=== PATIENT | female | born 1955 | race Caucasian/White ===

== ENCOUNTER 2016-10-12 07:46 | Observation (INO) ==
[2016-10-12] MEDS ORDERED: 0.9 % Sodium Chloride 1,000 ML IVC ONE (08:08)
--- NOTE | 2016-10-12 08:11 | Emergency Department Note ---
Disposition Clinical Impression: Chest pain Qualifiers: Chest pain type: unspecified Qualified Code(s): R07.9 - Chest pain, unspecified Decubitus skin ulcer Qualifiers: Pressure ulcer location: sacral region Pressure ulcer stage: stage 2 Qualified Code(s): L89.152 - Pressure ulcer of sacral region, stage 2 Gastritis Qualifiers: Gastritis type: unspecified gastritis Chronicity: acute Gastritis bleeding: without bleeding Qualified Code(s): K29.00 - Acute gastritis without bleeding UTI (urinary tract infection) Qualifiers: Urinary tract infection type: acute cystitis Hematuria presence: without hematuria Qualified Code(s): N30.00 - Acute cystitis without hematuria Disposition: Admitted As Inpatient Condition: Fair Referrals: NO,PCP [Non-Partnered Physician] - Forms: Work/School Release, ED Satisfaction Letter Time of Disposition: 11:59 General Adult HPI - General Chief complaint: ED General Medical Stated complaint: epigastric pain/ams Time Seen by Provider: 10/12/16 07:51 Source: EMS Limitations: altered mental status Nursing Notes Reviewed: Yes Vital Signs Reviewed: Yes - History of Present Illness HPI Narrative: This is a 60-year-old female with a past medical history of hypertension, asthma , hyperlipidemia, COPD. She presents to the emergency department via EMS from an extended care facility with a chief complaint of epigastric pain. Upon questioning, she admits to having this pain this morning and states that it lasted for 30 minutes. During her explanation, she began to mention episodes of being at a baby shower, which her immediately denied. He states that he has noticed over the last couple days that she has been confused. He states that she was recently prescribed Flexeril. He also states that she recently started prednisone for a COPD exacerbation. Upon further questioning of the patient, she admits that she is currently having pain in her sacrum, and her hips bilaterally. She denies any chest pain, pressure or tightness, cough, shortness of breath, fever, abdominal pain, increased urinary frequency or urgency, Pain Scale: 6 - Related Data Home Medications Medication Instructions Recorded Confirmed Albuterol Sulfate [Ventolin Hfa] 18 gm IH PRN PRN 07/03/16 08/30/16 Cholecalciferol (Vitamin D3) 2,000 unit PO DAILY 07/03/16 08/30/16 [Vitamin D3] Fluticasone/Salmeterol [Advair 1 each IH BID 07/03/16 08/30/16 500-50 Diskus] Gabapentin [Neurontin] 900 mg PO TID 07/03/16 08/30/16 HYDROcodone/Acet 10/325 mg [[place] 1 tab PO Q6HR PRN 07/03/16 08/30/16 10-325 mg] Ipratropium/Albuterol Neb [Duoneb] 3 ml IH BID PRN 07/03/16 08/30/16 Metoprolol [Lopressor] 12.5 mg PO DAILY 08/30/16 08/30/16 Previous Rx's Medication Instructions Recorded Allopurinol [Zyloprim 100 MG] 200 mg PO DAILY tablet 08/31/16 Allergies Allergy/AdvReac Type Severity Reaction Status Date / Time meloxicam [From Mobic] Allergy Hives Verified 07/03/16 06:16 Oxycodone [From Percocet] Allergy Hives Verified 07/03/16 06:16 Constitutional: Denies: fever, chills Eyes: Reports: as per HPI Cardiovascular: Denies: chest pain, palpitations, dyspnea on exertion, edema Gastrointestinal: Reports: abdominal pain (Epigastric, but not currently having it) Genitourinary: Denies: urgency, dysuria, frequency Musculoskeletal: Reports: back pain (Lumbar and sacral), other (Pain in both hips) Neurological: Reports: paresthesias (Not new), confusion. 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 However, some of the conversation she made did not make sense and she had some periods of rambling. ) - Head Head exam: normal inspection - Eye Eye exam: Present: normal appearance. Absent: scleral icterus, conjunctival injection - ENT ENT exam: normal oropharynx, mucous membranes moist - Neck Neck exam: Present: normal inspection, full ROM - Chest Chest inspection: Present: normal inspection, symmetric chest wall rise. Absent : tenderness - Respiratory Respiratory exam: Present: normal lung sounds bilaterally. Absent: respiratory distress, wheezes, accessory muscle use - Cardiovascular Cardiovascular exam: Present: tachycardia, normal heart sounds - Abdominal Exam Abdominal exam: Present: soft, Non-Tender - Extremities Exam Extremities exam: Present: other (Minor skin tearing on the left lower leg approximately 10 cm in length.) - Expanded Lower Extremity Exam Hip/Pelvis exam: Present: other (Sacral decubitus with some yellow purulent drainage. Surrounding erythema.) - Back Exam Back exam: Present: other (Sacral decubiti approximately 7 cm in diameter. There was some purulent yellow drainage. There are also a few satellite- appearing decubiti surrounding it. These were approximately 2 cm in diameter. There was one lumbar decubitus that was a 3 cm in diameter. There was erythema surrounding all areas.) - Neurological Exam Neurological exam: Present: alert, oriented X3, CN II-XII intact. Absent: motor sensory deficit Course - Reevaluation(s) Reevaluation #1: Reported epigastric abdominal pain that was tender to palpation with some nausea. We will order a GI cocktail to help with pain, and a repeat EKG. Time: 09:55 Vital Signs Temperature 98.6 F 10/12/16 07:47 Pulse Rate 121 10/12/16 07:47 Respiratory Rate 16 10/12/16 07:47 Blood Pressure 94/77 10/12/16 07:47 O2 Sat by Pulse Oximetry 92 10/12/16 07:47 Temperature 98.6 F 10/12/16 07:47 Pulse Rate 108 10/12/16 11:42 Respiratory Rate 14 10/12/16 11:42 Blood Pressure 112/77 10/12/16 11:42 O2 Sat by Pulse Oximetry 93 10/12/16 11:42 Oxygen Delivery Oxygen Delivery Nasal Cannula Medical Decision Making - [facility] Narrative Medical decision making narrative: This 60-year-old female presented to the emergency department via EMS from an extended care facility with a chief complaint of epigastric abdominal pain. It was noted that she appeared to be slightly confused. Upon questioning of the patient she had sacral pain as well as lumbar pain. Exam revealed sacral decubiti as well as lumbar decubiti. Due to her confusion, tachycardia, and hypotension, we obtained a CBC, lactate, BMP, urinalysis. We also obtained a CT scan of the lumbar and pelvis in order to see how far the wounds extend. The patient reported epigastric pain during her time in the emergency department and I repeated an EKG. This EKG showed new T-wave inversions in leads V1 and V2 and V3, as well as T-wave flattening in V4 V5 and V6. These changes are new from her EKG performed on 08/30/2016. The CT scans of her pelvis and sacrum came back negative for osteomyelitis and just revealed a draining infection. The urinalysis performed reveals a high level of leukocyte esterase and bacteria. She was given 1 g of Rocephin in the emergency department to help treat this. Due to this patient's chest pain, new T-wave inversions, sacral and lumbar decubiti, and urinary tract infection with some confusion, I feel that it is best to admit this patient for evaluation by the hospitalist. I examined this patient and my medical decision-making was reviewed with the THIRD GRADE TEACHER/PA/Advanced Practice Nurse/Resident Physician. I agree with the documented findings, disposition and treatment plan as described except to the extent set forth below. Patient was seen and evaluated on arrival with EMS and Dr. Harris, high-grade his evaluation and management plan, supervise care the patient's stay. Patient was nursing facility today they thought she was a little confused, she is alert person place and time but does not follow conversation well. Her thinks it is because they placed her on a muscle relaxant. She has also had some chest pain this morning which is now resolved. Was in the center of her chest versus epigastric. No shortness of breath. She is a little uncomfortable lying on her back shows a few decubitus ulcers on her buttocks one has a little bit of drainage. There is no signs of cellulitis. She also has a skin tear in her left lower extremity which is not new and shows no signs of infection. No focal deficits here. Her workup on her and check a troponin urinalysis and reassess. She is in agreement with this plan. Most likely she will need admission. Chest X-Ray 10/12/16 07:52 IMPRESSION: No acute process. D/ / Leighton Aranda MD / Leighton Aranda MD Interpreting Provider: Leighton Aranda MD 1010 hrs.: Waiting on CT. She does have a UTI which we will treat and then determine if she has an ear infection once we get the CT back. She may need admission. 1032 hrs.: Repeat an EKG on her and she does have some ST segment depression in V2 and V3 with no chest pain this was there on her first EKG also but is not so obvious on her old EKG from August. Regarding go ahead and bring her into the hospital she does have baby aspirin already is not having chest pain at this time. Chest X-Ray 10/12/16 07:52 IMPRESSION: No acute process. D/ / Leighton Aranda MD / Leighton Aranda MD Interpreting Provider: Leighton Aranda MD Lumbar Spine CT 10/12/16 08:36 IMPRESSION: Multilevel spinal decompression with expected postsurgical changes. Moderate lumbar scoliosis. Prominent right posterior epidural gas at L2-L3 suspected to be related to disc protrusion related to vacuum disc at this level. No nerve root compromise or significant compression of the thecal sac seen. This finding is favored to be insignificant. No finding worrisome for soft tissue infection or osteomyelitis. Moderate lumbar spondylosis. Cholelithiasis without finding of acute cholecystitis. D/ / Wilmer Valencia MD / Wilmer Valencia MD Interpreting Provider: Wilmer Valencia MD Pelvis CT 10/12/16 08:36 IMPRESSION: Interval left-sided laminectomy and laminotomy in the lower lumbar spine. No finding worrisome for soft tissue or bony infection. 3 cm chronic left ovarian cysts. D/ / Wilmer Valencia MD / Wilmer Valencia MD Interpreting Provider: Wilmer Valencia MD 1118 hrs.: CT shows no signs of osteomyelitis or abscess. Continue with antibiotics for urinalysis, bring her into the hospital to chest pain and the changes on EKG. Give her aspirin. She is pain-free at this time. Impression #1 is chest pain rule out ACS, #2 new ST segment depression rule out ACS, #3 is decubitus ulcer. #4 is dyspepsia. - Lab Data Result diagrams: 10/12/16 08:05 10/12/16 08:05 Lab Results 10/12/16 10/12/16 10/12/16 Range/Units 08:05 08:05 08:05 WBC 10.0 (4.3-11.1) K/mcL RBC 3.05 L (3.82-4.97) M/mcL Hgb 10.5 L (11.5-15.4) g/dL Hct 34.2 L (35.3-44.9) % MCV 112.1 H (83.0-100.0) fL MCH 34.4 H (28.0-33.3) pg MCHC 30.7 L (31.6-35.5) g/dL RDW 15.3 H (11.5-14.5) % Plt Count 238 (140-400) K/mcL MPV 9.4 (9.4-12.4) fL Immature Gran % 1.3 (0-4) % Seg Neutrophils % 64.1 % Lymphocytes % 22.9 % Monocytes % 11.4 % Eosinophils % 0.1 % Basophils % 0.2 % Neutrophils # 6.4 (1.6-8.9) K/mcL Lymphocytes # 2.3 (0.6-4.6) K/mcL Monocytes # 1.1 (0.0-1.3) K/mcL Eosinophils # 0.0 (0.0-0.6) K/mcL Basophils # 0.0 (0.0-0.2) K/mcL Platelet Estimate Normal (Normal) Macrocytosis Present A (Not Present) ESR 94 H (0-15) mm/hr Sodium 139 (136-145) mEq/L Potassium 3.9 (3.5-4.5) mEq/L Chloride 101 (98-109) mEq/L Carbon Dioxide 31 H (19-29) mEq/L BUN 12 (7-20) mg/dL Creatinine 0.62 (0.57-1.11) mg/dL Est GFR ( Amer) > 60 (> 60) Est GFR (Non-Af Amer) > 60 (> 60) BUN/Creatinine Ratio 19 (6-26) Glucose 85 (70-99) mg/dL Calculated Osmolality 287 (280-300) Lactic Acid (0.5-2.2) mmol/L Calcium 8.9 (8.6-10.8) mg/dL Troponin I (0-0.03) ng/mL Urine Color (Yellow) Urine Clarity (Clear) Urine pH (5.0-8.0) pH Units Ur Specific [place] (1.010-1.025) Urine Protein (Neg-Trace) mg/dL Urine Glucose (UA) (Normal) mg/dL Urine Ketones (Negative) mg/dL Urine Blood (Negative) Urine Nitrite (Negative) Urine Bilirubin (Negative) Urine Urobilinogen (Normal) mg/dL Ur Leukocyte Esterase (Negative) Urine Microscopic RBC (0-3) per hpf Urine Microscopic WBC (0-3) per hpf Ur Squamous Epith Cells (None-Few) per lpf Urine Bacteria (None-Few) per hpf Hyaline Casts (None-Few) per lpf Urine Yeast (None Seen) per hpf Ur Culture Indicated? (NO) 10/12/16 10/12/16 10/12/16 Range/Units 08:05 08:05 09:03 WBC (4.3-11.1) K/mcL RBC (3.82-4.97) M/mcL Hgb (11.5-15.4) g/dL Hct (35.3-44.9) % MCV (83.0-100.0) fL MCH (28.0-33.3) pg MCHC (31.6-35.5) g/dL RDW (11.5-14.5) % Plt Count (140-400) K/mcL MPV (9.4-12.4) fL Immature Gran % (0-4) % Seg Neutrophils % % Lymphocytes % % Monocytes % % Eosinophils % % Basophils % % Neutrophils # (1.6-8.9) K/mcL Lymphocytes # (0.6-4.6) K/mcL Monocytes # (0.0-1.3) K/mcL Eosinophils # (0.0-0.6) K/mcL Basophils # (0.0-0.2) K/mcL Platelet Estimate (Normal) Macrocytosis (Not Present) ESR (0-15) mm/hr Sodium (136-145) mEq/L Potassium (3.5-4.5) mEq/L Chloride (98-109) mEq/L Carbon Dioxide (19-29) mEq/L BUN (7-20) mg/dL Creatinine (0.57-1.11) mg/dL Est GFR ( Amer) (> 60) Est GFR (Non-Af Amer) (> 60) BUN/Creatinine Ratio (6-26) Glucose (70-99) mg/dL Calculated Osmolality (280-300) Lactic Acid 1.6 (0.5-2.2) mmol/L Calcium (8.6-10.8) mg/dL Troponin I 0.01 (0-0.03) ng/mL Urine Color Dark Yellow (Yellow) Urine Clarity Cloudy A (Clear) Urine pH 5.5 (5.0-8.0) pH Units Ur Specific [place] 1.025 (1.010-1.025) Urine Protein Negative (Neg-Trace) mg/dL Urine Glucose (UA) Normal (Normal) mg/dL Urine Ketones Negative (Negative) mg/dL Urine Blood Negative (Negative) Urine Nitrite Negative (Negative) Urine Bilirubin Small H (Negative) Urine Urobilinogen Normal (Normal) mg/dL Ur Leukocyte Esterase Large H (Negative) Urine Microscopic RBC 0-3 (0-3) per hpf Urine Microscopic WBC 30-50 H (0-3) per hpf Ur Squamous Epith Cells Few (None-Few) per lpf Urine Bacteria Moderate H (None-Few) per hpf Hyaline Casts Few (None-Few) per lpf Urine Yeast Many H (None Seen) per hpf Ur Culture Indicated? YES A (NO) - EKG Data EKG #1 EKG results narrative: Ventricular rate 121 bpm, CT interval 125 ms, QRS duration 85 ms QT, 304 ms, QTC 376 ms, normal axis EKG shows normal: sinus rhythm Rate: tachycardia [place]/QRS: normal Interpretation: unchanged when compared to prior tracing (date) EKG #2 EKG results narrative: 10/12/2016, 10:32 AM Ventricular rate 109 bpm, CT interval 134 ms, QRS duration 88 ms, QT 347 ms, QTC 411 ms, normal axis Sinus tachycardia with T waves inversions in V1, V2, V3 and some T-wave flattening in V4, V5, V6. This has increased from her EKG on 08/30/2016. These T-wave inversions are more evident than the one performed today at 7:50 AM on 10/12/2016.
[2016-10-12 08:26] LABS: Basophils % 0.2 %; Eosinophils % 0.1 %; Hematocrit 34.2 % (35.3-44.9); Hemoglobin 10.5 g/dL (11.5-15.4); Immature Granulocytes % 1.3 % (0-4); Lymphocytes # 2.3 K/mcL (0.6-4.6); Lymphocytes % 22.9 %; Mean Corpuscular HGB Conc 30.7 g/dL (31.6-35.5); Mean Corpuscular Hemoglobin 34.4 pg (28.0-33.3); Mean Corpuscular Volume 112.1 fL (83.0-100.0); Mean Platelet Volume 9.4 fL (9.4-12.4); Monocytes # 1.1 K/mcL (0.0-1.3); Monocytes % 11.4 %; Neutrophils # 6.4 K/mcL (1.6-8.9); Platelet Count 238 K/mcL (140-400); Red Blood Count 3.05 M/mcL (3.82-4.97); Red Cell Distribution Width 15.3 % (11.5-14.5); Segmented Neutrophils % 64.1 %
[2016-10-12 08:32] LABS: BUN/Creatinine Ratio 19 (6-26); Blood Urea Nitrogen 12 mg/dL (7-20); Calcium 8.9 mg/dL (8.6-10.8); Carbon Dioxide 31 mEq/L (19-29); Chloride 101 mEq/L (98-109); Glucose 85 mg/dL (70-99); Osmolality,Calculated 287 (280-300); Potassium 3.9 mEq/L (3.5-4.5); Sodium 139 mEq/L (136-145); eGFR For African Americans > 60 (> 60); eGFR For Non-African Americans > 60 (> 60)
[2016-10-12] MEDS ORDERED: *HR* FentaNYL (PF) 100 MCG/2 ML VIAL IVP ONE (08:50)
[2016-10-12 08:58] LABS: Macrocytosis Present (Not Present); Platelet Estimate Normal (Normal)
[2016-10-12 09:34] LABS: Bilirubin,Urine Small (Negative); Blood,Urine Negative (Negative); Clarity,Urine Cloudy (Clear); Color,Urine Dark Yellow (Yellow); Glucose,Urine (UA) Normal (Normal); Ketones,Urine Negative (Negative); Leukocyte Esterase,Urine Large (Negative); Nitrite,Urine Negative (Negative); PH,Urine 5.5 pH Units (5.0-8.0); Protein,Urine Negative (Neg-Trace); Specific Gravity,Urine 1.025 (1.010-1.025); Urobilinogen,Urine Normal (Normal)
[2016-10-12] MEDS ORDERED: Ondansetron 4 MG/2 ML VIAL IVP ONE (09:47)
[2016-10-12] MEDS ORDERED: GI Cocktail 40 ML EACH PO ONE (09:51)
[2016-10-12 09:55] LABS: RBC,Urine 0-3 per hpf (0-3); WBC,Urine 30-50 per hpf (0-3)
[2016-10-12 09:56] LABS: Bacteria,Urine Moderate per hpf (None-Few); Hyaline Casts,Urine Few per lpf (None-Few); Yeast,Urine Many per hpf (None Seen)
[2016-10-12 09:57] LABS: Squamous Epithelial Cell,Urine Few per lpf (None-Few)
[2016-10-12] MEDS ORDERED: Aspirin 325 MG TABLET PO ONE (11:16)
[2016-10-12] MEDS ORDERED: Acetaminophen 325 MG TABLET PO PRN (13:08)
[2016-10-12] MEDS ORDERED: Ondansetron 4 MG/2 ML VIAL IVP PRN (13:08)
[2016-10-12] MEDS ORDERED: Naloxone 0.4 MG/ML INJ IVP PRN (13:08)
--- NOTE | 2016-10-12 13:16 | Internal Med History&Physical ---
Date of Encounter: 10/12/16 Time of Encounter: 12:00 Assessment and Plan (1) Acute encephalopathy Current visit: Yes Status: Acute Likely drug-induced and related to underlying UTI. Hold muscle relaxants and narcotic pain medications, gabapentin at this time and resume gradually if the patient is in severe pain. (2) Chest pain Current visit: Yes Status: Acute Atypical chest pain, unclear history. EKG shows new changes of T-wave inversions in V2, V3 and flattened T waves in V4 through V6. Continue telemetry monitoring and trend troponins. Continue beta barby. Nuclear stress test in a.m. Qualifiers: Chest pain type: unspecified Qualified Code(s): R07.9 - Chest pain, unspecified (3) UTI (urinary tract infection) Current visit: Yes Status: Acute Patient symptoms of nausea and vomiting may be related to UTI. Urinalysis is suggestive of UTI. Continue IV Rocephin and follow up urine culture. Qualifiers: Urinary tract infection type: acute cystitis Hematuria presence: without hematuria Qualified Code(s): N30.00 - Acute cystitis without hematuria (4) Essential hypertension Current visit: Yes Status: Chronic (5) COPD (chronic obstructive pulmonary disease) Current visit: Yes Status: Chronic Not noted to be in acute exacerbation. Continue when necessary bronchodilators and supplemental oxygen as needed. Qualifiers: COPD type: emphysema Emphysema type: unspecified Qualified Code(s): J43.9 - Emphysema, unspecified (6) Tobacco abuse Current visit: Yes Status: Chronic Does not require nicotine transdermal patch at this time as she has not smoked for the last 4-5 weeks. (7) Weakness generalized Current visit: Yes Status: Chronic Secondary to recent back surgery and bedbound status. Physical and occupational therapy. (8) Tachycardia Current visit: Yes Status: Chronic Patient appears to have chronic sinus tachycardia, which could be related to underlying COPD and hypoxemia. Continue beta barby and titrate up as tolerated. (9) Decubitus skin ulcer Current visit: Yes Status: Chronic Present on admission. Noted to have a small opening of her midline back surgical incision likely due to sedentary status. Avoid friction, frequent repositioning. No signs of infection. Qualifiers: Pressure ulcer location: sacral region Pressure ulcer stage: stage 2 Qualified Code(s): L89.152 - Pressure ulcer of sacral region, stage 2 Internal Medicine - H&P: HPI Chief complaint: Chest pain Admitted From: Emergency Dept Plans for Post Hospital Care: Transfer Inp Rehab Fac History of present illness: Ms. Renee is a 60 year old female with history of COPD and recent back surgery , discharged to [facility] from [place] about 3 and half weeks ago, was sent in for evaluation of chest pain. Patient is slightly confused and unable to provide appropriate history likely due to pain medications and history is also obtained with the help of her at bedside. Patient reports that she began to have epigastric and lower chest pain last night, which has been intermittent and associated with 2 episodes of nausea and nonbloody vomiting this morning. She further reports some weird sensation in her upper abdomen but is unable to elaborate her symptoms further. Patient has been bedbound since her recent back surgery, working with physical therapy but unable to ambulate due to back pain and weakness. She also developed a small ulcer on her back and she reports significant pain from this. No reported fever, chills, cough, shortness of breath or diarrhea. Past Med Surg Social Fam HX - Past Medical History Medical history: asthma, COPD, hyperlipidemia, hypertension, other Psychiatric history: no psych history - Past Surgical History Surgical History: knee replacement (Left), orthopedic, other (Right shoulder rotator cuff surgery), other (Back surgery-laminectomy and possible spinal fusion) - Social History Smoking Status: Current every day smoker (Did not smoke since her recent hospitalization at [facility], about a month ago) Packs per day: 1-2 packs per day Smokeless Tobacco Status: No Alcohol use: heavy (Several drinks every day, last drink about a month ago) Drug use: none Occupational status: disabled Current living situation: [facility] Activity Level: Bed bound Recent Out of Country Travel Within the Last 8 Weeks: No - Family History Mother Living Status: Hx Family Cardiac Disorders: Yes ([place]) Hx Family Respiratory Disorders: Yes (COPD) Hx Family Cancer: No Hx Family GI Disorders: No Hx Family Endocrine Disorder: No Hx Family Neuromuscular Disorders: No Hx Family Neurologic Disorders: No Hx Family HEENT Disorders: No Hx Family Autoimmune Disorders: No Father Hx Family Cardiac Disorders: Yes (CAD) Internal Medicine - H&P: Meds Albuterol Sulfate [Ventolin Hfa] 18 gm IH PRN PRN 07/03/16 [History] Cholecalciferol (Vitamin D3) [Vitamin D3] 2,000 unit PO DAILY 07/03/16 [History] Fluticasone/Salmeterol [Advair 500-50 Diskus] 1 each IH BID 07/03/16 [History] Gabapentin [Neurontin] 900 mg PO TID 07/03/16 [History] HYDROcodone/Acet 10/325 mg [[place] 10-325 mg] 1 tab PO Q6HR PRN 07/03/16 [History ] Ipratropium/Albuterol Neb [Duoneb] 3 ml IH BID PRN 07/03/16 [History] Metoprolol [Lopressor] 12.5 mg PO DAILY 08/30/16 [History] Allopurinol [Zyloprim 100 MG] 200 mg PO DAILY tablet 08/31/16 [Rx] Allergies meloxicam [From Mobic] Allergy (Verified 07/03/16 06:16) Hives Oxycodone [From Percocet] Allergy (Verified 07/03/16 06:16) Hives All Systems PM: A 10-system review of systems was performed and is negative for pertinent findings except as documented above in the HPI. - Constitutional Constitutional: no chills, no fever(s), no night sweats - EENT Eyes: no change in vision, no discharge, no pain, no photophobia Ears: no ear discharge, no ear pain, no tinnitus Nose, mouth and throat: no dysphagia, no nasal discharge, no neck pain, no sore throat - Cardiovascular Cardiovascular ROS IM: chest pain - Respiratory Respiratory: no cough, no dyspnea, no wheezing, no excessive phlegm production - Gastrointestinal Gastrointestinal: abdominal pain, bloating, nausea, vomiting, no diarrhea, no hematemesis, no hematochezia, no melena - Genitourinary Genitourinary: no change in urinary stream, no dysuria, no flank pain, no hematuria - Musculoskeletal Musculoskeletal ROS IM: back pain, limited range of motion, muscle weakness - Integumentary Integumentary IM: no rash, no unusual bruising - Neurological Neurological ROS: confusion, no convulsions, no focal weakness, no numbness, no tingling, no tremor(s) - Hematologic/Lymphatic Hematologic/Lymphatic: no easy bruising - Constitutional Vitals: Temp Pulse Resp BP Pulse Ox 98.6 F 108 16 112/74 93 10/12/16 07:47 10/12/16 11:42 10/12/16 12:43 10/12/16 12:43 10/12/16 11:42 General appearance: Present: A&O X 2, answers questions appropriately (Problems with memory and intermittent confusion) - Respiratory Respiratory exam: Present: CTAB (Bilateral coarse breath sounds). Absent: accessory muscle use, rales, rhonchi, wheezes - Cardiovascular Cardiovascular exam: Present: RRR, +S1, +S2, tachycardia. Absent: diastolic murmur, gallop, rubs, systolic murmur - GI/Abdominal GI/Abdominal exam: Present: normal bowel sounds, soft, no peritoneal signs. Absent: distended, tenderness - Extremities Exam Extremities exam: Present: full ROM, warm, radial pulses palpable and symetrical. Absent: calf tenderness, cyanotic, pedal edema - Incison Incision: Present: open (Midline back incision noted to be open about 1 cm, no active discharge or signs of infection.) - Neurological Exam Neurological exam: Present: CN II-XII intact, oriented X3, no focal deficits, strengths equal and symetr throughout (4/5 motor power in left lower extremity) . Absent: pronater drift, facial droop, speech deficit - Skin Skin exam: Present: dry, intact, petechiae (Bilateral extremities) Internal Med - H&P Results - Labs CBC & Chem 7: 10/12/16 08:05 10/12/16 08:05 - EKG Data -: EKG Interpreted by Myself EKG shows normal: sinus rhythm, ST-T waves (Noted to have T-wave inversions in V2, V3 and flattening T waves in V4 through V6) Rate: tachycardia
[2016-10-12] MEDS ORDERED: Ipratropium/Albuterol Neb 3 ML IH PRN (13:36)
[2016-10-12] MEDS ORDERED: *HR* HYDROcodone/Acet 10/325 mg TABLET PO PRN (18:41)
[2016-10-12] MEDS ORDERED: Budesonide/Formoterol 160/4.5 MDI IH SCH (21:00)
[2016-10-13 01:11] LABS: Basophils % 0.2 %; Eosinophils % 0.5 %; Hematocrit 29.4 % (35.3-44.9); Hemoglobin 9.3 g/dL (11.5-15.4); Immature Granulocytes % 1.1 % (0-4); Lymphocytes # 2.2 K/mcL (0.6-4.6); Lymphocytes % 25.7 %; Mean Corpuscular HGB Conc 31.6 g/dL (31.6-35.5); Mean Corpuscular Hemoglobin 35.4 pg (28.0-33.3); Mean Corpuscular Volume 111.8 fL (83.0-100.0); Mean Platelet Volume 9.8 fL (9.4-12.4); Monocytes # 1.1 K/mcL (0.0-1.3); Monocytes % 12.9 %; Platelet Count 212 K/mcL (140-400); Red Blood Count 2.63 M/mcL (3.82-4.97); Red Cell Distribution Width 15.7 % (11.5-14.5); Segmented Neutrophils % 59.6 %
[2016-10-13 01:26] LABS: BUN/Creatinine Ratio 19 (6-26); Blood Urea Nitrogen 13 mg/dL (7-20); Calcium 8.6 mg/dL (8.6-10.8); Carbon Dioxide 28 mEq/L (19-29); Chloride 104 mEq/L (98-109); Chol/HDL Ratio 5.7 (0-4.9); Cholesterol 142 mg/dL (< 200); Glucose 100 mg/dL (70-99); HDL Cholesterol 25 mg/dL (40-59); LDL Cholesterol,Calculated 82 mg/dL (0-99); Magnesium 1.3 mg/dL (1.6-2.6); Osmolality,Calculated 290 (280-300); Potassium 3.7 mEq/L (3.5-4.5); Sodium 140 mEq/L (136-145); Triglycerides 174 mg/dL (< 150); eGFR For African Americans > 60 (> 60); eGFR For Non-African Americans > 60 (> 60)
[2016-10-13 01:48] LABS: Anisocytosis 1+ (Not Present)
[2016-10-13 01:52] LABS: Macrocytosis Present (Not Present)
[2016-10-13 01:53] LABS: Platelet Estimate Normal (Normal)
[2016-10-13] MEDS ORDERED: Regadenoson 0.4 MG/5 ML SYRINGE IVP ONE (06:00)
--- NOTE | 2016-10-13 08:21 | Electrocardiograph Report ---
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
--- NOTE | 2016-10-13 08:23 | Electrocardiograph Report ---
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
[2016-10-13] MEDS ORDERED: Metoprolol XL (24 HR) Succ 25 MG TAB.ER.24H PO SCH (09:00)
[2016-10-13] MEDS: *HR* HYDROcodone/Acet 10/325 mg TABLET PO PRN ×2 (09:24→16:58)
--- NOTE | 2016-10-13 09:28 | Internal Med Progress Note ---
Date of Encounter: 10/13/16 Time of Encounter: 09:28 - Assessment and plan (1) UTI (urinary tract infection) Current Visit: Yes Status: Acute Assessment and plan: Acute metabolic encephalopathy likely secondary to UTI Continue Rocephin day 2 Await final report of urine culture Fall precautions Qualifiers: Urinary tract infection type: acute cystitis Hematuria presence: without hematuria Qualified Code(s): N30.00 - Acute cystitis without hematuria (2) Abnormal EKG Current Visit: Yes Status: Acute Assessment and plan: EKG showed T-wave inversions in the anterior leads and flattening on the lateral leads, unchanged from prior EKG Troponins are negative. Stress test scheduled (3) Acute encephalopathy Current Visit: Yes Status: Acute (4) Volume overload Current Visit: Yes Status: Acute Assessment and plan: No history of CHF Start Lasix, avoid IV fluids Qualifiers: Hypervolemia type: unspecified Qualified Code(s): E87.70 - Fluid overload, unspecified (5) Weakness generalized Current Visit: Yes Status: Chronic Assessment and plan: Bilateral lower extremity weakness, upper extremities are less weak (6) Neuroforaminal stenosis of lumbar spine Current Visit: No Status: Chronic Assessment and plan: Recent laminectomy. The patient does not complain of any more weakness on her legs worse than when she left [place]. Consider MRI if worse No incontinence (7) COPD (chronic obstructive pulmonary disease) Current Visit: Yes Status: Chronic Assessment and plan: No exacerbation Qualifiers: COPD type: emphysema Emphysema type: unspecified Qualified Code(s): J43.9 - Emphysema, unspecified (8) Tobacco abuse Current Visit: Yes Status: Chronic Assessment and plan: Smoking cessation counseling, nicotine patch (9) Decubitus skin ulcer Current Visit: Yes Status: Chronic Qualifiers: Pressure ulcer location: sacral region Pressure ulcer stage: stage 2 Qualified Code(s): L89.152 - Pressure ulcer of sacral region, stage 2 - Subjective Interval history: The patient says that she has been having chest pain on and off for the past few days. Denies any dysuria at the moment. No dizziness. Her legs have been weak but not weaker than when she left [place] after that spine surgical procedure. Denies any shortness of breath or chest pain at the moment. No fevers overnight. Less confused - Constitutional Vitals: Temp Pulse Resp BP Pulse Ox 98.2 F 105 15 118/90 90 10/13/16 07:25 10/13/16 07:25 10/13/16 07:25 10/13/16 07:25 10/13/16 07:25 General appearance: Present: A&O X 3, answers questions appropriately (Problems with memory and intermittent confusion) - Head Head exam: Present: atraumatic, normocephalic - Eye Eye exam: Present: PERRL, conjuntiva pink, sclera anicteric Pupils: Present: PERRL - Neck Neck exam general surgery: Present: supple, trachea midline. Absent: lymphadenopathy - Respiratory Respiratory exam: Present: decreased breath sounds, CTAB, rales (Bibasilar fine crackles). Absent: accessory muscle use, rhonchi, wheezes - Cardiovascular Cardiovascular exam: Present: RRR, +S1, +S2, tachycardia. Absent: diastolic murmur, gallop, rubs, systolic murmur - GI/Abdominal GI/Abdominal exam: Present: normal bowel sounds, soft, no peritoneal signs. Absent: distended, tenderness - Extremities Exam Extremities exam: Present: warm, radial pulses palpable and symetrical. Absent : calf tenderness, cyanotic, pedal edema - Neurological Exam Neurological exam: Present: CN II-XII intact, oriented X3, no focal deficits. Absent: pronater drift, facial droop, speech deficit - Skin Skin exam: Present: dry. Absent: intact (Left husain laceration, Stage II sacral pressure ulcer) Internal Medicine: Result - Labs CBC & Chem 7: 10/13/16 00:42 10/13/16 00:42 Labs: Short CBC 10/13/16 Range/Units 00:42 WBC 8.4 (4.3-11.1) K/mcL Hgb 9.3 L (11.5-15.4) g/dL Hct 29.4 L (35.3-44.9) % Plt Count 212 (140-400) K/mcL Neutrophils # 5.0 (1.6-8.9) K/mcL BMP 10/13/16 00:42 Sodium 140 Potassium 3.7 Chloride 104 Carbon Dioxide 28 BUN 13 Creatinine 0.69 Glucose 100 H Calcium 8.6 Cardiac Enzymes 10/12/16 10/12/16 10/13/16 Range/Units 13:32 19:27 00:42 Troponin I 0.00 0.00 0.00 (0-0.03) ng/mL Consult Discharge Plan - Plan Referrals: Renard Spears DO [Primary Care Provider] - (Web request 10/12/2016)
[2016-10-13] MEDS: Nicotine 21 MG PATCH.TD24 TD SCH (10:23)
[2016-10-13] MEDS: Budesonide/Formoterol 160/4.5 MDI IH SCH ×2 (10:47→19:49)
[2016-10-13] MEDS: Furosemide 40 MG/4 ML VIAL IVP SCH (10:52)
[2016-10-13] MEDS ORDERED: Magnesium Sulfate 2 GM in D5% in Water 100 ML IVPB ONE (12:00)
[2016-10-13] MEDS: Magnesium Oxide 400 MG TABLET PO SCH ×2 (12:39→21:25)
[2016-10-13] MEDS: Fluconazole 100 MG TABLET PO SCH (12:40)
--- NOTE | 2016-10-13 13:00 | Cardiology Consult Note ---
Date of Encounter: 10/13/16 Time of Encounter: 12:40 Assessment and Plan (1) Tachycardia Current Visit: Yes Status: Chronic Upon review, HR typically 103-124 in the outpatient setting per PCP notes. Telemetry review: avg KR=945 ST. No arrhythmia noted. ECG upon presentation demonstrates non-specific ST-T wave changes HR 121 ST--no significant changes from prior ECG in June. HR elevated likely secondary to UTI. Of note, HgB 9.3, ESR 95, and has x3 decubitis ulcers on coccyx (stage 2) which could also contribute to tachycardia. Mag 1.3--will also replace with IVPB. Check TSH. Check echocardiogram. Recommend further evaluation of anemia, will defer to primary service. (2) Chest pain Current Visit: Yes Status: Acute Atypical chest pain in the setting of AMS d/t UTI. Suspect GI in etiology as occurs after meals. Troponin negative x4, no significant ECG changes compared to prior study. Echo ordered. No further testing recommended at this time, will cancel stress test. Qualifiers: Chest pain type: unspecified Qualified Code(s): R07.9 - Chest pain, unspecified Discussion w patient/family: The assessment and plan as outlined above was discussed with the patient and/or family members who expressed understanding and agreement. All questions were answered. Thank you for involving us in the care of your patient. Please call with any questions. The patient will be discussed and reviewed with Dr. Carlisle; changes to be made accordingly. History of Present Illness Consult date: 10/13/16 Requesting physician: Pablo Garcia Consult reason: ECG changes Chief complaint: AMS, left-sided chest/epigastric pain History of present illness: Ms. Renee is a 60 year old female with PMHx significant for COPD, HTN, HLD, and recent back surgery ([place]) who presented to the ED due to complaints of epigastric/left-sided chest discomfort and also worsening confusion at the [facility]. Patient has been at [facility] since d/c from [place] nearly 1 month ago; she states she is primarily bedbound. Reports left-sided chest/epigastric discomfort that typically occurs after taking morning pills and often occurs after eating. Upon arrival to ED she was found to have UTI. ECG demonstrates non -specific ST changes. Cardiology consulted today for abnormal ECG. She continues to be confused upon exam. Past Med Surg Social Fam HX - Past Medical History Attestation: Yes The following information was validated with the patient. Source: patient Medical history: asthma, COPD, hyperlipidemia, hypertension Psychiatric history: no psych history - Past Surgical History Surgical History: knee replacement, orthopedic, other, other (recent back surgery at [place]) - Social History Smoking Status: Current every day smoker Packs per day: 1-2 packs per day--quit 3 weeks ago Smokeless Tobacco Status: No Alcohol use: heavy (has quit since back surgery, now in ECF) Drug use: none Current living situation: [facility] - Family History Mother Living Status: Hx Family Cardiac Disorders: Yes ([place]) Hx Family Respiratory Disorders: Yes (COPD) Hx Family Cancer: No Hx Family GI Disorders: No Hx Family Endocrine Disorder: No Hx Family Neuromuscular Disorders: No Hx Family Neurologic Disorders: No Hx Family HEENT Disorders: No Hx Family Autoimmune Disorders: No Father Hx Family Cardiac Disorders: Yes (CAD) Medications and Allergies Albuterol Sulfate [Ventolin Hfa] 2 puff IH Q4H PRN 07/03/16 [History] Fluticasone/Salmeterol [Advair 500-50 Diskus] 1 each IH BID 07/03/16 [History] Gabapentin [Neurontin] 300 mg PO HS 07/03/16 [History] HYDROcodone/Acet 10/325 mg [[place] 10-325 mg] 2 tab PO Q4H 07/03/16 [History] Ipratropium/Albuterol Neb [Duoneb] 3 ml IH QID PRN 07/03/16 [History] Allopurinol [Zyloprim 100 MG] 200 mg PO DAILY tablet 08/31/16 [Rx] Cyclobenzaprine [Flexeril] 10 mg PO Q8H 10/12/16 [History] Docusate [Colace] 100 mg PO BID 10/12/16 [History] Furosemide [Lasix] 40 mg PO DAILY 10/12/16 [History] HYDROcodone/Acet 10/325 mg [[place] 10-325 mg] 2 tab PO Q4HR PRN 10/12/16 [History ] Metoprolol XL (24 HR) Succ [Toprol XL] 12.5 mg PO DAILY 10/12/16 [History] Nystatin POWDER [Nystop] 1 appl TP DAILY PRN 10/12/16 [History] Polyethylene Glycol 3350 [Gavilax] 17 gm PO DAILY 10/12/16 [History] Potassium Chloride [K-Tab ER] 20 meq PO DAILY 10/12/16 [History] Allergies meloxicam [From Mobic] Allergy (Verified 07/03/16 06:16) Hives Oxycodone [From Percocet] Allergy (Verified 07/03/16 06:16) Hives tramadol Adverse Reaction (Verified 10/12/16 16:44) See Comments per assisted list All Systems Review: A 10-system review of systems was performed and is negative for pertinent findings except as documented above in the HPI. - Cardiovascular Cardiovascular: as per HPI Physical Examination Vital Signs, Last 4 Hours Temp Pulse Resp BP Pulse Ox 10/13/16 11:25 98.4 F 111 13 120/80 95 10/13/16 10:56 90 General: Conversant, No Apparent Distress, Other (morbidly obese, confused at times. ) HEENT: Atraumatic, Normocephaly, Mucus Membranes Moist Cardiac: Reg Rate and Rhythm, Normal S1 and S2 Lungs: Other (Anterior wheezes) Neuro: Alert and responsive (alert to self and place, confused at times. ) Abdomen: Soft Skin: No rashes noted on visualized skin Musculoskeletal: No Chest Wall Tenderness Extremities: No Edema, Normal Pulses Other: Reported x3 stage 2 decubitis ulcers on coccyx per bedside RN Results 10/13/16 00:42 10/13/16 00:42 Lab Results 10/12/16 10/12/16 10/13/16 13:32 19:27 00:42 WBC Hgb Hct Plt Count Sodium Potassium Chloride Carbon Dioxide BUN Creatinine Glucose Calcium Magnesium Troponin I 0.00 0.00 0.00 10/13/16 10/13/16 00:42 00:42 WBC 8.4 Hgb 9.3 L Hct 29.4 L Plt Count 212 Sodium 140 Potassium 3.7 Chloride 104 Carbon Dioxide 28 BUN 13 Creatinine 0.69 Glucose 100 H Calcium 8.6 Magnesium 1.3 L Troponin I - Imaging and Cardiology Echo: pending Other Results: 12 hour tele: avg WO=[id number] ST. No significant event noted. - EKG Interpretation EKG results cardiology: personally reviewed Consult Discharge Plan - Plan Referrals: Renard Spears DO [Primary Care Provider] - (Web request 10/12/2016)
[2016-10-13 14:00] LABS: Thyroid Stimulating Hormone 1.381 mcIU/mL (0.350-4.840)
[2016-10-14] MEDS: *HR* Enoxaparin 40 MG/0.4 ML SYRINGE SQ SCH (05:39)
[2016-10-14 06:48] LABS: BUN/Creatinine Ratio 18 (6-26); Blood Urea Nitrogen 11 mg/dL (7-20); Calcium 8.2 mg/dL (8.6-10.8); Carbon Dioxide 28 mEq/L (19-29); Chloride 103 mEq/L (98-109); Glucose 75 mg/dL (70-99); Osmolality,Calculated 284 (280-300); Potassium 3.6 mEq/L (3.5-4.5); Sodium 138 mEq/L (136-145); eGFR For African Americans > 60 (> 60); eGFR For Non-African Americans > 60 (> 60)
[2016-10-14 06:53] LABS: Hematocrit 28.9 % (35.3-44.9); Hemoglobin 9.1 g/dL (11.5-15.4); Mean Corpuscular HGB Conc 31.5 g/dL (31.6-35.5); Mean Corpuscular Hemoglobin 35.3 pg (28.0-33.3); Mean Platelet Volume 9.8 fL (9.4-12.4); Platelet Count 185 K/mcL (140-400); Red Blood Count 2.58 M/mcL (3.82-4.97); Red Cell Distribution Width 15.9 % (11.5-14.5)
[2016-10-14] MEDS: Budesonide/Formoterol 160/4.5 MDI IH SCH ×2 (08:08→19:45)
[2016-10-14] MEDS: Magnesium Oxide 400 MG TABLET PO SCH ×2 (09:48→19:46)
[2016-10-14] MEDS: Fluconazole 100 MG TABLET PO SCH (09:49)
[2016-10-14] MEDS: Furosemide 40 MG/4 ML VIAL IVP SCH (09:49)
[2016-10-14] MEDS: Nicotine 21 MG PATCH.TD24 TD SCH (09:51)
--- NOTE | 2016-10-14 10:06 | Discharge Summary ---
<Luis Ziegler - Last Filed: 10/14/16 15:39> Date of Encounter: 10/14/16 Time of Encounter: 10:02 - Discharge Diagnosis (1) Weakness generalized Priority: Primary Status: Chronic Comments: Likely secondary to UTI, decubitus ulcers, increased cardiac demand 2/2 tachycardia (2) Chest pain Priority: Primary Status: Resolved Comments: Possibly due to GI causes vs cardiac Qualifiers: Chest pain type: other chest pain Qualified Code(s): R07.89 - Other chest pain; R07.8 - Other chest pain (3) Decubitus skin ulcer Priority: Primary Status: Chronic Qualifiers: Pressure ulcer location: sacral region Pressure ulcer stage: stage 2 Qualified Code(s): L89.152 - Pressure ulcer of sacral region, stage 2 (4) UTI (urinary tract infection) Priority: Primary Status: Acute Qualifiers: Urinary tract infection type: acute cystitis Hematuria presence: without hematuria Qualified Code(s): N30.00 - Acute cystitis without hematuria (5) COPD (chronic obstructive pulmonary disease) Priority: Secondary Status: Chronic Qualifiers: COPD type: emphysema Emphysema type: unspecified Qualified Code(s): J43.9 - Emphysema, unspecified (6) Acute encephalopathy Priority: Primary Status: Resolved Comments: Likely secondary to infection vs cardiac - Discharge Medications Prescriptions: Fluconazole [Diflucan] 100 mg PO DAILY #13 tab Home Medications: Albuterol Sulfate [Ventolin Hfa] 2 puff IH Q4H PRN 07/03/16 [History] Fluticasone/Salmeterol [Advair 500-50 Diskus] 1 each IH BID 07/03/16 [History] Gabapentin [Neurontin] 300 mg PO HS 07/03/16 [History] HYDROcodone/Acet 10/325 mg [[place] 10-325 mg] 2 tab PO Q4H 07/03/16 [History] Ipratropium/Albuterol Neb [Duoneb] 3 ml IH QID PRN 07/03/16 [History] Allopurinol [Zyloprim 100 MG] 200 mg PO DAILY tablet 08/31/16 [Rx] Cyclobenzaprine [Flexeril] 10 mg PO Q8H 10/12/16 [History] Docusate [Colace] 100 mg PO BID 10/12/16 [History] Furosemide [Lasix] 40 mg PO DAILY 10/12/16 [History] HYDROcodone/Acet 10/325 mg [[place] 10-325 mg] 2 tab PO Q4HR PRN 10/12/16 [History ] Metoprolol XL (24 HR) Succ [Toprol Xl] 12.5 mg PO DAILY 10/12/16 [History] Nystatin POWDER [Nystop] 1 appl TP DAILY PRN 10/12/16 [History] Polyethylene Glycol 3350 [Gavilax] 17 gm PO DAILY 10/12/16 [History] Potassium Chloride [K-Tab ER] 20 meq PO DAILY 10/12/16 [History] Fluconazole [Diflucan] 100 mg PO DAILY #13 tab 10/14/16 [Rx] Allergies/Adverse Reactions: Allergies meloxicam [From Mobic] Allergy (Verified 07/03/16 06:16) Hives Oxycodone [From Percocet] Allergy (Verified 07/03/16 06:16) Hives tramadol Adverse Reaction (Verified 10/12/16 16:44) See Comments per half-way list Procedures/tests Complete & Pending: Procedures Performed prior 72 hours Category Date Time Status EV echocardiogram Routine Y 10/13/16 09:31 Completed Date of admission: 10/12/16 12:30 Primary care physician: Renard Spears DO Consults: 10/12/16 13:10 Consult to Utility Manager [CONS] Routine Reason for SW Consult: Discharge back to half-way 10/13/16 12:14 Consult to Cardiology [CONS] Routine Comment: Consulting Provider: Cardiology Justin Reason for Consult: cp abnormal ekg Call Completed: Yes 10/14/16 09:51 Consult to Occupational Therapy [CONS] Routine Comment: Evaluate, develop and implement POC Reason for Consult: Evaluate and plan for ECF needs. Consult to Physical Therapy [CONS] Routine Comment: Evaluate, develop and implement POC Reason for Consult: Evaluate and plan for ECF needs Discharging clinician: Luis Ziegler Anticipated date of discharge: 10/14/16 - Patient Status Disposition: Transfer SNF Condition: Fair Overall status at discharge: patient is progressing back to baseline - Discharge Instructions Instructions: Fluconazole (By mouth), Urinary Tract Infection in Women (DC) Follow Up With: Renard Spears DO [Primary Care Provider] - (patient will follow up with pcp at ecf) Additional Instructions: Please follow up with your primary care physician upon discharge. Continue take your medication until prescription is complete. - Diet and Activity Activity: as per physical therapy Diet: advance to your usual diet Hospital course: Ms. Renee is a 60 year old female who is in her [facility] with a chief complaint of chest pain and lower epigastric pain 1 day. Past medical history of asthma, COPD, hyperlipidemia, hypertension. She also reports having recent back surgery approximately one month ago. She has recently been bedbound secondary to the surgery. He reports trying physical therapy what we will was unable to complete secondary to pain. She is also complaining of nausea and vomiting at this time, as well as dysuria. She denies fever, chills, cough, stress breath, diarrhea. Upon presentation to emergency department patient was noted to be tachycardic with her heart rate of 110, with a blood pressure 86/58. Labs are significant for macrocytic anemia with an H&H of 10.5/34.2. Elevated bicarbonate of 31. Actiq acid was 1.6. Prominent was 0.01. EKG did not range of motion sinus rhythm with T-wave inversions in V2, V3 and flattening of T waves in V4 and V6. CT pelvis scan came back negative osteomyelitis. Chest x-ray was negative for any acute process. Urinalysis was significant for urinary tract infection, patient was also noted to be confused on presentation demonstrates that her was present at bedside denies. Physical exam also revealed sacral and lumbar decubitus ulcers stage II. She was started on 1 g of Rocephin admitted to medicine service with diagnosis of acute encephalopathy, urinary tract infection , decubitus ulcers, chest pain. During course hospital stay, patient's urine culture came back positive for Ashli albicans. She was started on fluconazole 100 mg. Cardiology was consulted for the chest pain, troponins were negative 4, echocardiogram revealed an ejection fraction of 55% with indeterminate left ventricular diastolic dysfunction. The etiology of chest pain is GI in nature as it is associated with meals. Her tachycardia resolved and was likely secondary to infection. On day of discharge, patient reports that her confusion is gone when she was alert and oriented 3, she denies any symptoms of weakness, fevers , chills, shortness of breath, chest pain. She does admit to monitored amount of back pain. Patient will be discharged to extended care facility pending social work placement in stable medical condition after being evaluated by physical therapy and occupational therapy. - Time Spent with Patient Total time spent providing and/or coordinating discharge services:30 min Greater than 30 minutes - Constitutional Vitals: Temp Pulse Resp BP Pulse Ox 98.9 F 85 18 135/73 92 10/14/16 07:41 10/14/16 07:41 10/14/16 07:41 10/14/16 07:41 10/14/16 07:41 General appearance: Present: A&O X 3, answers questions appropriately (Problems with memory and intermittent confusion) Exam: Gen.: Vitals noted. No acute distress. AAOx3 HEENT: PERRL/EOMI, oropharynx clear, Normocephalic, atraumatic Neck: Supple. No adenopathy. Cardiac: RRR, no murmur, +S1/S2 Pulmonary: Mild wheezing diffusely. no rales or rhonchi, equal chest expansion Abdomen: soft, nontender, BS noted, no guarding Back: Nontender throughout. Stage II sacral ulcer MSK: unable to assess ROM, strength 2/2 effort, back pain. no joint swelling noted Extremities: no BLE edema, nontender calf, no cyanosis or clubbing Neuro: A&Ox3, moves all extremities, no focal deficits Psych: Appropriate mood and behavior <Pablo Garcia - Last Filed: 10/14/16 15:41> Date of Encounter: 10/14/16 - Discharge Diagnosis (1) UTI (urinary tract infection) Status: Acute Qualifiers: Urinary tract infection type: acute cystitis Hematuria presence: without hematuria Qualified Code(s): N30.00 - Acute cystitis without hematuria (2) Abnormal EKG Status: Acute (3) Acute encephalopathy Status: Resolved (4) Volume overload Status: Acute Qualifiers: Hypervolemia type: unspecified Qualified Code(s): E87.70 - Fluid overload, unspecified (5) Weakness generalized Status: Chronic (6) Neuroforaminal stenosis of lumbar spine Status: Chronic (7) COPD (chronic obstructive pulmonary disease) Status: Chronic Qualifiers: COPD type: emphysema Emphysema type: unspecified Qualified Code(s): J43.9 - Emphysema, unspecified (8) Tobacco abuse Status: Chronic (9) Decubitus skin ulcer Status: Chronic Qualifiers: Pressure ulcer location: sacral region Pressure ulcer stage: stage 2 Qualified Code(s): L89.152 - Pressure ulcer of sacral region, stage 2 Procedures/tests Complete & Pending: Procedures Performed prior 72 hours Category Date Time Status EV echocardiogram Routine Y 10/13/16 09:31 Completed Date of admission: 10/12/16 12:30 Primary care physician: Renard Spears DO Consults: 10/12/16 13:10 Consult to Utility Manager [CONS] Routine Reason for SW Consult: Discharge back to half-way 10/13/16 12:14 Consult to Cardiology [CONS] Routine Comment: Consulting Provider: Cardiology Alysa Reason for Consult: cp abnormal ekg Call Completed: Yes 10/14/16 09:51 Consult to Occupational Therapy [CONS] Routine Comment: Evaluate, develop and implement POC Reason for Consult: Evaluate and plan for ECF needs. Consult to Physical Therapy [CONS] Routine Comment: Evaluate, develop and implement POC Reason for Consult: Evaluate and plan for ECF needs Hospital course: Ms. Renee is a 60 year old female - Time Spent with Patient Total time spent providing and/or coordinating discharge services: - Constitutional Vitals: Temp Pulse Resp BP Pulse Ox 98.4 F 89 18 96/67 92 10/14/16 13:00 10/14/16 13:00 10/14/16 13:00 10/14/16 13:00 10/14/16 13:00 - Attending Attestation Ashli UTI complete 2 weeks total of fluconazole time pent on this discharge 40 min I examined this patient and my medical decision-making was reviewed with the Resident Physician. I agree with the documented findings, disposition and treatment plan as described except to the extent set forth below.
--- NOTE | 2016-10-14 10:30 | Physician Discharge Referral ---
<Luis Ziegler - Last Filed: 10/14/16 10:28> ExtendedCare Referral Info Transfer To: [place] Provider in Charge after Transfer: PCP Institutional Level of Care: Skilled - Diagnosis (1) Weakness generalized Priority: Primary Status: Chronic (2) Chest pain Priority: Primary Status: Resolved (3) Decubitus skin ulcer Priority: Primary Status: Chronic (4) UTI (urinary tract infection) Priority: Primary Status: Acute (5) COPD (chronic obstructive pulmonary disease) Priority: Secondary Status: Chronic (6) Acute encephalopathy Priority: Primary Status: Resolved Prognosis: Fair Aware of Diagnosis: Patient, Family Aware of Prognosis: Patient, Family - Transfer Medications Prescriptions: Fluconazole [Diflucan] 100 mg PO DAILY #13 tab Home Medications: Albuterol Sulfate [Ventolin Hfa] 2 puff IH Q4H PRN 07/03/16 [History] Fluticasone/Salmeterol [Advair 500-50 Diskus] 1 each IH BID 07/03/16 [History] Gabapentin [Neurontin] 300 mg PO HS 07/03/16 [History] HYDROcodone/Acet 10/325 mg [[place] 10-325 mg] 2 tab PO Q4H 07/03/16 [History] Ipratropium/Albuterol Neb [Duoneb] 3 ml IH QID PRN 07/03/16 [History] Allopurinol [Zyloprim 100 MG] 200 mg PO DAILY tablet 08/31/16 [Rx] Cyclobenzaprine [Flexeril] 10 mg PO Q8H 10/12/16 [History] Docusate [Colace] 100 mg PO BID 10/12/16 [History] Furosemide [Lasix] 40 mg PO DAILY 10/12/16 [History] HYDROcodone/Acet 10/325 mg [[place] 10-325 mg] 2 tab PO Q4HR PRN 10/12/16 [History ] Metoprolol XL (24 HR) Succ [Toprol Xl] 12.5 mg PO DAILY 10/12/16 [History] Nystatin POWDER [Nystop] 1 appl TP DAILY PRN 10/12/16 [History] Polyethylene Glycol 3350 [Gavilax] 17 gm PO DAILY 10/12/16 [History] Potassium Chloride [K-Tab ER] 20 meq PO DAILY 10/12/16 [History] Fluconazole [Diflucan] 100 mg PO DAILY #13 tab 10/14/16 [Rx] Allergies/Adverse Reactions: Allergies meloxicam [From Mobic] Allergy (Verified 07/03/16 06:16) Hives Oxycodone [From Percocet] Allergy (Verified 07/03/16 06:16) Hives tramadol Adverse Reaction (Verified 10/12/16 16:44) See Comments per detention list - Respiratory Orders Smoking Cessation: Smoking cessation has been advised. For more information, call the [employer] Tobacco Quit Line at 7-033-PYNXNOW. - Advance Directives Code Status: Full Code - Mobility Orders Other (Per physical therapy) - Rehabiliation Orders Rehab Potential: Fair Rehab Orders: Evaluation for Physical Therapy, Evaluation for Occupational Therapy - Treatments List/Other: Decubitus ulcer, beds turns. Monitoring. - Diet Orders Regular CERTIFICATION: I certify that the transfer of the above named patient to an Extended Care Facility is necessary for the continuing treatment of the diagnosis listed. The above information is true and accurate reflection of patient's current condition. Confidential - Redisclosure prohibited without a patient's written consent. <Pablo Garcia Gene - Last Filed: 10/14/16 15:41> - Diagnosis (1) UTI (urinary tract infection) Status: Acute (2) Abnormal EKG Status: Acute (3) Acute encephalopathy Status: Resolved (4) Volume overload Status: Acute (5) Weakness generalized Status: Chronic (6) Neuroforaminal stenosis of lumbar spine Status: Chronic (7) COPD (chronic obstructive pulmonary disease) Status: Chronic (8) Tobacco abuse Status: Chronic (9) Decubitus skin ulcer Status: Chronic - Respiratory Orders Smoking Cessation: Smoking cessation has been advised. For more information, call the [employer] Tobacco Quit Line at 9-215-NRSMNOW. CERTIFICATION: I certify that the transfer of the above named patient to an Extended Care Facility is necessary for the continuing treatment of the diagnosis listed. The above information is true and accurate reflection of patient's current condition. Confidential - Redisclosure prohibited without a patient's written consent. I examined this patient and my medical decision-making was reviewed with the Resident Physician. I agree with the documented findings, disposition and treatment plan as described except to the extent set forth below.
--- NOTE | 2016-10-14 10:40 | Event Note ---
Date of Encounter: 10/14/16 Time of Encounter: 10:30 - Cardiology Event Note Echocardiogram shows preserved LVEF with normal wall motion. TSH normal. HR stable upon exam. Of note, HgB continues to downtrend; H/H has been normal in the past. Atypical chest pain, equovical ECG changes, troponin negative. Recommend supportive care/treatment of UTI and decub. ulcers. No further testing recommended. Discussed and reviewed with Dr. Carlisle who agrees with plan.
[2016-10-14] MEDS: *HR* HYDROcodone/Acet 10/325 mg TABLET PO PRN ×2 (10:57→19:46)
--- NOTE | 2016-10-14 13:51 | Internal Med Progress Note ---
<Luis Ziegler - Last Filed: 10/14/16 13:47> Date of Encounter: 10/14/16 Time of Encounter: 09:00 - Assessment and plan (1) UTI (urinary tract infection) Current Visit: Yes Status: Acute Assessment and plan: Acute metabolic encephalopathy likely secondary to UTI [place] culture showed Ashli. No evidence of bacteria Discontinued Rocephin, day 2 of fluconazole. Fall precautions Qualifiers: Urinary tract infection type: acute cystitis Hematuria presence: without hematuria Qualified Code(s): N30.00 - Acute cystitis without hematuria (2) Weakness generalized Current Visit: Yes Status: Chronic Assessment and plan: Generalized weakness secondary to urinary tract infection versus decubitus ulcer versus chronic back pain status post surgery - PT/OT evaluation ordered for this afternoon - Day 2 of fluconazole 100 mg, discontinue Rocephin. Culture positive for yeast only. (3) Chest pain Current Visit: Yes Status: Resolved Assessment and plan: - Possibly GI in nature association with oral intake - Troponins were negative 4, echocardiogram showed an EF of 55% with indeterminate left ventricular diastolic dysfunction - Resolved Qualifiers: Chest pain type: other chest pain Qualified Code(s): R07.89 - Other chest pain; R07.8 - Other chest pain (4) Decubitus skin ulcer Current Visit: Yes Status: Chronic Assessment and plan: - Stage II sacral decubitus ulcer secondary to bedridden status secondary to recent back surgery - Nursing orders for frequent turns his tolerated Qualifiers: Pressure ulcer location: sacral region Pressure ulcer stage: stage 2 Qualified Code(s): L89.152 - Pressure ulcer of sacral region, stage 2 (5) COPD (chronic obstructive pulmonary disease) Current Visit: Yes Status: Chronic Assessment and plan: Running, no questions shortness of breath. Stable Qualifiers: COPD type: emphysema Emphysema type: unspecified Qualified Code(s): J43.9 - Emphysema, unspecified (6) Acute encephalopathy Current Visit: Yes Status: Resolved Assessment and plan: - Likely secondary to urinary tract infection - Continue fluconazole as above for urinary tract infection - Back at baseline per her . Resolved - Time Spent With Patient 25 - 35 minutes - Subjective Interval history: Ms. Renee was seen and examined at bedside this morning. States she is experiencing no symptoms of chest pain, shortness breath, fevers, chills. Her only complaint this morning this pain in her lower back. She states her breathing is much improved and her dysuria is improved as well. - Constitutional Vitals: Temp Pulse Resp BP Pulse Ox 98.4 F 89 18 96/67 92 10/14/16 11:19 10/14/16 11:19 10/14/16 11:19 10/14/16 11:19 10/14/16 11:19 General appearance: Present: A&O X 3, answers questions appropriately (Problems with memory and intermittent confusion) Exam: Gen.: Vitals noted. No acute distress. AAOx3. Morbidly obese HEENT: PERRL/EOMI, oropharynx clear, Normocephalic, atraumatic Neck: Supple. No adenopathy. Cardiac: RRR, no murmur, +S1/S2 Pulmonary: Mild wheezing diffusely. no rales or rhonchi, equal chest expansion Abdomen: soft, nontender, BS noted, no guarding Back: Nontender throughout. Stage II sacral ulcer MSK: Unable to assess ROM, no joint swelling noted Extremities: no BLE edema, nontender calf, no cyanosis or clubbing Neuro: A&Ox3, moves all extremities, no focal deficits Psych: Appropriate mood and behavior Internal Medicine: Result - Labs CBC & Chem 7: 10/14/16 06:06 10/14/16 06:06 Labs: Short CBC 10/14/16 Range/Units 06:06 WBC 6.1 (4.3-11.1) K/mcL Hgb 9.1 L (11.5-15.4) g/dL Hct 28.9 L (35.3-44.9) % Plt Count 185 (140-400) K/mcL [facility] [place]/14[place]16 06:06 Sodium 138 Potassium 3.6 Chloride 103 Carbon Dioxide 28 BUN 11 Creatinine 0.62 Glucose 75 Calcium 8.2 L Consult Discharge Plan - Plan Instructions: Fluconazole (By mouth), Urinary Tract Infection in Women (DC) Additional Instructions: Please follow up with your primary care physician upon discharge. Continue take your medication until prescription is complete. Referrals: Renard Spears DO [Primary Care Provider] - (patient will follow up with pcp at [facility]) Prescriptions: Fluconazole [Diflucan] 100 mg PO DAILY #13 tab <Pablo Garcia H - Last Filed: 10/14/16 13:59> Date of Encounter: 10/14/16 - Assessment and plan (1) UTI (urinary tract infection) Current Visit: Yes Status: Acute Qualifiers: Urinary tract infection type: acute cystitis Hematuria presence: without hematuria Qualified Code(s): N30.00 - Acute cystitis without hematuria (2) Abnormal EKG Current Visit: Yes Status: Acute (3) Acute encephalopathy Current Visit: Yes Status: Resolved (4) Volume overload Current Visit: Yes Status: Acute Qualifiers: Hypervolemia type: unspecified Qualified Code(s): E87.70 - Fluid overload, unspecified (5) Weakness generalized Current Visit: Yes Status: Chronic (6) Neuroforaminal stenosis of lumbar spine Current Visit: No Status: Chronic (7) COPD (chronic obstructive pulmonary disease) Current Visit: Yes Status: Chronic Qualifiers: COPD type: emphysema Emphysema type: unspecified Qualified Code(s): J43.9 - Emphysema, unspecified (8) Tobacco abuse Current Visit: Yes Status: Chronic (9) Decubitus skin ulcer Current Visit: Yes Status: Chronic Qualifiers: Pressure ulcer location: sacral region Pressure ulcer stage: stage 2 Qualified Code(s): L89.152 - Pressure ulcer of sacral region, stage 2 - Constitutional Vitals: Temp Pulse Resp BP Pulse Ox 98.4 F 89 18 96/67 92 10/14/16 13:00 10/14/16 13:00 10/14/16 13:00 10/14/16 13:00 10/14/16 13:00 Internal Medicine: Result - Labs CBC & Chem 7: 10/14/16 06:06 10/14/16 06:06 Labs: Short CBC 10/14/16 Range/Units 06:06 WBC 6.1 (4.3-11.1) K/mcL Hgb 9.1 L (11.5-15.4) g/dL Hct 28.9 L (35.3-44.9) % Plt Count 185 (140-400) K/mcL [facility] 10/14/16 06:06 Sodium 138 Potassium 3.6 Chloride 103 Carbon Dioxide 28 BUN 11 Creatinine 0.62 Glucose 75 Calcium 8.2 L - Attending Attestation continue fluconazole. Discharge in the morning if stable. I examined this patient and my medical decision-making was reviewed with the Resident Physician. I agree with the documented findings, disposition and treatment plan as described except to the extent set forth below.
[2016-10-15] MEDS: *HR* Enoxaparin 40 MG/0.4 ML SYRINGE SQ SCH (06:00)
[2016-10-15] MEDS: *HR* HYDROcodone/Acet 10/325 mg TABLET PO PRN ×3 (06:01→18:30)
[2016-10-15] MEDS: Magnesium Oxide 400 MG TABLET PO SCH ×2 (09:51→22:31)
[2016-10-15] MEDS: Fluconazole 100 MG TABLET PO SCH (09:52)
[2016-10-15] MEDS: Nicotine 21 MG PATCH.TD24 TD SCH (09:56)
[2016-10-15] MEDS: Budesonide/Formoterol 160/4.5 MDI IH SCH ×2 (11:23→22:16)
[2016-10-15] MEDS: Furosemide 40 MG/4 ML VIAL IVP SCH (11:33)
--- NOTE | 2016-10-15 15:28 | Event Note ---
Date of Encounter: 10/15/16 Time of Encounter: 15:28 Patient Name: Mary Renee Date of : 1955 Patient Status: Observation Attending Provider: Pablo Garcia Date: 10/14/16 10:02 Initialization Date: 10/14/16 10:02 Addendum entered and electronically signed by Pablo Garcia MD 15:27: This note will be used as a discharge summary for 10/15/2016. No change in the plan. The patient is awaiting placement, was not discharged yesterday for that reason. Original Note: <Luis Ziegler - Last Filed: 10/14/16 15:39> Date of Encounter: 10/14/16 Time of Encounter: 10:02 - Discharge Diagnosis (1) Weakness generalized Priority: Primary Status: Chronic Comments: Likely secondary to UTI, decubitus ulcers, increased cardiac demand 2/2 tachycardia (2) Chest pain Priority: Primary Status: Resolved Comments: Possibly due to GI causes vs cardiac Qualifiers: Chest pain type: other chest pain Qualified Code(s): R07.89 - Other chest pain; R07.8 - Other chest pain (3) Decubitus skin ulcer Priority: Primary Status: Chronic Qualifiers: Pressure ulcer location: sacral region Pressure ulcer stage: stage 2 Qualified Code(s): L89.152 - Pressure ulcer of sacral region, stage 2 (4) UTI (urinary tract infection) Priority: Primary Status: Acute Qualifiers: Urinary tract infection type: acute cystitis Hematuria presence: without hematuria Qualified Code(s): N30.00 - Acute cystitis without hematuria (5) COPD (chronic obstructive pulmonary disease) Priority: Secondary Status: Chronic Qualifiers: COPD type: emphysema Emphysema type: unspecified Qualified Code(s): J43.9 - Emphysema, unspecified (6) Acute encephalopathy Priority: Primary Status: Resolved Comments: Likely secondary to infection vs cardiac - Discharge Medications Prescriptions: Fluconazole [Diflucan] 100 mg PO DAILY #13 tab Home Medications: Albuterol Sulfate [Ventolin Hfa] 2 puff IH Q4H PRN 07/03/16 [History] Fluticasone/Salmeterol [Advair 500-50 Diskus] 1 each IH BID 07/03/16 [History] Gabapentin [Neurontin] 300 mg PO HS 07/03/16 [History] HYDROcodone/Acet 10/325 mg [[place] 10-325 mg] 2 tab PO Q4H 07/03/16 [History] Ipratropium/Albuterol Neb [Duoneb] 3 ml IH QID PRN 07/03/16 [History] Allopurinol [Zyloprim 100 MG] 200 mg PO DAILY tablet 08/31/16 [Rx] Cyclobenzaprine [Flexeril] 10 mg PO Q8H 10/12/16 [History] Docusate [Colace] 100 mg PO BID 10/12/16 [History] Furosemide [Lasix] 40 mg PO DAILY 10/12/16 [History] HYDROcodone/Acet 10/325 mg [[place] 10-325 mg] 2 tab PO Q4HR PRN 10/12/16 [History ] Metoprolol XL (24 HR) Succ [Toprol Xl] 12.5 mg PO DAILY 10/12/16 [History] Nystatin POWDER [Nystop] 1 appl TP DAILY PRN 10/12/16 [History] Polyethylene Glycol 3350 [Gavilax] 17 gm PO DAILY 10/12/16 [History] Potassium Chloride [K-Tab ER] 20 meq PO DAILY 10/12/16 [History] Fluconazole [Diflucan] 100 mg PO DAILY #13 tab 10/14/16 [Rx] Allergies/Adverse Reactions: Allergies meloxicam [From Mobic] Allergy (Verified 07/03/16 06:16) Hives Oxycodone [From Percocet] Allergy (Verified 07/03/16 06:16) Hives tramadol Adverse Reaction (Verified 10/12/16 16:44) See Comments per intermediate list Procedures/tests Complete & Pending: Procedures Performed prior 72 hours Category Date Time Status EV echocardiogram Routine Y 10/13/16 09:31 Completed Date of admission: 10/12/16 12:30 Primary care physician: Renard Spears DO Consults: 10/12/16 13:10 Consult to Business Technology Teacher [CONS] Routine Reason for SW Consult: Discharge back to intermediate 10/13/16 12:14 Consult to Cardiology [CONS] Routine Comment: Consulting Provider: Cardiology [place] Reason for Consult: cp abnormal ekg Call Completed: Yes 10/14/16 09:51 Consult to Occupational Therapy [CONS] Routine Comment: Evaluate, develop and implement POC Reason for Consult: Evaluate and plan for ECF needs. Consult to Physical Therapy [CONS] Routine Comment: Evaluate, develop and implement POC Reason for Consult: Evaluate and plan for ECF needs Discharging clinician: Luis Ziegler Anticipated date of discharge: 10/14/16 - Patient Status Disposition: Transfer SNF Condition: Fair Overall status at discharge: patient is progressing back to baseline - Discharge Instructions Instructions: Fluconazole (By mouth), Urinary Tract Infection in Women (DC) Follow Up With: Renard Spears DO [Primary Care Provider] - (patient will follow up with pcp at [facility]) Additional Instructions: Please follow up with your primary care physician upon discharge. Continue take your medication until prescription is complete. - Diet and Activity Activity: as per physical therapy Diet: advance to your usual diet Hospital course: Ms. Renee is a 60 year old female who is in [facility] with a chief complaint of chest pain and lower epigastric pain 1 day. Past medical history of asthma, COPD, hyperlipidemia, hypertension. She also reports having recent back surgery approximately one month ago. She has recently been bedbound secondary to the surgery. He reports trying physical therapy what we will was unable to complete secondary to pain. She is also complaining of nausea and vomiting at this time, as well as dysuria. She denies fever, chills, cough, stress breath, diarrhea. Upon presentation to emergency department patient was noted to be tachycardic with her heart rate of 110, with a blood pressure 86/58. Labs are significant for macrocytic anemia with an H&H of 10.5/34.2. Elevated bicarbonate of 31. Actiq acid was 1.6. Prominent was 0.01. EKG did not range of motion sinus rhythm with T-wave inversions in V2, V3 and flattening of T waves in V4 and V6. CT pelvis scan came back negative osteomyelitis. Chest x-ray was negative for any acute process. Urinalysis was significant for urinary tract infection, patient was also noted to be confused on presentation demonstrates that her was present at bedside denies. Physical exam also revealed sacral and lumbar decubitus ulcers stage II. She was started on 1 g of Rocephin admitted to medicine service with diagnosis of acute encephalopathy, urinary tract infection , decubitus ulcers, chest pain. During course hospital stay, patient's urine culture came back positive for Ashli albicans. She was started on fluconazole 100 mg. Cardiology was consulted for the chest pain, troponins were negative 4, echocardiogram revealed an ejection fraction of 55% with indeterminate left ventricular diastolic dysfunction. The etiology of chest pain is GI in nature as it is associated with meals. Her tachycardia resolved and was likely secondary to infection. On day of discharge, patient reports that her confusion is gone when she was alert and oriented 3, she denies any symptoms of weakness, fevers , chills, shortness of breath, chest pain. She does admit to monitored amount of back pain. Patient will be discharged to extended care facility pending social work placement in stable medical condition after being evaluated by physical therapy and occupational therapy. - Time Spent with Patient Total time spent providing and/or coordinating discharge services:30 min Greater than 30 minutes - Constitutional Vitals: Temp Pulse Resp BP Pulse Ox 98.9 F 85 18 135/73 92 10/14/16 07:41 10/14/16 07:41 10/14/16 07:41 10/14/16 07:41 10/14/16 07:41 General appearance: Present: A&O X 3, answers questions appropriately (Problems with memory and intermittent confusion) Exam: Gen.: Vitals noted. No acute distress. AAOx3 HEENT: PERRL/EOMI, oropharynx clear, Normocephalic, atraumatic Neck: Supple. No adenopathy. Cardiac: RRR, no murmur, +S1/S2 Pulmonary: Mild wheezing diffusely. no rales or rhonchi, equal chest expansion Abdomen: soft, nontender, BS noted, no guarding Back: Nontender throughout. Stage II sacral ulcer MSK: unable to assess ROM, strength 2/2 effort, back pain. no joint swelling noted Extremities: no BLE edema, nontender calf, no cyanosis or clubbing Neuro: A&Ox3, moves all extremities, no focal deficits Psych: Appropriate mood and behavior <Pablo Garcia - Last Filed: 10/14/16 15:41> Date of Encounter: 10/14/16 - Discharge Diagnosis (1) UTI (urinary tract infection) Status: Acute Qualifiers: Urinary tract infection type: acute cystitis Hematuria presence: without hematuria Qualified Code(s): N30.00 - Acute cystitis without hematuria (2) Abnormal EKG Status: Acute (3) Acute encephalopathy Status: Resolved (4) Volume overload Status: Acute Qualifiers: Hypervolemia type: unspecified Qualified Code(s): E87.70 - Fluid overload, unspecified (5) Weakness generalized Status: Chronic (6) Neuroforaminal stenosis of lumbar spine Status: Chronic (7) COPD (chronic obstructive pulmonary disease) Status: Chronic Qualifiers: COPD type: emphysema Emphysema type: unspecified Qualified Code(s): J43.9 - Emphysema, unspecified (8) Tobacco abuse Status: Chronic (9) Decubitus skin ulcer Status: Chronic Qualifiers: Pressure ulcer location: sacral region Pressure ulcer stage: stage 2 Qualified Code(s): L89.152 - Pressure ulcer of sacral region, stage 2 Procedures/tests Complete & Pending: Procedures Performed prior 72 hours Category Date Time Status EV echocardiogram Routine Y 10/13/16 09:31 Completed Date of admission: 10/12/16 12:30 Primary care physician: Renard Spears DO Consults: 10/12/16 13:10 Consult to Business Technology Teacher [CONS] Routine Reason for SW Consult: Discharge back to intermediate 10/13/16 12:14 Consult to Cardiology [CONS] Routine Comment: Consulting Provider: Cardiology [place] Reason for Consult: cp abnormal ekg Call Completed: Yes 10/14/16 09:51 Consult to Occupational Therapy [CONS] Routine Comment: Evaluate, develop and implement POC Reason for Consult: Evaluate and plan for ECF needs. Consult to Physical Therapy [CONS] Routine Comment: Evaluate, develop and implement POC Reason for Consult: Evaluate and plan for ECF needs Hospital course: Ms. Renee is a 60 year old female - Time Spent with Patient Total time spent providing and/or coordinating discharge services: - Constitutional Vitals: Temp Pulse Resp BP Pulse Ox 98.4 F 89 18 96/67 92 10/14/16 13:00 10/14/16 13:00 10/14/16 13:00 10/14/16 13:00 10/14/16 13:00 - Attending Attestation Ashli UTI complete 2 weeks total of fluconazole time pent on this discharge 40 min I examined this patient and my medical decision-making was reviewed with the Resident Physician. I agree with the documented findings, disposition and treatment plan as described except to the extent set forth below.
[2016-10-16] MEDS: *HR* Enoxaparin 40 MG/0.4 ML SYRINGE SQ SCH (06:32)
[2016-10-16] MEDS: *HR* HYDROcodone/Acet 10/325 mg TABLET PO PRN (06:37)
[2016-10-16] MEDS: Budesonide/Formoterol 160/4.5 MDI IH SCH (08:01)
[2016-10-16 09:39] LABS: Hematocrit 32.3 % (35.3-44.9); Hemoglobin 10.2 g/dL (11.5-15.4); Mean Corpuscular HGB Conc 31.6 g/dL (31.6-35.5); Mean Corpuscular Hemoglobin 35.1 pg (28.0-33.3); Mean Platelet Volume 9.7 fL (9.4-12.4); Platelet Count 231 K/mcL (140-400); Red Blood Count 2.91 M/mcL (3.82-4.97); Red Cell Distribution Width 15.9 % (11.5-14.5)
[2016-10-16] MEDS: Furosemide 40 MG/4 ML VIAL IVP SCH (09:42)
[2016-10-16 09:55] LABS: BUN/Creatinine Ratio 17 (6-26); Blood Urea Nitrogen 11 mg/dL (7-20); Calcium 8.4 mg/dL (8.6-10.8); Carbon Dioxide 32 mEq/L (19-29); Chloride 100 mEq/L (98-109); Glucose 92 mg/dL (70-99); Magnesium 1.9 mg/dL (1.6-2.6); Osmolality,Calculated 287 (280-300); Potassium 3.6 mEq/L (3.5-4.5); Sodium 139 mEq/L (136-145); eGFR For African Americans > 60 (> 60); eGFR For Non-African Americans > 60 (> 60)
[2016-10-16 10:58] VITALS: BP 104/72
--- NOTE | 2016-10-16 14:41 | Internal Med Progress Note ---
<Luis Ziegler - Last Filed: 10/16/16 14:39> Date of Encounter: 10/16/16 Time of Encounter: 14:39 - Assessment and plan (1) Weakness generalized Status: Chronic Assessment and plan: Generalized weakness secondary to urinary tract infection versus decubitus ulcer versus chronic back pain status post surgery - PT/OT evaluated and recommended senior living facility upon discharge. - Day 4 of fluconazole 100 mg. Culture positive for yeast only. - Will be discharged to SNF today (2) Chest pain Status: Resolved Assessment and plan: - Resolved - Possibly GI in nature association with oral intake. - Troponins were negative 4, echocardiogram showed an EF of 55% with indeterminate left ventricular diastolic dysfunction Qualifiers: Chest pain type: other chest pain Qualified Code(s): R07.89 - Other chest pain; R07.8 - Other chest pain (3) Decubitus skin ulcer Status: Chronic Assessment and plan: - Stage II sacral decubitus ulcer secondary to bedridden status secondary to recent back surgery - Nursing orders for frequent turns as tolerated Qualifiers: Pressure ulcer location: sacral region Pressure ulcer stage: stage 2 Qualified Code(s): L89.152 - Pressure ulcer of sacral region, stage 2 (4) UTI (urinary tract infection) Status: Acute Assessment and plan: Acute metabolic encephalopathy likely secondary to UTI Urine culture showed Ashli. No evidence of bacteria day 4 of fluconazole.Will be sent to SNF with prescription Fall precautions Qualifiers: Urinary tract infection type: acute cystitis Hematuria presence: without hematuria Qualified Code(s): N30.00 - Acute cystitis without hematuria (5) COPD (chronic obstructive pulmonary disease) Status: Chronic Assessment and plan: Complaining of no shortness of breath. Stable Qualifiers: COPD type: emphysema Emphysema type: unspecified Qualified Code(s): J43.9 - Emphysema, unspecified (6) Acute encephalopathy Status: Resolved Assessment and plan: - Resolved - Likely secondary to urinary tract infection - Continue fluconazole as above for urinary tract infection - Back at baseline per her . - Subjective Interval history: Ms. Renee was seen and examined at bedside this morning. States she is experiencing no symptoms of chest pain, shortness breath, fevers, chills. Her only complaint this morning this pain in her lower back. She states her breathing is much improved and her dysuria is improved as well. - Constitutional Vitals: Temp Pulse Resp BP Pulse Ox 98.5 F 90 18 104/72 87 10/16/16 10:56 10/16/16 10:56 10/16/16 10:56 10/16/16 10:56 10/16/16 10:56 General appearance: Present: A&O X 3, answers questions appropriately (Problems with memory and intermittent confusion) Exam: Gen.: Vitals noted. No acute distress. AAOx3. Morbidly obese HEENT: PERRL/EOMI, oropharynx clear, Normocephalic, atraumatic Neck: Supple. No adenopathy. Cardiac: RRR, no murmur, +S1/S2 Pulmonary: CTA bilaterally, no wheezes, rales or rhonchi, equal chest expansion Abdomen: soft, nontender, BS noted, no guarding Back: Nontender throughout. stage II sacral ulcer present MSK: ROM intact, no joint swelling noted. Grossly 4/5 strength Extremities: no BLE edema, nontender calf, no cyanosis or clubbing Neuro: A&Ox3, moves all extremities, no focal deficits Psych: Appropriate mood and behavior Internal Medicine: Result - Labs CBC & Chem 7: 10/16/16 09:19 10/16/16 09:19 Labs: Short CBC 10/16/16 Range/Units 09:19 WBC 7.0 (4.3-11.1) K/mcL Hgb 10.2 L (11.5-15.4) g/dL Hct 32.3 L (35.3-44.9) % Plt Count 231 (140-400) K/mcL BMP 10/16/16 09:19 Sodium 139 Potassium 3.6 Chloride 100 Carbon Dioxide 32 H BUN 11 Creatinine 0.65 Glucose 92 Calcium 8.4 L Consult Discharge Plan - Plan Instructions: Fluconazole (By mouth), Urinary Tract Infection in Women (DC) Additional Instructions: Please follow up with your primary care physician upon discharge. Continue take your medication until prescription is complete. Referrals: Renard Spears DO [Primary Care Provider] - (patient will follow up with pcp at [facility]) Prescriptions: HYDROcodone/Acet 10/325 mg [[place] 10-325 mg] 1 tab PO Q4HR PRN #20 tab PRN Reason: Pain Fluconazole [Diflucan] 100 mg PO DAILY #13 tab <Pablo Garcia H - Last Filed: 10/16/16 14:45> Date of Encounter: 10/16/16 - Assessment and plan (1) UTI (urinary tract infection) Status: Acute Qualifiers: Urinary tract infection type: acute cystitis Hematuria presence: without hematuria Qualified Code(s): N30.00 - Acute cystitis without hematuria (2) Abnormal EKG Status: Acute (3) Acute encephalopathy Status: Resolved (4) Volume overload Status: Acute Qualifiers: Hypervolemia type: unspecified Qualified Code(s): E87.70 - Fluid overload, unspecified (5) Weakness generalized Status: Chronic (6) Neuroforaminal stenosis of lumbar spine Status: Chronic (7) COPD (chronic obstructive pulmonary disease) Status: Chronic Qualifiers: COPD type: emphysema Emphysema type: unspecified Qualified Code(s): J43.9 - Emphysema, unspecified (8) Tobacco abuse Status: Chronic (9) Decubitus skin ulcer Status: Chronic Qualifiers: Pressure ulcer location: sacral region Pressure ulcer stage: stage 2 Qualified Code(s): L89.152 - Pressure ulcer of sacral region, stage 2 - Constitutional Vitals: Temp Pulse Resp BP Pulse Ox 98.5 F 90 18 104/72 87 10/16/16 10:56 10/16/16 10:56 10/16/16 10:56 10/16/16 10:56 10/16/16 10:56 Internal Medicine: Result - Labs CBC & Chem 7: 10/16/16 09:19 10/16/16 09:19 Labs: Short CBC 10/16/16 Range/Units 09:19 WBC 7.0 (4.3-11.1) K/mcL Hgb 10.2 L (11.5-15.4) g/dL Hct 32.3 L (35.3-44.9) % Plt Count 231 (140-400) K/mcL BMP 10/16/16 09:19 Sodium 139 Potassium 3.6 Chloride 100 Carbon Dioxide 32 H BUN 11 Creatinine 0.65 Glucose 92 Calcium 8.4 L - Attending Attestation discharge today I examined this patient and my medical decision-making was reviewed with the Resident Physician. I agree with the documented findings, disposition and treatment plan as described except to the extent set forth below.
== END 2016-10-16 14:10 ==
LOC: EMEROO 07:46 → 2ANU 07:46 → SUATTDRO 12:30 → 2ANU 12:53
PROVIDERS: ADMIT Internal Medicine; ATTEND Internal Medicine

== ENCOUNTER 2016-12-16 13:42 | Inpatient (IN) ==
[2016-12-16] MEDS ORDERED: Acetaminophen 325 MG TABLET PO PRN (16:14)
[2016-12-16] MEDS ORDERED: *HR* Morphine 2 MG/ML SYRINGE IVP PRN (16:14)
[2016-12-16] MEDS ORDERED: Naloxone 0.4 MG/ML INJ IVP PRN (16:14)
[2016-12-16] MEDS ORDERED: Ondansetron 4 MG/2 ML VIAL IVP PRN (16:14)
[2016-12-16] MEDS ORDERED: 0.9 % Sodium Chloride 500 ML IVC ONE (16:42)
[2016-12-16] MEDS ORDERED: Ipratropium/Albuterol Neb 3 ML IH PRN (16:43)
[2016-12-16] MEDS ORDERED: Pantoprazole 40 MG VIAL IVP ONE (16:43)
[2016-12-16] MEDS ORDERED: *HR* FentaNYL PATCH 12 MCG PATCH TD SCH (16:45)
--- NOTE | 2016-12-16 17:09 | Internal Med History&Physical ---
Date of Encounter: 12/16/16 Time of Encounter: 17:04 Assessment and Plan (1) Hematemesis Current visit: Yes Status: Acute Will admit the pt into Tele Reviewed her labs from [facility] ER Hb at 11.8 No need of blood transfusions Already had NG tube placed in the ER. cont low intermittent suction Started on Protonix gtt.. also gave Protonix 80mg bolus NS bolus 500cc x 2 and Cont maintainence IVF Consulted GI.. will repeat stat Hb now.. If Hb drops down..may go for EGD today, otherwise EGD In AM NPO for now Qualifiers: Qualified Code(s): K92.0 - Hematemesis; R11.0 - Nausea (2) Tachycardia Current visit: No Status: Acute due to dehydration and pain cont aggressive IV hydration cont close monitoring (3) Dehydration Current visit: No Status: Acute on IVF (4) PUD (peptic ulcer disease) Current visit: Yes Status: Acute Depending on her presentation suspecting PUD on PPI (5) Decubitus skin ulcer Current visit: No Status: Chronic Does not look infected will obtain cx from wound also will obtain complete records from SNF .. about this abx will talk to pharmacy also At this point she does not look infected / toxic..will hold of on abx will get blood cx too Qualifiers: Pressure ulcer location: sacral region Pressure ulcer stage: stage 2 Qualified Code(s): L89.152 - Pressure ulcer of sacral region, stage 2 (6) Essential hypertension Current visit: No Status: Chronic holding BP meds due to GI bleed (7) COPD (chronic obstructive pulmonary disease) Current visit: No Status: Chronic stable.. on INH Qualifiers: COPD type: emphysema Emphysema type: unspecified Qualified Code(s): J43.9 - Emphysema, unspecified (8) Obesities, morbid Current visit: Yes Status: Chronic counseled to loose weight (9) UTI (urinary tract infection) Current visit: No Status: Chronic Will get UA now.. If it looks abnormal, will start her on Rocephin Qualifiers: Urinary tract infection type: acute cystitis Hematuria presence: without hematuria Qualified Code(s): N30.00 - Acute cystitis without hematuria Internal Medicine - H&P: HPI Chief complaint: Hematemesis Admitted From: Emergency Dept Plans for Post Hospital Care: Transfer Custodial Facility History of present illness: Ms. Renee is a 61 year old female with known PMH of COPD, Morbid obesity, HTN , HLD, HCornic low back for which she recently had lumbar spine surgery and currently residing at [facility] for short term PT / OT was sent to [facility] ER this morning after pt had multiple episodes of coffee ground colored vomitings. Pt did mention she had this epigastric pain for couple of days, which seems to be progressively worsening. Since last night she started throwing up coffee colored emesis. Denied any CP. Denied SOB. her Abd pain is still 6/10 in severity asking for stronger pain medication She was also started on IV Abx Vancomycin recently for her sacral ulcer as per pt. Past Med Surg Social Fam HX - Past Medical History Medical history: asthma, COPD, hyperlipidemia, hypertension, other Psychiatric history: no psych history - Past Surgical History Surgical History: knee replacement, orthopedic, other, other - Social History Smoking Status: Former smoker Smokeless Tobacco Status: No Alcohol use: none Drug use: none - Family History Mother Living Status: Hx Family Cardiac Disorders: Yes ([place]) Hx Family Respiratory Disorders: Yes (COPD) Hx Family Cancer: No Hx Family GI Disorders: No Hx Family Endocrine Disorder: No Hx Family Neuromuscular Disorders: No Hx Family Neurologic Disorders: No Hx Family HEENT Disorders: No Hx Family Autoimmune Disorders: No Father Hx Family Cardiac Disorders: Yes (CAD) Internal Medicine - H&P: Meds Albuterol Sulfate [Ventolin Hfa] 2 puff IH Q4H PRN 07/03/16 [History] Gabapentin [Neurontin] 300 mg PO HS 07/03/16 [History] Ipratropium/Albuterol Neb [Duoneb] 3 ml IH Q4H PRN 07/03/16 [History] Docusate [Colace] 100 mg PO BID 10/12/16 [History] Nystatin POWDER [Nystop] 1 appl TP DAILY PRN 10/12/16 [History] Polyethylene Glycol 3350 [Gavilax] 17 gm PO DAILY 10/12/16 [History] HYDROcodone/Acet 10/325 mg [[place] 10-325 mg] 1 tab PO Q4HR PRN #20 tab 10/16/16 [Rx] Fluticasone/Salmeterol [Advair 500-50 Diskus] 2 puff IH BID 11/20/16 [History] Folic Acid 1 mg PO DAILY 11/20/16 [History] Multivitamin with Minerals [Myvitalife] 1 each PO DAILY 11/20/16 [History] FentaNYL PATCH [Duragesic] 12 mcg TD Q72H #10 patch.td72 11/22/16 [Rx] Magnesium Oxide [Mag-Ox] 400 mg PO BID tab 11/22/16 [Rx] Amino Acids/Protein Hydrolys [Pro-Stat Awc Liquid Packet] 30 ml PO BID 12/16/16 [History] Guaifenesin [Mucinex] 600 mg PO BID 12/16/16 [History] Lactobacillus [Culturelle] 1 each PO BID 12/16/16 [History] Mag Hydrox/Al Hydrox/Simeth [Antacid Suspension] 15 ml PO Q4H PRN 12/16/16 [ History] Metoprolol [Lopressor] 25 mg PO BID 12/16/16 [History] Mirtazapine 7.5 mg PO DAILY 12/16/16 [History] Ondansetron HCl [Zofran] 4 mg PO Q4H PRN 12/16/16 [History] Ondansetron [Zofran] 4 mg IV Q4H PRN 12/16/16 [History] Sulfamethoxazole/Trimeth DS [Bactrim DS] 1 each PO BID 12/16/16 [History] Vancomycin HCl in Dextrose 5 % [Vancomycin 750 mg/250 ml-D5w] 750 mg IV Q12H [History] 3 Allergy/AdvReac Type Severity Reaction Status Date / Time meloxicam [From Mobic] Allergy Hives Verified 11/20/16 16:10 Oxycodone [From Percocet] Allergy Hives Verified 11/20/16 16:10 tramadol AdvReac See Verified 11/20/16 16:10 Comments All Systems PM: A 10-system review of systems was performed and is negative for pertinent findings except as documented above in the HPI. Review of systems: All the systems are reviewed everything is benign except the systems and symptoms I mentioned in the history of present illness - Constitutional Vitals: Temp Pulse Resp BP Pulse Ox 99.6 F 146 18 107/86 100 12/16/16 15:43 12/16/16 15:11 12/16/16 15:11 12/16/16 15:11 12/16/16 15:11 General appearance: Present: mild distress (with pain), A&O X 3, morbidly obese , answers questions appropriately - Head Head exam: Present: atraumatic, normal inspection - Respiratory Respiratory exam: Present: decreased breath sounds, wheezes (mild). Absent: rales, respiratory distress, rhonchi - Cardiovascular Cardiovascular exam: Present: RRR, +S1, +S2. Absent: diastolic murmur, gallop, rubs, systolic murmur - GI/Abdominal GI/Abdominal exam: Present: distended, normal bowel sounds, soft, tenderness ( moderate tenderness / discomfort in Epigastric region). Absent: guarding, rebound, rigid - Extremities Exam Extremities exam: Absent: calf tenderness, pedal edema, tenderness - Back Exam Additional comments: stage 2 pressure ulcer over sacral region - Neurological Exam Neurological exam: Present: alert, oriented X3 - Psychiatric Psychiatric exam: Present: depressed
[2016-12-16 17:14] LABS: Basophils % 0.1 %; Hematocrit 33.3 % (35.3-44.9); Hemoglobin 11.1 g/dL (11.5-15.4); Immature Granulocytes % 0.7 % (0-4); Lymphocytes # 3.1 K/mcL (0.6-4.6); Lymphocytes % 22.8 %; Mean Corpuscular HGB Conc 33.3 g/dL (31.6-35.5); Mean Corpuscular Hemoglobin 32.4 pg (28.0-33.3); Mean Corpuscular Volume 97.1 fL (83.0-100.0); Mean Platelet Volume 9.1 fL (9.4-12.4); Monocytes % 7.3 %; Neutrophils # 9.5 K/mcL (1.6-8.9); Nucleated Red Blood Cells 0.2 /100 WBC (0); Platelet Count 288 K/mcL (140-400); Red Blood Count 3.43 M/mcL (3.82-4.97); Red Cell Distribution Width 14.4 % (11.5-14.5); Segmented Neutrophils % 69.1 %
[2016-12-16 17:30] LABS: BUN/Creatinine Ratio 24 (6-26); Blood Urea Nitrogen 13 mg/dL (7-20); Calcium 7.3 mg/dL (8.6-10.8); Carbon Dioxide 23 mEq/L (19-29); Chloride 110 mEq/L (98-109); Glucose 88 mg/dL (70-99); Magnesium 1.5 mg/dL (1.6-2.6); Osmolality,Calculated 288 (280-300); Sodium 139 mEq/L (136-145); eGFR For African Americans > 60 (> 60); eGFR For Non-African Americans > 60 (> 60)
[2016-12-16] MEDS: *HR* Promethazine 25 MG/ML VIAL IVP PRN (17:39)
[2016-12-16] MEDS: 0.9 % Sodium Chloride 1,000 ML IVC SCH (17:48)
[2016-12-16] MEDS: *HR* Morphine 2 MG/ML SYRINGE IVP PRN (18:58)
[2016-12-16] MEDS: Pantoprazole 40 MG in 0.9 % Sodium Chloride Mini Bag 100 ML IVC SCH (19:01)
[2016-12-16] MEDS ORDERED: Magnesium Sulfate 2 GM in D5% in Water 100 ML IVPB ONE (19:56)
[2016-12-16] MEDS: *HR* Metoprolol 5 MG/5 ML VIAL IVP SCH (22:20)
[2016-12-16] MEDS: Budesonide/Formoterol 160/4.5 MDI IH SCH (22:34)
[2016-12-17] MEDS: Pantoprazole 40 MG in 0.9 % Sodium Chloride Mini Bag 100 ML IVC SCH ×5 (00:39→22:15)
[2016-12-17] MEDS: *HR* Morphine 2 MG/ML SYRINGE IVP PRN (00:48)
[2016-12-17] MEDS: 0.9 % Sodium Chloride 1,000 ML IVC SCH ×3 (03:57→18:19)
[2016-12-17 04:09] LABS: Basophils % 0.2 %; Eosinophils % 0.1 %; Hematocrit 31.8 % (35.3-44.9); Hemoglobin 10.4 g/dL (11.5-15.4); Immature Granulocytes % 0.6 % (0-4); Lymphocytes # 2.9 K/mcL (0.6-4.6); Mean Corpuscular HGB Conc 32.7 g/dL (31.6-35.5); Mean Corpuscular Hemoglobin 32.4 pg (28.0-33.3); Mean Corpuscular Volume 99.1 fL (83.0-100.0); Mean Platelet Volume 9.1 fL (9.4-12.4); Monocytes % 7.2 %; Neutrophils # 10.2 K/mcL (1.6-8.9); Nucleated Red Blood Cells 0.2 /100 WBC (0); Platelet Count 265 K/mcL (140-400); Red Blood Count 3.21 M/mcL (3.82-4.97); Red Cell Distribution Width 14.6 % (11.5-14.5); Segmented Neutrophils % 71.9 %
[2016-12-17 04:10] LABS: Bilirubin,Urine Small (Negative); Blood,Urine Large (Negative); Clarity,Urine Turbid (Clear); Color,Urine Orange (Yellow); Glucose,Urine (UA) Normal (Normal); Ketones,Urine Trace mg/dL (Negative); Leukocyte Esterase,Urine Small (Negative); Nitrite,Urine Negative (Negative); PH,Urine 5.5 pH Units (5.0-8.0); Protein,Urine 30 mg/dL (Neg-Trace); Specific Gravity,Urine > 1.030 (1.010-1.025); Urobilinogen,Urine Normal (Normal)
[2016-12-17 04:11] LABS: RBC,Urine 15-30 per hpf (0-3); Squamous Epithelial Cell,Urine Few per lpf (None-Few)
[2016-12-17 04:23] LABS: Alanine Aminotransferase 21 Units/L (0-55); Albumin/Globulin Ratio 0.4 (1.1-2.2); Alkaline Phosphatase 118 Units/L (38-126); Aspartate Amino Transferase 26 Units/L (5-34); BUN/Creatinine Ratio 23 (6-26); Bilirubin,Total 0.4 mg/dL (0.2-1.2); Blood Urea Nitrogen 13 mg/dL (7-20); Calcium 7.2 mg/dL (8.6-10.8); Carbon Dioxide 20 mEq/L (19-29); Chloride 112 mEq/L (98-109); Globulin 3.1 g/dL (2.4-3.5); Glucose 94 mg/dL (70-99); Magnesium 1.9 mg/dL (1.6-2.6); Osmolality,Calculated 288 (280-300); Potassium 3.9 mEq/L (3.5-4.5); Sodium 139 mEq/L (136-145); Total Protein 4.4 g/dL (6.0-8.3); eGFR For African Americans > 60 (> 60); eGFR For Non-African Americans > 60 (> 60)
[2016-12-17 04:24] LABS: Albumin 1.3 g/dL (3.5-5.0)
[2016-12-17] MEDS: *HR* Metoprolol 5 MG/5 ML VIAL IVP SCH ×2 (05:30→11:53)
[2016-12-17] MEDS: Budesonide/Formoterol 160/4.5 MDI IH SCH ×2 (08:19→22:42)
--- NOTE | 2016-12-17 08:58 | Internal Med Progress Note ---
<Louis Renee - Last Filed: 12/17/16 16:35> Date of Encounter: 12/17/16 Time of Encounter: 08:25 - Assessment and plan (1) Sepsis Current Visit: Yes Status: Acute Assessment and plan: Patient admitted with hematemesis found to have tachycardia, hypotension, known osteomyelitis of the coccyx with MRSA, pseudomonas, Enterobacter and Klebsiella in the wound cultures. Plan: - Vancomycin, meropenem after reviewing sensitivities - Sepsis protocol including lactic acid, blood cultures, urine cultures, IV fluid rehydration and broad-spectrum antibiotics - We will continue with ICU step down and close monitoring of vitals and blood pressure. Qualifiers: Qualified Code(s): A41.9 - Sepsis, unspecified organism (2) Esophagitis, erosive Current Visit: Yes Status: Acute Assessment and plan: 61-year-old female [facility] admitted with epigastric burning , nausea vomiting and hematemesis. Underwent EGD that identified severe ischemic ulcerative esophagitis. Plan: - Continue PPI drip for 24 hours - Twice a day Carafate - Full liquid diet advance as tolerated - Avoid NSAIDs - Gastroenterology involved appreciate the recommendations. (3) Hematemesis Current Visit: Yes Status: Acute Assessment and plan: 61-year-old female admitted with hematemesis presented with a hemoglobin 11.1 and hematocrit 33.3 with an MCV of 97. She has not had knee hematemesis since admission laboratory results demonstrated hemoglobin of 10.4 hematocrit 31.8 and an MCV of 99.1 this morning after 1 L IV fluids. - Review patient's hemoglobin demonstrates she is about average for her baseline - No hematemesis since admission - Likely secondary to ischemic erosive esophagitis Plan: - Avoid antiplatelet and blood thinners - Treat underlying erosive esophagitis - Monitor H&H with a.m. labs -Keep patient hydrated Qualifiers: Nausea presence: with nausea Qualified Code(s): K92.0 - Hematemesis; R11.0 - Nausea (4) Anemia Current Visit: No Status: Acute Assessment and plan: Chronic normocytic anemia. Admitted for hematemesis without significant change in hemoglobin and hematocrit are MCV. - We will continue to monitor inpatient stay Qualifiers: Anemia type: unspecified type Qualified Code(s): D64.9 - Anemia, unspecified (5) Obesities, morbid Current Visit: Yes Status: Chronic Assessment and plan: Patient has a BMI of 35.0, morbid obesity likely contributing to her multiple comorbid factors. Patient would benefit from weight loss, diet restrictions and lifestyle modifications. (6) Osteomyelitis of coccyx Current Visit: Yes Status: Acute Assessment and plan: Patient has known osteomyelitis of the coccyx/sacrum with MRSA, pseudomonas, Enterobacter, Klebsiella grown and wound cultures from November 25. Patient's home medications included Bactrim DS and vancomycin. - Patient presented with sepsis - Kayla biotics include vancomycin and meropenem (7) DVT prophylaxis Current Visit: Yes Status: Acute Assessment and plan: SCD - Subjective Interval history: Ms. Soler 61-year-old female seen in a patient bedside. She is alert awake oriented interactive. She states that she does have some pain in her lower back and burning in her lower chest below her xiphoid process. She states that the burning has been there since yesterday and she was having some nausea and vomiting and noticed some bleeding or blood in her vomit towards the end of vomiting. She denies any fevers, chills, sweating. She does say that she has a wound on her but that she is taking antibiotics for and is currently in the process of healing. She does have chronic pain from it and continues to have some discomfort. She says that she does feel nauseous but denies any current episodes of vomiting or diarrhea. - Constitutional Vitals: Temp Pulse Resp BP Pulse Ox 98.0 F 127 16 105/84 95 12/17/16 03:37 12/17/16 08:21 12/17/16 08:21 12/17/16 08:21 12/17/16 08:21 General appearance: Present: mild distress (with pain), A&O X 3, morbidly obese , answers questions appropriately Exam: General: Patient alert, awake, oriented 3, interactive, in no acute distress HEENT: Normocephalic, atraumatic, pupils equal reactive to light, nasal cavity patent and open septum median position, oral mucosa moist, uvula midline, neck supple trachea midline no palpable lymphadenopathy, no thyromegaly. Chest: Symmetric bilateral correlating with respiratory effort, effort nonlabored. Cardiac: Regular rate and rhythm, positive S1 and S2. no bruits appreciated bilateral carotids, Radial pulses 2+ bilateral, posterior tibial and dorsal pedal pulses 2+ bilateral. Respiratory: Clear to auscultation all lung love Abdomen: Soft, mild tenderness to the epigastric region, positive bowel sounds, no palpable masses appreciated on examination Extremities: Symmetric bilateral, bilateral lower extremities without erythema or edema patient moving all 4 extremities spontaneously. Skin: Ulcer over the coccyx that has surrounding erythema but diameter of the opening is roughly 1 cm that tunnels towards the coccyx. There is granulated tissue appreciated and no purulent discharge. Neurologic: No focal deficits appreciated on examination. Face symmetric, muscle strength symmetric bilateral upper and lower extremities. Internal Medicine: Result - Labs CBC & Chem 7: 12/17/16 04:00 12/17/16 04:00 Labs: Short CBC 12/16/16 12/17/16 Range/Units 17:02 04:00 WBC 13.7 H 14.2 H (4.3-11.1) K/mcL Hgb 11.1 L 10.4 L (11.5-15.4) g/dL Hct 33.3 L 31.8 L (35.3-44.9) % Plt Count 288 265 (140-400) K/mcL Neutrophils # 9.5 H 10.2 H (1.6-8.9) K/mcL BMP 12/16/16 12/17/16 17:02 04:00 Sodium 139 139 Potassium 4.0 3.9 Chloride 110 H 112 H Carbon Dioxide 23 20 BUN 13 13 Creatinine 0.54 L 0.57 Glucose 88 94 Calcium 7.3 L 7.2 L Cardiac Enzymes 12/16/16 12/16/16 Range/Units 17:02 22:34 Troponin I 0.00 0.00 (0-0.03) ng/mL Liver Function 12/17/16 Range/Units 04:00 Total Bilirubin 0.4 (0.2-1.2) mg/dL AST 26 (5-34) Units/L ALT 21 (0-55) Units/L Alkaline Phosphatase 118 (38-126) Units/L Albumin 1.3 L (3.5-5.0) g/dL Urine 12/16/16 Range/Units 17:02 Urine Color [place] A (Yellow) Urine Clarity Turbid A (Clear) Urine pH 5.5 (5.0-8.0) pH Units Ur Specific [place] > 1.030 H (1.010-1.025) Urine Protein 30 H (Neg-Trace) mg/dL Urine Glucose (UA) Normal (Normal) mg/dL Consult Discharge Plan - Plan Referrals: Renard Spaers DO [Primary Care Provider] - ([facility]CP APPOINTMENT NEEDED) <Robert Cristobal - Last Filed: 12/17/16 17:42> Date of Encounter: 12/17/16 - Constitutional Vitals: Temp Pulse Resp BP Pulse Ox 97.3 F L 129 16 92/68 94 12/17/16 14:31 12/17/16 14:31 12/17/16 14:31 12/17/16 14:31 12/17/16 14:31 Internal Medicine: Result - Labs CBC & Chem 7: 12/17/16 04:00 12/17/16 04:00 Labs: Short CBC 12/17/16 Range/Units 04:00 WBC 14.2 H (4.3-11.1) K/mcL Hgb 10.4 L (11.5-15.4) g/dL Hct 31.8 L (35.3-44.9) % Plt Count 265 (140-400) K/mcL Neutrophils # 10.2 H (1.6-8.9) K/mcL BMP 12/17/16 04:00 Sodium 139 Potassium 3.9 Chloride 112 H Carbon Dioxide 20 BUN 13 Creatinine 0.57 Glucose 94 Calcium 7.2 L Cardiac Enzymes 12/16/16 12/16/16 Range/Units 17:02 22:34 Troponin I 0.00 0.00 (0-0.03) ng/mL Liver Function 12/17/16 12/17/16 Range/Units 04:00 12:39 Total Bilirubin 0.4 0.4 (0.2-1.2) mg/dL Direct Bilirubin 0.3 (0.0-0.5) mg/dL AST 26 19 (5-34) Units/L ALT 21 17 (0-55) Units/L Alkaline Phosphatase 118 99 (38-126) Units/L Albumin 1.3 L 1.1 L (3.5-5.0) g/dL Urine 12/16/16 Range/Units 17:02 Urine Color [place] A (Yellow) Urine Clarity Turbid A (Clear) Urine pH 5.5 (5.0-8.0) pH Units Ur Specific [place] > 1.030 H (1.010-1.025) Urine Protein 30 H (Neg-Trace) mg/dL Urine Glucose (UA) Normal (Normal) mg/dL - ABG Interpretation ABG results: PT/INR, D-dimer PT 17.3 Seconds (9.4-12.1) H 12/17/16 12:39 - Attending Attestation I examined this patient and my medical decision-making was reviewed with the Resident Physician. I agree with the documented findings, disposition and treatment plan as described except to the extent set forth below. The patient's abdomen is mildly distended, soft, nontender with hypoactive bowel sounds. Plan: Continue PPI drip. IV fluids. Follow-up with GI. Continue with IV antibiotics for osteomyelitis. Check ESR and CRP.
[2016-12-17] MEDS ORDERED: *HR* FentaNYL PATCH 12 MCG PATCH TD SCH (09:00)
[2016-12-17] MEDS ORDERED: NON-FORMULARY MEDICATION 1 EACH EACH (Ondansetron Hcl [Zofran] 4 MG) PO PRN (10:00)
[2016-12-17] MEDS ORDERED: 0.9 % Sodium Chloride 500 ML IVC ONE ×2 (10:56→22:37)
[2016-12-17] MEDS ORDERED: Vancomycin 1,250 MG in D5% in Water 250 ML IVPB SCH (11:00)
[2016-12-17] MEDS ORDERED: Piperacillin/Tazobactam 3.375 GM in D5% in Water (Mini-Bag+) 100 ML IVPB SCH ×2 (11:00→12:00)
--- NOTE | 2016-12-17 11:01 | Gastroenterology Consult Note ---
<LarsLeandro gardner - Last Filed: 12/17/16 11:19> Date of Encounter: 12/17/16 Time of Encounter: 10:56 - Assessment and plan (1) Hematemesis Current Visit: Yes Status: Acute Assessment and plan: multiple episodes of coffee ground emesis at assisted. H/H stable at this time. Plan: IV PPI NPO diet now EGD today or tomorrow. will update. Qualifiers: Nausea presence: with nausea Qualified Code(s): K92.0 - Hematemesis; R11.0 - Nausea - Time Spent With Patient Total time spent is greater than 50% in coordination of care (as documented) at patient's floor/unit and/or counseling patient: GI History of Present Illness - Data of Consult Consult date: 12/17/16 Requesting Physician: Robert Cristobal MD - Consult Narrative Reason for consult: hematemesis History of present illness: Ms. Renee is a 61 year old female with PMHx of COPD, morbid obesity, HTN, HLD , low back pain. patient is currently in a assisted for rehab after back surgery. patient was sent from assisted to ER for multiple episodes of coffee ground emesis. she had about four episodes of coffee ground emesis. she admits to chills. she denies fever, chest pain, shortness of breath, hematochezia, melena. patient denies NSAID use, and denies a history of gastric or duodenal ulcers. Past Med Surg Social Fam HX - Past Medical History Medical history: asthma, COPD, hyperlipidemia, hypertension, other Psychiatric history: no psych history - Past Surgical History Surgical History: knee replacement, orthopedic, other, other - Social History Smoking Status: Former smoker Smokeless Tobacco Status: No Alcohol use: none Drug use: none - Family History Mother Living Status: Hx Family Cardiac Disorders: Yes ([place]) Hx Family Respiratory Disorders: Yes (COPD) Hx Family Cancer: No Hx Family GI Disorders: No Hx Family Endocrine Disorder: No Hx Family Neuromuscular Disorders: No Hx Family Neurologic Disorders: No Hx Family HEENT Disorders: No Hx Family Autoimmune Disorders: No Father Hx Family Cardiac Disorders: Yes (CAD) All systems PM: reviewed and no additional remarkable complaints except as stated - Constitutional Vitals: Temp Pulse Resp BP Pulse Ox 98.0 F 127 16 105/84 95 12/17/16 03:37 12/17/16 08:21 12/17/16 08:21 12/17/16 08:21 12/17/16 08:21 - Head Head exam: Present: atraumatic, normocephalic Additional comments: NG tube in place - Neck Neck exam general surgery: Present: supple, trachea midline - Respiratory Respiratory exam: Present: decreased breath sounds, wheezes - Cardiovascular Cardiovascular exam: Present: RRR, +S1, +S2 - GI/Abdominal GI/Abdominal exam: Present: distended, normal bowel sounds, soft, tenderness ( mild epigastric tenderness present. ) - Neurological Exam Neurological exam: Present: alert, oriented X3, no focal deficits - Skin Additional comments: bruising present in bilateral upper extremities. Results - Labs CBC & Chem 7: 12/17/16 04:00 12/17/16 04:00 Labs: Last Result Calcium 7.2 mg/dL (8.6-10.8) L 12/17/16 04:00 Troponin I 0.00 ng/mL (0-0.03) 12/16/16 22:34 Entire Visit Hgb 10.4 g/dL (11.5-15.4) L 12/17/16 04:00 Hct 31.8 % (35.3-44.9) L 12/17/16 04:00 Total Bilirubin 0.4 mg/dL (0.2-1.2) 12/17/16 04:00 AST 26 Units/L (5-34) 12/17/16 04:00 ALT 21 Units/L (0-55) 12/17/16 04:00 Consult Discharge Plan - Plan Referrals: Renard Spears DO [Primary Care Provider] - (PATIENT IS FROM [facility] NO PCP APPOINTMENT NEEDED) <Faisal Lopez - Last Filed: 12/17/16 18:46> Date of Encounter: 12/17/16 Time of Encounter: 14:30 - Time Spent With Patient Total time spent is greater than 50% in coordination of care (as documented) at patient's floor/unit and/or counseling patient: GI History of Present Illness - Data of Consult Requesting Physician: Robert Cristobal MD - Consult Narrative History of present illness: Ms. Renee is a 61 year old female - Constitutional Vitals: Temp Pulse Resp BP Pulse Ox 97.3 F L 129 16 92/68 94 12/17/16 14:31 12/17/16 14:31 12/17/16 14:31 12/17/16 14:31 12/17/16 14:31 Results - Labs CBC & Chem 7: 12/17/16 04:00 12/17/16 04:00 Labs: Last Result Calcium 7.2 mg/dL (8.6-10.8) L 12/17/16 04:00 Troponin I 0.00 ng/mL (0-0.03) 12/16/16 22:34 Entire Visit Hgb 10.4 g/dL (11.5-15.4) L 12/17/16 04:00 Hct 31.8 % (35.3-44.9) L 12/17/16 04:00 PT 17.3 Seconds (9.4-12.1) H 12/17/16 12:39 Total Bilirubin 0.4 mg/dL (0.2-1.2) 12/17/16 12:39 AST 19 Units/L (5-34) 12/17/16 12:39 ALT 17 Units/L (0-55) 12/17/16 12:39 - ABG ABG results: PT/INR, D-dimer PT 17.3 Seconds (9.4-12.1) H 12/17/16 12:39 - Attending Attestation I examined this patient and my medical decision-making was reviewed with the Resident Physician. I agree with the documented findings, disposition and treatment plan as described except to the extent set forth below. Pt with coffee-ground emesis, currently hemoglobin stable. Recommendation EGD to rule out esophagitis/gastric causes
[2016-12-17] MEDS ORDERED: Ketorolac 15 MG/ML VIAL IM ONE (11:52)
[2016-12-17] MEDS ORDERED: 0.9 % Sodium Chloride 1,000 ML IVC ONE ×2 (11:53→23:31)
[2016-12-17] MEDS: Sulfamethoxazole/Trimeth DS 1 EACH TABLET PO SCH ×2 (11:53→20:59)
[2016-12-17] MEDS ORDERED: Acetaminophen IV 1,000 MG/100 ML INFUS..BTL IVPB ONE (12:17)
[2016-12-17 12:53] LABS: INR 1.6; Prothrombin Time 17.3 Seconds (9.4-12.1)
[2016-12-17 12:55] LABS: Activated Partial Thrombo Time 34.7 Seconds (26.0-36.0)
[2016-12-17 13:05] LABS: Albumin/Globulin Ratio 0.4 (1.1-2.2); Bilirubin,Direct 0.3 mg/dL (0.0-0.5); Bilirubin,Indirect 0.1 mg/dL (0.0-1.2); Bilirubin,Total 0.4 mg/dL (0.2-1.2); Globulin 2.7 g/dL (2.4-3.5); Total Protein 3.8 g/dL (6.0-8.3)
[2016-12-17 13:07] LABS: Albumin 1.1 g/dL (3.5-5.0)
[2016-12-17] MEDS: Vancomycin 1,000 MG in D5% in Water 250 ML IVPB SCH ×2 (13:41→23:10)
[2016-12-17] MEDS ORDERED: *HR* Metoprolol 5 MG/5 ML VIAL IVP ONE (14:24)
[2016-12-17] MEDS ORDERED: *HR* Propofol 200 MG/20 ML VIAL IVP ONE (14:24)
--- NOTE | 2016-12-17 14:34 | Anesthesia Evaluation PreOp ---
Date of Encounter: 12/17/16 Time of Encounter: 14:32 - Past History Planned Operation: EGD Cardiac History: HTN, Arrhythmia (tachycardia) Pulmonary History: Former smoker (quit 4 months ago, smoked for 40 years), COPD RESEARCH LAB ASSISTANT History: Denies Any Significant HX Other Medical History: GERD, Other (decubitus ulcers) Anesthesia History: No Prior Anesthetic Complications, Past Anesthesia Alcohol Use: none Drug use: none Medications and Allergies Albuterol Sulfate [Ventolin Hfa] 2 puff IH Q4H PRN 07/03/16 [History] Gabapentin [Neurontin] 300 mg PO HS 07/03/16 [History] Ipratropium/Albuterol Neb [Duoneb] 3 ml IH Q4H PRN 07/03/16 [History] Docusate [Colace] 100 mg PO BID 10/12/16 [History] Nystatin POWDER [Nystop] 1 appl TP DAILY PRN 10/12/16 [History] Polyethylene Glycol 3350 [Gavilax] 17 gm PO DAILY 10/12/16 [History] HYDROcodone/Acet 10/325 mg [[place] 10-325 mg] 1 tab PO Q4HR PRN #20 tab 10/16/16 [Rx] Fluticasone/Salmeterol [Advair 500-50 Diskus] 2 puff IH BID 11/20/16 [History] Folic Acid 1 mg PO DAILY 11/20/16 [History] Multivitamin with Minerals [Myvitalife] 1 each PO DAILY 11/20/16 [History] FentaNYL PATCH [Duragesic] 12 mcg TD Q72H #10 patch.td72 11/22/16 [Rx] Magnesium Oxide [Mag-Ox] 400 mg PO BID tab 11/22/16 [Rx] Amino Acids/Protein Hydrolys [Pro-Stat Awc Liquid Packet] 30 ml PO BID 12/16/16 [History] Guaifenesin [Mucinex] 600 mg PO BID 12/16/16 [History] Lactobacillus [Culturelle] 1 each PO BID 12/16/16 [History] Mag Hydrox/Al Hydrox/Simeth [Antacid Suspension] 15 ml PO Q4H PRN 12/16/16 [ History] Metoprolol [Lopressor] 25 mg PO BID 12/16/16 [History] Mirtazapine 7.5 mg PO DAILY 12/16/16 [History] Ondansetron HCl [Zofran] 4 mg PO Q4H PRN 12/16/16 [History] Ondansetron [Zofran] 4 mg IV Q4H PRN 12/16/16 [History] Sulfamethoxazole/Trimeth DS [Bactrim DS] 1 each PO BID 12/16/16 [History] Vancomycin HCl in Dextrose 5 % [Vancomycin 750 mg/250 ml-D5w] 750 mg IV Q12H [History] 3 Allergy/AdvReac Type Severity Reaction Status Date / Time meloxicam [From Mobic] Allergy Hives Verified 11/20/16 16:10 Oxycodone [From Percocet] Allergy Hives Verified 11/20/16 16:10 tramadol AdvReac See Verified 11/20/16 16:10 Comments - Meds/Allergy Pre-op Review Medications Reviewed: Yes Allergies Reviewed: Yes Beta Blockers on Current Med List: Yes If Beta Blockers taken, Date/Time (Last Dose taken): 12/17/2016 at 2220 Anesthesia Results - Labs 12/17/16 04:00 12/17/16 04:00 - Imaging EKG: report reviewed (12/16/2016 SINUS TACHYCARDIA, POSSIBLE ATRIAL FLUTTER LOW QRS VOLTAGE IN EXTREMITY LEADS) Additional studies: 10/13/2016 Echo Impressions: LVEF 55%. Normal left ventricular size and systolic function. Indeterminate left ventricular diastolic function. Normal right ventricular size and function. No significant valvular dysfunction. No pulmonary hypertension. Anesthesia Exam Vital Signs/O2 Sat/Glucose, Most Recent Temp Pulse Resp BP Pulse Ox 97.3 F L 131 16 119/64 94 12/17/16 11:12/17/16 11:09 12/17/16 11:12/17/16 11:12/17/16 11:09 Blood Glucose* 85 Height: 5'3''/1.6 m Weight: 197 lbs/89.5 kg NPO (# of Hours): 8 Pain Scale: 0 Pain Scale Used: Numeric (1 - 10) - HEENT Pupil (Motor): EOMI Mallampati: II Teeth: Normal Oral Opening: Greater than 3 - RESEARCH LAB ASSISTANT LOC: Oriented RESEARCH LAB ASSISTANT Motor: Normal RUE, Deficit LUE, Deficit RLE, Deficit LLE, Deficit Face RESEARCH LAB ASSISTANT Sensory: Normal: Face, Deficit: RUE, LUE, RLE, LLE - Cardiac Rhythm: Regular Murmur: None - Pulmonary Breath Sounds: bilateral Clear (wheezes) Respiratory Effort: Symmetrical Anesthesia Assess/Plan ASA Score: 3 Modified Endeavor Scale for Level of Consciousness: Cooperative, oriented, and tranquil Anesthetic Plan: MAC Monitoring Plan: Standard Monitors
[2016-12-17] MEDS ORDERED: *HR* FentaNYL (PF) 100 MCG/2 ML VIAL IVP ONE (16:19)
[2016-12-17] MEDS ORDERED: 0.9 % Sodium Chloride 1,000 ML IVC SCH (17:42)
[2016-12-17] MEDS ORDERED: *HR* Dextrose 50 % in Water (Syg) 50 ML SYRINGE ONE (17:54)
[2016-12-17] MEDS ORDERED: *HR* Dextrose 50 % in Water (Syg) 50 ML SYRINGE IVP ONE (17:56)
[2016-12-17] MEDS ORDERED: D5% in Water 1,000 ML IVC PRN (17:56)
[2016-12-17] MEDS ORDERED: *HR* Dextrose 50 % in Water (Syg) 50 ML SYRINGE IVP PRN (17:56)
[2016-12-17] MEDS ORDERED: Dextrose Gel 15 GM PO PRN ×2 (17:56)
--- NOTE | 2016-12-17 18:15 | Event Note ---
Date of Encounter: 12/17/16 Time of Encounter: 18:13 I was paged by the nurse due to concerns for persistent hypotension. I evaluated the patient and review of her vital signs showed persistent hypotension over the last half hour despite receiving a total of 2.5 L boluses, which is approximately 30 mL/kg, and a maintenance fluid of 125 mL per hour. At this point of concern for septic shock given the patient's coccygeal wound that is polymicrobial in nature. Blood cultures were drawn earlier in the day are pending. Lactate at approximately 11 AM was normal, will repeat at this time. If the patient is unable to maintain a mean arterial pressure is than 65 we will institute vasopressor agents. Patient is on appropriate antibiotic therapy. Patient will be transferred to the ICU for intensive monitoring. This was discussed with the attending physician, Dr. Cristobal.
[2016-12-17 18:55] LABS: Basophils % 0.2 %; Eosinophils % 0.1 %; Hemoglobin 10.1 g/dL (11.5-15.4); Immature Granulocytes % 0.9 % (0-4); Lymphocytes # 1.4 K/mcL (0.6-4.6); Lymphocytes % 8.5 %; Mean Corpuscular HGB Conc 32.6 g/dL (31.6-35.5); Mean Corpuscular Volume 101.3 fL (83.0-100.0); Mean Platelet Volume 9.3 fL (9.4-12.4); Monocytes # 0.3 K/mcL (0.0-1.3); Monocytes % 2.1 %; Neutrophils # 14.1 K/mcL (1.6-8.9); Platelet Count 128 K/mcL (140-400); Red Blood Count 3.06 M/mcL (3.82-4.97); Red Cell Distribution Width 14.8 % (11.5-14.5); Segmented Neutrophils % 88.2 %
[2016-12-17 19:05] LABS: BUN/Creatinine Ratio 24 (6-26); Blood Urea Nitrogen 13 mg/dL (7-20); Calcium 6.3 mg/dL (8.6-10.8); Carbon Dioxide 21 mEq/L (19-29); Chloride 116 mEq/L (98-109); Glucose 92 mg/dL (70-99); Magnesium 1.4 mg/dL (1.6-2.6); Osmolality,Calculated 286 (280-300); Potassium 3.5 mEq/L (3.5-4.5); Sodium 138 mEq/L (136-145); eGFR For African Americans > 60 (> 60); eGFR For Non-African Americans > 60 (> 60)
[2016-12-17] MEDS: Norepinephrine 4 MG in D5% in Water 250 ML IVC SCH (19:15)
[2016-12-17] MEDS: Gabapentin 300 MG CAPSULE PO SCH (20:58)
[2016-12-17] MEDS: Magnesium Oxide 400 MG TABLET PO SCH (20:59)
[2016-12-17] MEDS: *HR* HYDROcodone/Acet 5/325 mg TABLET PO PRN (21:24)
[2016-12-17] MEDS: Meropenem 1,000 MG in 0.9 % Sodium Chloride Mini Bag 100 ML IVPB SCH (23:10)
[2016-12-18] MEDS: Pantoprazole 40 MG in 0.9 % Sodium Chloride Mini Bag 100 ML IVC SCH ×5 (02:40→23:45)
[2016-12-18] MEDS: 0.9 % Sodium Chloride 1,000 ML IVC SCH (02:41)
[2016-12-18] MEDS: *HR* HYDROcodone/Acet 5/325 mg TABLET PO PRN ×4 (02:56→19:50)
[2016-12-18 03:42] LABS: Basophils % 0.1 %; Eosinophils % 0.1 %; Hematocrit 35.5 % (35.3-44.9); Hemoglobin 11.1 g/dL (11.5-15.4); Immature Granulocytes % 0.9 % (0-4); Lymphocytes # 2.4 K/mcL (0.6-4.6); Lymphocytes % 14.4 %; Mean Corpuscular HGB Conc 31.3 g/dL (31.6-35.5); Mean Corpuscular Volume 102.3 fL (83.0-100.0); Mean Platelet Volume 9.6 fL (9.4-12.4); Monocytes # 0.6 K/mcL (0.0-1.3); Monocytes % 3.5 %; Neutrophils # 13.2 K/mcL (1.6-8.9); Nucleated Red Blood Cells 0.1 /100 WBC (0); Platelet Count 145 K/mcL (140-400); Red Blood Count 3.47 M/mcL (3.82-4.97); Red Cell Distribution Width 14.8 % (11.5-14.5)
[2016-12-18 06:01] LABS: Alanine Aminotransferase 21 Units/L (0-55); Albumin/Globulin Ratio 0.4 (1.1-2.2); Alkaline Phosphatase 106 Units/L (38-126); Aspartate Amino Transferase 22 Units/L (5-34); BUN/Creatinine Ratio 24 (6-26); Bilirubin,Total 0.4 mg/dL (0.2-1.2); Blood Urea Nitrogen 13 mg/dL (7-20); Calcium 6.4 mg/dL (8.6-10.8); Carbon Dioxide 14 mEq/L (19-29); Chloride 116 mEq/L (98-109); Globulin 2.8 g/dL (2.4-3.5); Glucose 125 mg/dL (70-99); Osmolality,Calculated 286 (280-300); Sodium 137 mEq/L (136-145); Total Protein 3.8 g/dL (6.0-8.3); eGFR For African Americans > 60 (> 60); eGFR For Non-African Americans > 60 (> 60)
[2016-12-18 06:02] LABS: Potassium 3.6 mEq/L (3.5-4.5)
--- NOTE | 2016-12-18 07:22 | Pulmonology Consult Note ---
<Juana Rosas - Last Filed: 12/18/16 13:11> Date of Encounter: 12/18/16 Time of Encounter: 09:00 Assessment and Plan (1) Sepsis Current Visit: Yes Status: Acute Concern for sepsis due to the rapid onset of hypotension on the floor. No overt sign of infection at this time. Decreased urinary output that most likely due to third spacing from fluid boluses overnight. Chest x-ray was clear. Awaiting blood and new urine culture. Although there is a multi- bacterial open wound, coccyx the patient has been receiving appropriate antibiotics and the wound itself does not look to be draining at this time or other overt signs of infection. Continue to trend lab work. Blood pressure now stable with systolic above 100 and map above 65 Qualifiers: Sepsis type: sepsis due to unspecified organism Qualified Code(s): A41.9 - Sepsis, unspecified organism (2) Esophagitis, erosive Current Visit: Yes Status: Acute Found on EGD completed by GI. Patient currently receiving Protonix and Carafate. GI consulted (3) Hematemesis Current Visit: Yes Status: Acute Patient admitted with hematemesis. Hemoglobin stable at 11.1. EGD was completed which showed erosive esophagitis. Patient receiving Protonix drip and Carafate at this time per GI. GI has been consulted Qualifiers: Nausea presence: with nausea Qualified Code(s): K92.0 - Hematemesis; R11.0 - Nausea (4) Osteomyelitis of coccyx Current Visit: Yes Status: Acute Patient being treated at outside facility by infectious disease physician. PICC line placed 11/29 for IV antibiotic usage. Culture of the wound showed multiple pathogens which collectively showed sensitivity to meropenem and vanc. We will continue these antibiotics (5) Anemia Current Visit: Yes Status: Acute Chronic normocytic anemia. Admitted for hematemesis without significant change in hemoglobin and hematocrit or MCV. Hemoglobin 11.1 today. Qualifiers: Anemia type: unspecified type Qualified Code(s): D64.9 - Anemia, unspecified (6) DVT prophylaxis Current Visit: Yes Status: Acute Patient had 4 episodes of hematoemesis therefore heparin is contraindicated at this time. Place the patient on SCDs History of Present Illness Consult date: 12/18/16 Reason for consult: other (Hypotension possible Sepsis) Chief complaint: Hypotension History of present illness: 61-year-old female originally transferred from [place] emergency department for 4 episodes of hematoemesis. On the floor she received an EGD which showed erosive esophagitis. GI has placed her on a continuous IV Protonix drip and Carafate. While on the floor after the EGD was completed the patient had labile blood pressures and hypotension. Patient was transferred to the ICU for continuing care of the hypotension with pressors. While in the ICU her blood pressure has been labile and there were concerns about accurate readings. At this time patient's blood pressure is stable with systolic above 100 and map above 65. Concern for sepsis originally due to the new onset hypotension. Patient has a coccygeal ulcer to the bone with osteomyelitis. This is being treated as an outpatient through a PICC line. The PICC line was placed on November 29. She had an appointment with infectious disease a day before she admitted. They stopped her Bactrim, continued the vancomycin, and added multiple other antibiotics both IV and oral to treat he osteomyelitis. Patient has not followed up with orthopedics at this time. Patient complains of diffuse upper extremity weakness and left lower extremity swelling. According to the shelter, this is her baseline mental status and physical exam. Patient has been dealing with upper extremity weakness for greater than 3 months at the shelter. Past Med Surg Social Fam HX - Past Medical History Medical history: asthma, COPD, hyperlipidemia, hypertension, other Psychiatric history: no psych history - Past Surgical History Surgical History: knee replacement, orthopedic, other, other - Social History Smoking Status: Former smoker Smokeless Tobacco Status: No Alcohol use: none Drug use: none - Family History Mother Living Status: Hx Family Cardiac Disorders: Yes ([place]) Hx Family Respiratory Disorders: Yes (COPD) Hx Family Cancer: No Hx Family GI Disorders: No Hx Family Endocrine Disorder: No Hx Family Neuromuscular Disorders: No Hx Family Neurologic Disorders: No Hx Family HEENT Disorders: No Hx Family Autoimmune Disorders: No Father Hx Family Cardiac Disorders: Yes (CAD) Medications and Allergies Albuterol Sulfate [Ventolin Hfa] 2 puff IH Q4H PRN 07/03/16 [History] Gabapentin [Neurontin] 300 mg PO HS 07/03/16 [History] Ipratropium/Albuterol Neb [Duoneb] 3 ml IH Q4H PRN 07/03/16 [History] Docusate [Colace] 100 mg PO BID 10/12/16 [History] Nystatin POWDER [Nystop] 1 appl TP DAILY PRN 10/12/16 [History] Polyethylene Glycol 3350 [Gavilax] 17 gm PO DAILY 10/12/16 [History] HYDROcodone/Acet 10/325 mg [Artemas 10-325 mg] 1 tab PO Q4HR PRN #20 tab 10/16/16 [Rx] Fluticasone/Salmeterol [Advair 500-50 Diskus] 2 puff IH BID 11/20/16 [History] Folic Acid 1 mg PO DAILY 11/20/16 [History] Multivitamin with Minerals [Myvitalife] 1 each PO DAILY 11/20/16 [History] FentaNYL PATCH [Duragesic] 12 mcg TD Q72H #10 patch.td72 11/22/16 [Rx] Magnesium Oxide [Mag-Ox] 400 mg PO BID tab 11/22/16 [Rx] Amino Acids/Protein Hydrolys [Pro-Stat Awc Liquid Packet] 30 ml PO BID 12/16/16 [History] Guaifenesin [Mucinex] 600 mg PO BID 12/16/16 [History] Lactobacillus [Culturelle] 1 each PO BID 12/16/16 [History] Mag Hydrox/Al Hydrox/Simeth [Antacid Suspension] 15 ml PO Q4H PRN 12/16/16 [ History] Metoprolol [Lopressor] 25 mg PO BID 12/16/16 [History] Mirtazapine 7.5 mg PO DAILY 12/16/16 [History] Ondansetron HCl [Zofran] 4 mg PO Q4H PRN 12/16/16 [History] Ondansetron [Zofran] 4 mg IV Q4H PRN 12/16/16 [History] Sulfamethoxazole/Trimeth DS [Bactrim DS] 1 each PO BID 12/16/16 [History] Vancomycin HCl in Dextrose 5 % [Vancomycin 750 mg/250 ml-D5w] 750 mg IV Q12H [History] 3 Allergy/AdvReac Type Severity Reaction Status Date / Time meloxicam [From Mobic] Allergy Hives Verified 11/20/16 16:10 Oxycodone [From Percocet] Allergy Hives Verified 11/20/16 16:10 tramadol AdvReac See Verified 11/20/16 16:10 Comments All Systems: A 10-system review of systems was performed and is negative for pertinent findings except as documented above in the HPI. - Constitutional Constitutional: weakness, no chills, no fever(s) - EENT Eyes: as per HPI Ears: as per HPI Nose, mouth and throat: dry mouth, no dysphagia, no hoarseness - Cardiovascular Cardiovascular: no chest pain, no dyspnea, no syncope - Respiratory Respiratory: no cough, no dyspnea, no wheezing - Gastrointestinal Gastrointestinal: hematemesis, no abdominal pain, no diarrhea, no hematochezia - Genitourinary Genitourinary: as per HPI - Musculoskeletal Musculoskeletal: muscle weakness, no numbness, no tingling - Integumentary Integumentary: no rash, no jaundice - Neurological Neurological: weakness, no headache(s), no loss of vision - Psychiatric Psychiatric: as per HPI - Endocrine Endocrine: as per HPI - Hematologic/Lymphatic Hematologic/Lymphatic: as per HPI - Allergic/Immunologic Allergic/Immunologic: as per HPI Physical Examination Vital Signs: Vital Signs, Last 4 Hours Temp Pulse Resp BP Pulse Ox 12/18/16 05:59 130 20 96/46 100 12/18/16 05:00 126 20 101/69 100 12/18/16 04:00 97.5 F L 128 20 100/43 94 General appearance: no acute distress, alert Eyes: nonicteric ENT: oropharynx moist Neck: supple, no JVD Effort: normal Inspection: normal Auscultation: bilateral: clear Cardiovascular: other (Tachycardia which is patient's baseline) Gastrointestinal: normoactive bowel sounds, soft, non-distended Integumentary: decubitus ulcer (Noted, coccyx which goes all the way to the bone ) Extremities: no cyanosis, edema Musculoskeletal: no deformities normal mental status, non-focal exam mood appropriate, affect normal Results - Laboratory Findings CBC and BMP: 12/18/16 03:32 12/18/16 04:00 PT/INR, D-dimer PT 17.3 Seconds (9.4-12.1) H 12/17/16 12:39 Abnormal lab findings: Abnormal lab results WBC 16.3 K/mcL (4.3-11.1) H 12/18/16 03:32 RBC 3.47 M/mcL (3.82-4.97) L 12/18/16 03:32 Hgb 11.1 g/dL (11.5-15.4) L 12/18/16 03:32 MCV 102.3 fL (83.0-100.0) H 12/18/16 03:32 MCHC 31.3 g/dL (31.6-35.5) L 12/18/16 03:32 RDW 14.8 % (11.5-14.5) H 12/18/16 03:32 Neutrophils # 13.2 K/mcL (1.6-8.9) H 12/18/16 03:32 Nucleated RBCs/100 WBC 0.1 /100 WBC (0) H 12/18/16 03:32 PT 17.3 Seconds (9.4-12.1) H 12/17/16 12:39 Chloride 116 mEq/L (98-109) H 12/18/16 04:00 Carbon Dioxide 14 mEq/L (19-29) L 12/18/16 04:00 Creatinine 0.55 mg/dL (0.57-1.11) L 12/18/16 04:00 Glucose 125 mg/dL (70-99) H 12/18/16 04:00 POC Glucose 95 (58-89) H 12/18/16 00:02 Calcium 6.4 mg/dL (8.6-10.8) L 12/18/16 04:00 Magnesium 1.4 mg/dL (1.6-2.6) L 12/17/16 18:40 C-Reactive Protein 50 mg/L (Less than 5) H 12/18/16 03:32 Serum Total Protein 3.8 g/dL (6.0-8.3) L 12/18/16 04:00 Albumin 1.0 g/dL (3.5-5.0) L 12/18/16 04:00 Albumin/Globulin Ratio 0.4 (1.1-2.2) L 12/18/16 04:00 Urine Color [place] (Yellow) A 12/16/16 17:02 Urine Clarity Turbid (Clear) A 12/16/16 17:02 Ur Specific [place] > 1.030 (1.010-1.025) H 12/16/16 17:02 Urine Protein 30 mg/dL (Neg-Trace) H 12/16/16 17:02 Urine Ketones Trace mg/dL (Negative) H 12/16/16 17:02 Urine Blood Large (Negative) H 12/16/16 17:02 Urine Bilirubin Small (Negative) H 12/16/16 17:02 Ur Leukocyte Esterase Small (Negative) H 12/16/16 17:02 Urine Microscopic RBC 15-30 per hpf (0-3) H 12/16/16 17:02 Urine Microscopic WBC 3-5 per hpf (0-3) H 12/16/16 17:02 Ur Culture Indicated? YES (NO) A 12/16/16 17:02 - Microbiology Findings Microbiology Findings: Microbiology, Last 48 Hours 12/16/16 17:02 Urine Culture - Final Urine,Clean Catch No growth. - Diagnostic Findings Chest x-ray: report reviewed, image reviewed - Clinical Findings Intake & Output: Intake & Output 12/17/16 12/17/16 12/18/16 15:59 23:59 07:59 Intake Total 1350 / 1350 1800 / 1800 2350 / 2350 Output Total 150 / 150 75 / 75 Balance 1350 / 1350 1650 / 1650 2275 / 2275 Weight 91.4 kg Consult Discharge Plan - Plan Referrals: Renard Spears DO [Primary Care Provider] - (PATIENT IS FROM [facility] NO PCP APPOINTMENT NEEDED) <Maurisio Casas - Last Filed: 12/18/16 14:37> Date of Encounter: 12/18/16 All Systems: A 10-system review of systems was performed and is negative for pertinent findings except as documented above in the HPI. Physical Examination Vital Signs: Vital Signs, Last 4 Hours Temp Pulse Resp BP Pulse Ox 12/18/16 08:00 97.5 F L 118 16 115/34 100 12/18/16 07:00 138 20 103/50 100 12/18/16 05:59 130 20 96/46 100 12/18/16 05:00 126 20 101/69 100 Results - Laboratory Findings CBC and BMP: 12/18/16 03:32 12/18/16 04:00 PT/INR, D-dimer PT 17.3 Seconds (9.4-12.1) H 12/17/16 12:39 Abnormal lab findings: Abnormal lab results WBC 16.3 K/mcL (4.3-11.1) H 12/18/16 03:32 RBC 3.47 M/mcL (3.82-4.97) L 12/18/16 03:32 Hgb 11.1 g/dL (11.5-15.4) L 12/18/16 03:32 MCV 102.3 fL (83.0-100.0) H 12/18/16 03:32 MCHC 31.3 g/dL (31.6-35.5) L 12/18/16 03:32 RDW 14.8 % (11.5-14.5) H 12/18/16 03:32 Neutrophils # 13.2 K/mcL (1.6-8.9) H 12/18/16 03:32 Nucleated RBCs/100 WBC 0.1 /100 WBC (0) H 12/18/16 03:32 PT 17.3 Seconds (9.4-12.1) H 12/17/16 12:39 Chloride 116 mEq/L (98-109) H 12/18/16 04:00 Carbon Dioxide 14 mEq/L (19-29) L 12/18/16 04:00 Creatinine 0.55 mg/dL (0.57-1.11) L 12/18/16 04:00 Glucose 125 mg/dL (70-99) H 12/18/16 04:00 POC Glucose 95 (58-89) H 12/18/16 00:02 Calcium 6.4 mg/dL (8.6-10.8) L 12/18/16 04:00 Magnesium 1.4 mg/dL (1.6-2.6) L 12/17/16 18:40 C-Reactive Protein 50 mg/L (Less than 5) H 12/18/16 03:32 Serum Total Protein 3.8 g/dL (6.0-8.3) L 12/18/16 04:00 Albumin 1.0 g/dL (3.5-5.0) L 12/18/16 04:00 Albumin/Globulin Ratio 0.4 (1.1-2.2) L 12/18/16 04:00 Urine Color [place] (Yellow) A 12/16/16 17:02 Urine Clarity Turbid (Clear) A 12/16/16 17:02 Ur Specific [place] > 1.030 (1.010-1.025) H 12/16/16 17:02 Urine Protein 30 mg/dL (Neg-Trace) H 12/16/16 17:02 Urine Ketones Trace mg/dL (Negative) H 12/16/16 17:02 Urine Blood Large (Negative) H 12/16/16 17:02 Urine Bilirubin Small (Negative) H 12/16/16 17:02 Ur Leukocyte Esterase Small (Negative) H 12/16/16 17:02 Urine Microscopic RBC 15-30 per hpf (0-3) H 12/16/16 17:02 Urine Microscopic WBC 3-5 per hpf (0-3) H 12/16/16 17:02 Ur Culture Indicated? YES (NO) A 12/16/16 17:02 - Microbiology Findings Microbiology Findings: Microbiology, Last 48 Hours 12/16/16 19:04 Blood Culture - Preliminary Peripheral Venipuncture No growth. 12/16/16 17:26 Blood Culture - Preliminary Peripheral Venipuncture No growth. 12/16/16 17:02 Urine Culture - Final Urine,Clean Catch No growth. - Clinical Findings Intake & Output: Intake & Output 12/17/16 12/18/16 12/18/16 23:59 07:59 15:59 Intake Total 1800 / 1800 2450 / 2450 Output Total 150 / 150 75 / 75 Balance 1650 / 1650 2375 / 2375 Weight 91.4 kg - Attending Attestation I examined this patient and my medical decision-making was reviewed with the Resident Physician. I agree with the documented findings, disposition and treatment plan as described except to the extent set forth below. We independently had [id number] contact with the patient Patient seen and examined at bedside Labs, radiology, chart personally reviewed. Management was reviewed during multidisciplinary critical care rounds. Neuropsych: A/o x 3 mild confusion at times. Avoid [employer] depressants avoid sensory deprivation focus on druze of sleep-wake cycle Pulm: Chest x-ray reviewed without evidence aspiration. Acceptable oxygenation on nasal cannula continue to monitor Cards: Hypotension some concern distrubtive shock being treated with vasopressors with noted sinus tachycardia which is chronic in nature. ECG w/o evidence of STEMI. No active chest pain. No objective evidence that she is in shock. May need arterial line placed if the cuff pressures remain aberrant Gold mean arterial pressure of 60 FEN-GI: Advance diet she has Errosive esophagitis status post EGD yesterday continue PPI and Carafate. Gastroenterology following Renal: Schedule 25% albumin for anasarca continue to monitor urine output ID: Sepsis with Shock possible from osteomyelitis catheter-related bloodstream infection less likely aspiration. We are covering broadly with antimicrobials for multidrug resistant organisms (from wound culture) with plan for de- escalation Heme/Onc: DVT prophylaxis given Endo: Glucose Monitored Integ/MSK: Skin Care per routine ICU Nursing Protocol to prevent ulcers. She has a sacral decubitus ulcer with osteomyelitis the ulcer can be probed to the bone although the is no evidence of purulent discharge or foul-smelling discharge. wound care nurse has been consulted Lines: All lines examined without evidence of infection including: Dispo: Remains in ICU until blood pressure has normalized CODE: Full
[2016-12-18] MEDS: Magnesium Oxide 400 MG TABLET PO SCH ×2 (07:52→19:40)
[2016-12-18] MEDS: Folic Acid 1 MG TABLET PO SCH (07:52)
[2016-12-18] MEDS: Sucralfate 1 GM TABLET PO SCH ×2 (07:52→15:20)
[2016-12-18] MEDS: Sulfamethoxazole/Trimeth DS 1 EACH TABLET PO SCH (07:52)
[2016-12-18] MEDS: Meropenem 1,000 MG in 0.9 % Sodium Chloride Mini Bag 100 ML IVPB SCH ×2 (07:54→15:18)
[2016-12-18] MEDS ORDERED: Albumin 25% 25gram/100mL 25 GM/100 ML IV.SOLN IVPB ONE (09:38)
[2016-12-18] MEDS: Norepinephrine 4 MG in D5% in Water 250 ML IVC SCH (09:52)
[2016-12-18] MEDS: Budesonide/Formoterol 160/4.5 MDI IH SCH ×2 (10:14→22:04)
[2016-12-18 11:36] LABS: INR 1.6; Prothrombin Time 17.9 Seconds (9.4-12.1)
[2016-12-18] MEDS: Vancomycin 1,000 MG in D5% in Water 250 ML IVPB SCH (12:29)
[2016-12-18] MEDS: *HR* Heparin 5,000 UNIT/ML VIAL SQ SCH (18:12)
[2016-12-18] MEDS: Gabapentin 300 MG CAPSULE PO SCH (19:40)
[2016-12-18] MEDS ORDERED: Acetaminophen IV 1,000 MG/100 ML INFUS..BTL IVPB ONE (22:31)
[2016-12-19] MEDS: Vancomycin 1,000 MG in D5% in Water 250 ML IVPB SCH (00:49)
[2016-12-19] MEDS: *HR* Promethazine 25 MG/ML VIAL IVP PRN (00:54)
[2016-12-19] MEDS: *HR* HYDROcodone/Acet 5/325 mg TABLET PO PRN ×2 (00:54→08:55)
[2016-12-19] MEDS: Meropenem 1,000 MG in 0.9 % Sodium Chloride Mini Bag 100 ML IVPB SCH ×3 (00:54→16:57)
[2016-12-19 01:30] LABS: Bilirubin,Urine Small (Negative); Blood,Urine Large (Negative); Clarity,Urine Turbid (Clear); Color,Urine Dark Yellow (Yellow); Glucose,Urine (UA) Normal (Normal); Ketones,Urine Negative (Negative); Leukocyte Esterase,Urine Small (Negative); Nitrite,Urine Negative (Negative); PH,Urine 5.5 pH Units (5.0-8.0); Protein,Urine Trace mg/dL (Neg-Trace); Specific Gravity,Urine > 1.030 (1.010-1.025); Urobilinogen,Urine Normal (Normal)
[2016-12-19 01:32] LABS: Squamous Epithelial Cell,Urine Many per lpf (None-Few)
[2016-12-19 01:46] LABS: Calcium Oxalate Crystals,Urine Present
[2016-12-19 01:48] LABS: Bacteria,Urine Moderate per hpf (None-Few); RBC,Urine 15-30 per hpf (0-3); WBC,Urine 15-30 per hpf (0-3)
[2016-12-19 01:49] LABS: Hyaline Casts,Urine Moderate per lpf (None-Few)
[2016-12-19 03:15] LABS: Basophils % 0.2 %; Eosinophils # 0.2 K/mcL (0.0-0.6); Eosinophils % 3.9 %; Hematocrit 24.1 % (35.3-44.9); Immature Platelets 1.5 % (1.1-6.1); Lymphocytes # 1.8 K/mcL (0.6-4.6); Mean Corpuscular Hemoglobin 32.1 pg (28.0-33.3); Mean Corpuscular Volume 100.4 fL (83.0-100.0); Mean Platelet Volume 8.9 fL (9.4-12.4); Monocytes # 0.4 K/mcL (0.0-1.3); Monocytes % 6.6 %; Neutrophils # 3.4 K/mcL (1.6-8.9); Platelet Count 121 K/mcL (140-400); Red Cell Distribution Width 14.5 % (11.5-14.5); Segmented Neutrophils % 58.3 %
[2016-12-19 03:16] LABS: Hemoglobin 7.7 g/dL (11.5-15.4)
[2016-12-19 03:33] LABS: BUN/Creatinine Ratio 24 (6-26); Blood Urea Nitrogen 12 mg/dL (7-20); Carbon Dioxide 17 mEq/L (19-29); Chloride 114 mEq/L (98-109); Glucose 70 mg/dL (70-99); Osmolality,Calculated 282 (280-300); Potassium 3.4 mEq/L (3.5-4.5); Sodium 137 mEq/L (136-145); eGFR For African Americans > 60 (> 60); eGFR For Non-African Americans > 60 (> 60)
[2016-12-19 04:16] LABS: Basophils % 0.4 %; Eosinophils # 0.2 K/mcL (0.0-0.6); Eosinophils % 4.1 %; Hemoglobin 7.4 g/dL (11.5-15.4); Immature Granulocytes % 0.6 % (0-4); Lymphocytes # 1.6 K/mcL (0.6-4.6); Lymphocytes % 30.4 %; Mean Corpuscular HGB Conc 32.2 g/dL (31.6-35.5); Mean Corpuscular Hemoglobin 32.2 pg (28.0-33.3); Mean Platelet Volume 9.3 fL (9.4-12.4); Monocytes # 0.4 K/mcL (0.0-1.3); Monocytes % 6.7 %; Neutrophils # 3.1 K/mcL (1.6-8.9); Platelet Count 105 K/mcL (140-400); Red Cell Distribution Width 14.5 % (11.5-14.5); Segmented Neutrophils % 57.8 %
[2016-12-19] MEDS: Pantoprazole 40 MG in 0.9 % Sodium Chloride Mini Bag 100 ML IVC SCH ×2 (04:20→08:53)
[2016-12-19] MEDS: *HR* Heparin 5,000 UNIT/ML VIAL SQ SCH ×2 (05:50→16:58)
--- NOTE | 2016-12-19 06:57 | Pulmonology Progress Note ---
<Juana Rosas - Last Filed: 12/19/16 10:10> Date of Encounter: 12/19/16 Time of Encounter: 07:00 Assessment and Plan (1) Sepsis Current Visit: Yes Status: Acute Concern for sepsis due to the rapid onset of hypotension on the floor. No overt sign of infection at this time. Decreased urinary output that most likely due to third spacing from fluid boluses overnight. Chest x-ray was clear. Awaiting blood and new urine culture. Although there is a multi- bacterial open wound, coccyx the patient has been receiving appropriate antibiotics and the wound itself does not look to be draining at this time or other overt signs of infection. Continue to trend lab work. Blood pressure now stable with systolic above 90 and map above 60 Qualifiers: Sepsis type: sepsis due to unspecified organism Qualified Code(s): A41.9 - Sepsis, unspecified organism (2) Esophagitis, erosive Current Visit: Yes Status: Acute Found on EGD completed by GI. Patient currently receiving Protonix and Carafate. GI consulted (3) Hematemesis Current Visit: Yes Status: Acute Patient admitted with hematemesis. Hemoglobin down trended to 7.4. No signs of acute bleeding at this time. Most likely due to hemodilution. EGD was completed which showed erosive esophagitis. Patient receiving Protonix drip and Carafate at this time per GI. GI has been consulted Qualifiers: Nausea presence: with nausea Qualified Code(s): K92.0 - Hematemesis; R11.0 - Nausea (4) Osteomyelitis of coccyx Current Visit: Yes Status: Acute Patient being treated at outside facility by infectious disease physician. PICC line placed 11/29 for IV antibiotic usage. Culture of the wound showed multiple pathogens which collectively showed sensitivity to meropenem and vanc. We will continue these antibiotics (5) Anemia Current Visit: Yes Status: Acute Chronic normocytic anemia. Admitted for hematemesis without significant change in hemoglobin and hematocrit or MCV. Hemoglobin 7.4 today. Patient received significant fluid yesterday. Multifactorial cause most likely due to hemodilution Qualifiers: Anemia type: unspecified type Qualified Code(s): D64.9 - Anemia, unspecified (6) DVT prophylaxis Current Visit: Yes Status: Acute No new acute bleeding episodes. Patient placed on heparin Subjective Principal diagnosis: Hypotension Interval history: Patient transferred to the ICU from for labile blood pressure and hypotension. Patient received pressors while in the ICU. Now off of pressors with good results. Systolic above 90 at this time. Patient otherwise stable at this time. Only complaint is diffuse body pain which is her baseline. Plan to transfer to the floor today. Signed patient out to Dr. Lind Objective PUL Vital signs: Last Vital Signs Temp 97.6 F 12/19/16 04:00 Pulse 107 12/19/16 05:48 Resp 12 12/19/16 05:48 BP 89/64 12/19/16 05:48 Pulse Ox 100 12/19/16 05:48 General appearance: alert, appears uncomfortable Eyes: nonicteric ENT: oropharynx moist Neck: supple, no JVD Effort: normal Auscultation: bilateral: clear Cardiovascular: regular rate and rhythm Gastrointestinal: normoactive bowel sounds, soft, non-distended Integumentary: other (Tunneling open wound over the coccyx that goes to the bone.) Extremities: no cyanosis, edema Musculoskeletal: no deformities Gait: normal posture normal mental status, non-focal exam mood appropriate, affect normal Results - Laboratory Findings CBC and BMP: 12/19/16 04:00 12/19/16 04:00 PT/INR, D-dimer PT 17.9 Seconds (9.4-12.1) H 12/18/16 11:05 Abnormal lab findings: Abnormal lab results RBC 2.30 M/mcL (3.82-4.97) L 12/19/16 04:00 Hgb 7.4 g/dL (11.5-15.4) L 12/19/16 04:00 Hct 23.0 % (35.3-44.9) L 12/19/16 04:00 Plt Count 105 K/mcL (140-400) L 12/19/16 04:00 MPV 9.3 fL (9.4-12.4) L 12/19/16 04:00 Nucleated RBCs/100 WBC 0.1 /100 WBC (0) H 12/18/16 03:32 PT 17.9 Seconds (9.4-12.1) H 12/18/16 11:05 Potassium 3.4 mEq/L (3.5-4.5) L 12/19/16 04:00 Chloride 114 mEq/L (98-109) H 12/19/16 04:00 Carbon Dioxide 17 mEq/L (19-29) L 12/19/16 04:00 Creatinine 0.50 mg/dL (0.57-1.11) L 12/19/16 04:00 Calcium 7.0 mg/dL (8.6-10.8) L 12/19/16 04:00 Ionized Calcium 1.03 mmol/L (1.15-1.35) L 12/18/16 11:05 Magnesium 1.5 mg/dL (1.6-2.6) L 12/19/16 03:00 C-Reactive Protein 50 mg/L (Less than 5) H 12/18/16 03:32 Serum Total Protein 3.8 g/dL (6.0-8.3) L 12/18/16 04:00 Albumin 1.0 g/dL (3.5-5.0) L 12/18/16 04:00 Albumin/Globulin Ratio 0.4 (1.1-2.2) L 12/18/16 04:00 Urine Clarity Turbid (Clear) A 12/19/16 01:10 Ur Specific Rosenberg > 1.030 (1.010-1.025) H 12/19/16 01:10 Urine Blood Large (Negative) H 12/19/16 01:10 Urine Bilirubin Small (Negative) H 12/19/16 01:10 Ur Leukocyte Esterase Small (Negative) H 12/19/16 01:10 Urine Microscopic RBC 15-30 per hpf (0-3) H 12/19/16 01:10 Urine Microscopic WBC 15-30 per hpf (0-3) H 12/19/16 01:10 Ur Squamous Epith Cells Many per lpf (None-Few) H 12/19/16 01:10 Urine Bacteria Moderate per hpf (None-Few) H 12/19/16 01:10 Hyaline Casts Moderate per lpf (None-Few) H 12/19/16 01:10 Ur Culture Indicated? YES (NO) A 12/19/16 01:10 Vancomycin Trough 23.3 mcg/mL (10-20) H* 12/18/16 23:30 - Microbiology Findings Microbiology Findings: Microbiology, Last 48 Hours 12/16/16 19:04 Blood Culture - Preliminary Peripheral Venipuncture No growth. 12/16/16 17:26 Blood Culture - Preliminary Peripheral Venipuncture No growth. 12/16/16 17:02 Urine Culture - Final Urine,Clean Catch No growth. - Clinical Findings Intake & Output: Intake & Output 12/18/16 12/18/16 12/19/16 15:59 23:59 07:59 Intake Total 804 / 804 560 / 560 800 / 800 Output Total 100 / 100 75 / 75 125 / 125 Balance 704 / 704 485 / 485 675 / 675 Weight 94.8 kg - VTE Documentation of Mechanical Device: Intermittent pneumatic compression device Consult Discharge Plan - Plan Referrals: Renard Spears DO [Primary Care Provider] - (PATIENT IS FROM [facility] NO PCP APPOINTMENT NEEDED) <Maurisio Casas - Last Filed: 12/19/16 10:27> Date of Encounter: 12/19/16 Objective PUL Vital signs: Last Vital Signs Temp 97.6 F 12/19/16 08:16 Pulse 121 12/19/16 09:00 Resp 12 12/19/16 09:00 BP 90/64 12/19/16 09:00 Pulse Ox 100 12/19/16 09:00 Results - Laboratory Findings CBC and BMP: 12/19/16 04:00 12/19/16 04:00 PT/INR, D-dimer PT 17.9 Seconds (9.4-12.1) H 12/18/16 11:05 Abnormal lab findings: Abnormal lab results RBC 2.30 M/mcL (3.82-4.97) L 12/19/16 04:00 Hgb 7.4 g/dL (11.5-15.4) L 12/19/16 04:00 Hct 23.0 % (35.3-44.9) L 12/19/16 04:00 Plt Count 105 K/mcL (140-400) L 12/19/16 04:00 MPV 9.3 fL (9.4-12.4) L 12/19/16 04:00 Nucleated RBCs/100 WBC 0.1 /100 WBC (0) H 12/18/16 03:32 PT 17.9 Seconds (9.4-12.1) H 12/18/16 11:05 Potassium 3.4 mEq/L (3.5-4.5) L 12/19/16 04:00 Chloride 114 mEq/L (98-109) H 12/19/16 04:00 Carbon Dioxide 17 mEq/L (19-29) L 12/19/16 04:00 Creatinine 0.50 mg/dL (0.57-1.11) L 12/19/16 04:00 Calcium 7.0 mg/dL (8.6-10.8) L 12/19/16 04:00 Ionized Calcium 1.03 mmol/L (1.15-1.35) L 12/18/16 11:05 Magnesium 1.5 mg/dL (1.6-2.6) L 12/19/16 03:00 C-Reactive Protein 50 mg/L (Less than 5) H 12/18/16 03:32 Serum Total Protein 3.8 g/dL (6.0-8.3) L 12/18/16 04:00 Albumin 1.0 g/dL (3.5-5.0) L 12/18/16 04:00 Albumin/Globulin Ratio 0.4 (1.1-2.2) L 12/18/16 04:00 Urine Clarity Turbid (Clear) A 12/19/16 01:10 Ur Specific Rosenberg > 1.030 (1.010-1.025) H 12/19/16 01:10 Urine Blood Large (Negative) H 12/19/16 01:10 Urine Bilirubin Small (Negative) H 12/19/16 01:10 Ur Leukocyte Esterase Small (Negative) H 12/19/16 01:10 Urine Microscopic RBC 15-30 per hpf (0-3) H 12/19/16 01:10 Urine Microscopic WBC 15-30 per hpf (0-3) H 12/19/16 01:10 Ur Squamous Epith Cells Many per lpf (None-Few) H 12/19/16 01:10 Urine Bacteria Moderate per hpf (None-Few) H 12/19/16 01:10 Hyaline Casts Moderate per lpf (None-Few) H 12/19/16 01:10 Ur Culture Indicated? YES (NO) A 12/19/16 01:10 Vancomycin Trough 23.3 mcg/mL (10-20) H* 12/18/16 23:30 - Microbiology Findings Microbiology Findings: Microbiology, Last 48 Hours 12/17/16 10:11 Blood Culture - Preliminary Peripheral Central Cath, Picc No growth. 12/17/16 10:37 Blood Culture - Preliminary Peripheral Venipuncture No growth. 12/16/16 19:04 Blood Culture - Preliminary Peripheral Venipuncture No growth. 12/16/16 17:26 Blood Culture - Preliminary Peripheral Venipuncture No growth. 12/16/16 17:02 Urine Culture - Final Urine,Clean Catch No growth. - Clinical Findings Intake & Output: Intake & Output 12/18/16 12/19/16 12/19/16 23:59 07:59 15:59 Intake Total 560 / 560 800 / 800 100 / 100 Output Total 75 / 75 125 / 125 50 / 50 Balance 485 / 485 675 / 675 50 / 50 Weight 94.8 kg - Attending Attestation I examined this patient and my medical decision-making was reviewed with the Resident Physician. I agree with the documented findings, disposition and treatment plan as described except to the extent set forth below. We independently had [id number] contact with the patient Patient seen and examined at bedside Labs, radiology, chart personally reviewed. Management was reviewed during multidisciplinary critical care rounds. 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 Acceptable oxygenation on nasal cannula continue to monitor Cards: Hypotension has resolved there is no evidence of shock physiology. FEN-GI: Advance diet she has Errosive esophagitis status post EGD yesterday continue PPI and Carafate. Gastroenterology following Renal: Schedule 25% albumin for anasarca continue to monitor urine output ID: Sepsis with Shock possible from osteomyelitis catheter-related bloodstream infection less likely aspiration. We are covering broadly with antimicrobials for multidrug resistant organisms (from wound culture) with plan for de- escalation. Her leukocytosis is improving Heme/Onc: DVT prophylaxis given Endo: Glucose Monitored Integ/MSK: Skin Care per routine ICU Nursing Protocol to prevent ulcers. She has a sacral decubitus ulcer with osteomyelitis she is receiving appropriate treatment including wound care consultation Lines: All lines examined without evidence of infection including: Dispo: Stable for transfer to [facility] telemetry. Report called to admitting hospitalist by the covering resident CODE: Full
[2016-12-19] MEDS: Budesonide/Formoterol 160/4.5 MDI IH SCH ×3 (07:41→22:00)
[2016-12-19] MEDS: Folic Acid 1 MG TABLET PO SCH (08:54)
[2016-12-19] MEDS: Magnesium Oxide 400 MG TABLET PO SCH ×2 (08:54→21:51)
[2016-12-19] MEDS: Sucralfate 1 GM TABLET PO SCH ×2 (08:54→16:58)
[2016-12-19] MEDS ORDERED: Vancomycin 750 MG in D5% in Water 250 ML IVPB SCH (09:00)
[2016-12-19] MEDS ORDERED: *HR* Promethazine 25 MG/ML VIAL IVP PRN (09:43)
[2016-12-19] MEDS ORDERED: Ondansetron 4 MG/2 ML VIAL IVP PRN (09:43)
[2016-12-19] MEDS ORDERED: Naloxone 0.4 MG/ML INJ IVP PRN (09:43)
[2016-12-19] MEDS ORDERED: D5% in Water 1,000 ML IVC PRN (09:43)
[2016-12-19] MEDS ORDERED: Acetaminophen 325 MG TABLET PO PRN (09:43)
[2016-12-19] MEDS ORDERED: *HR* Dextrose 50 % in Water (Syg) 50 ML SYRINGE IVP PRN (09:43)
[2016-12-19] MEDS ORDERED: Dextrose Gel 15 GM PO PRN ×2 (09:43)
[2016-12-19] MEDS ORDERED: Ipratropium/Albuterol Neb 3 ML IH PRN (12:00)
[2016-12-19] MEDS: *HR* Morphine 2 MG/ML SYRINGE IVP PRN ×2 (14:45→19:03)
[2016-12-19 15:30] LABS: INR 1.7; Prothrombin Time 18.1 Seconds (9.4-12.1)
[2016-12-19] MEDS: Pantoprazole 40 MG VIAL IVP SCH (16:57)
[2016-12-19] MEDS ORDERED: Pantoprazole 40 MG VIAL IVP SCH (18:00)
[2016-12-19] MEDS: Gabapentin 300 MG CAPSULE PO SCH (21:51)
[2016-12-19] MEDS: Vancomycin 750 MG in D5% in Water 250 ML IVPB SCH (21:52)
[2016-12-20] MEDS: Meropenem 1,000 MG in 0.9 % Sodium Chloride Mini Bag 100 ML IVPB SCH ×4 (00:46→23:28)
[2016-12-20] MEDS: *HR* Morphine 2 MG/ML SYRINGE IVP PRN ×4 (01:46→23:37)
[2016-12-20] MEDS: Pantoprazole 40 MG VIAL IVP SCH ×2 (06:28→18:47)
[2016-12-20] MEDS: Sucralfate 1 GM TABLET PO SCH ×2 (06:28→15:35)
[2016-12-20] MEDS: *HR* Heparin 5,000 UNIT/ML VIAL SQ SCH ×2 (06:28→18:47)
[2016-12-20] MEDS: Budesonide/Formoterol 160/4.5 MDI IH SCH ×2 (07:59→20:26)
[2016-12-20] MEDS: Folic Acid 1 MG TABLET PO SCH (09:40)
[2016-12-20] MEDS: Magnesium Oxide 400 MG TABLET PO SCH ×2 (09:40→21:02)
[2016-12-20 10:19] LABS: Basophils % 0.3 %; Eosinophils # 0.2 K/mcL (0.0-0.6); Eosinophils % 3.8 %; Hematocrit 25.5 % (35.3-44.9); Hemoglobin 8.3 g/dL (11.5-15.4); Immature Granulocytes % 0.5 % (0-4); Immature Platelets 1.7 % (1.1-6.1); Lymphocytes # 1.9 K/mcL (0.6-4.6); Lymphocytes % 30.4 %; Mean Corpuscular HGB Conc 32.5 g/dL (31.6-35.5); Mean Corpuscular Hemoglobin 32.3 pg (28.0-33.3); Mean Corpuscular Volume 99.2 fL (83.0-100.0); Mean Platelet Volume 9.4 fL (9.4-12.4); Monocytes # 0.6 K/mcL (0.0-1.3); Monocytes % 9.5 %; Neutrophils # 3.4 K/mcL (1.6-8.9); Platelet Count 153 K/mcL (140-400); Red Blood Count 2.57 M/mcL (3.82-4.97); Red Cell Distribution Width 14.6 % (11.5-14.5); Segmented Neutrophils % 55.5 %
[2016-12-20 10:31] LABS: BUN/Creatinine Ratio 21 (6-26); Blood Urea Nitrogen 10 mg/dL (7-20); Calcium 7.1 mg/dL (8.6-10.8); Carbon Dioxide 19 mEq/L (19-29); Chloride 111 mEq/L (98-109); Glucose 86 mg/dL (70-99); Osmolality,Calculated 276 (280-300); Potassium 3.2 mEq/L (3.5-4.5); Sodium 134 mEq/L (136-145); eGFR For African Americans > 60 (> 60); eGFR For Non-African Americans > 60 (> 60)
[2016-12-20] MEDS: Vancomycin 750 MG in D5% in Water 250 ML IVPB SCH ×2 (11:17→21:03)
[2016-12-20] MEDS ORDERED: Potassium Chloride Elixir 20 MEQ/15 ML UDC PO ONE (12:51)
--- NOTE | 2016-12-20 14:56 | Internal Med Progress Note ---
Date of Encounter: 12/20/16 Time of Encounter: 11:00 - Assessment and plan (1) Decubitus skin ulcer Current Visit: No Status: Chronic Assessment and plan: Continued wound care. Turning regimen. Qualifiers: Pressure ulcer location: sacral region Pressure ulcer stage: stage 2 Qualified Code(s): L89.152 - Pressure ulcer of sacral region, stage 2 (2) Anemia Current Visit: Yes Status: Acute Assessment and plan: Chronic normocytic anemia. Admitted for hematemesis. Hemoglobin dropped from 11 on admission to 7.4 yesterday. There was a component of hemodilution. Currently hemoglobin is 8.4. We will continue to monitor hemoglobin daily. We will transfuse if hemoglobin below 8 and or signs effects bleeding. Qualifiers: Anemia type: other cause Other causes of anemia: acute posthemorrhagic Qualified Code(s): D62 - Acute posthemorrhagic anemia (3) Hematemesis Current Visit: Yes Status: Acute Assessment and plan: Hematemesis likely secondary to severe erosive esophagitis per EGD report. We will continue with IV Protonix and oral Carafate. Qualifiers: Nausea presence: with nausea Qualified Code(s): K92.0 - Hematemesis; R11.0 - Nausea (4) Obesities, morbid Current Visit: Yes Status: Chronic Assessment and plan: Patient has a BMI of 37.2, morbid obesity likely contributing to her multiple comorbid factors. Patient would benefit from weight loss, diet restrictions and lifestyle modifications to be initiated outpatient. (5) Esophagitis, erosive Current Visit: Yes Status: Acute Assessment and plan: Protonix IV twice a day. Oral Carafate. (6) Osteomyelitis of coccyx Current Visit: Yes Status: Acute Assessment and plan: Patient has known osteomyelitis of the coccyx/sacrum with MRSA, pseudomonas, Enterobacter, Klebsiella grown and wound cultures from November 25. Patient's home medications included Bactrim DS and vancomycin. - We will continue antibiotics to include vancomycin and meropenem according to prior culture sensitivities. (7) DVT prophylaxis Current Visit: Yes Status: Acute Assessment and plan: No sign of active overt bleeding. She was started on heparin while in the ICU. We will continue this for prophylaxis. (8) Generalized edema Current Visit: Yes Status: Acute Assessment and plan: Patient has significant edema of both upper and lower extremities, likely induced by aggressive IV fluid resuscitation. We will treat her with IV Lasix, monitor urine output daily weights and kidney function. - Subjective Interval history: Patient was transferred from the ICU yesterday. Currently she reports generalized weakness, denies chest pain and shortness of breath. Denies abdominal pain nausea and hematemesis. - Constitutional Vitals: Temp Pulse Resp BP Pulse Ox 97.9 F 102 17 91/67 92 12/20/16 05:01 12/20/16 05:01 12/20/16 05:01 12/20/16 05:01 12/20/16 05:01 General appearance: Present: mild distress (with pain), A&O X 3, morbidly obese , answers questions appropriately - Eye Eye exam: Present: PERRL, conjuntiva pink, sclera anicteric Pupils: Present: PERRL - Respiratory Respiratory exam: Present: decreased breath sounds, CTAB. Absent: accessory muscle use, rales, rhonchi, wheezes - Cardiovascular Cardiovascular exam: Present: RRR, +S1, +S2. Absent: diastolic murmur, gallop, rubs, systolic murmur - GI/Abdominal GI/Abdominal exam: Present: normal bowel sounds, soft, no peritoneal signs. Absent: distended, tenderness - Extremities Exam Extremities exam: Present: pedal edema, warm, radial pulses palpable and symmetrical. Absent: calf tenderness, cyanotic Internal Medicine: Result - Labs CBC & Chem 7: 12/20/16 10:12 12/20/16 10:12 Labs: Short CBC 12/20/16 Range/Units 10:12 WBC 6.1 (4.3-11.1) K/mcL Hgb 8.3 L (11.5-15.4) g/dL Hct 25.5 L (35.3-44.9) % Plt Count 153 (140-400) K/mcL Neutrophils # 3.4 (1.6-8.9) K/mcL BMP 12/20/16 10:12 Sodium 134 L Potassium 3.2 L Chloride 111 H Carbon Dioxide 19 BUN 10 Creatinine 0.47 L Glucose 86 Calcium 7.1 L - ABG Interpretation ABG results: PT/INR, D-dimer PT 18.1 Seconds (9.4-12.1) H 12/19/16 14:45 - VTE Documentation of Mechanical Device: Intermittent pneumatic compression device Consult Discharge Plan - Plan Referrals: Renard Spears DO [Primary Care Provider] - (PATIENT IS FROM [facility] NO PCP APPOINTMENT NEEDED)
[2016-12-20] MEDS: Furosemide 20 MG/2 ML VIAL IVP SCH ×2 (15:34→20:55)
[2016-12-20] MEDS: Gabapentin 300 MG CAPSULE PO SCH (21:02)
[2016-12-20] MEDS ORDERED: Vancomycin 1 EACH in D5% in Water 250 ML IVPB SCH (22:00)
[2016-12-20] MEDS ORDERED: Amiodarone Premix 360 MG/200 ML BAG IVC ONE (23:00)
[2016-12-21 04:11] LABS: Basophils % 0.2 %; Eosinophils # 0.2 K/mcL (0.0-0.6); Eosinophils % 3.2 %; Hematocrit 24.4 % (35.3-44.9); Hemoglobin 8.1 g/dL (11.5-15.4); Immature Granulocytes % 0.5 % (0-4); Lymphocytes # 1.8 K/mcL (0.6-4.6); Lymphocytes % 31.1 %; Mean Corpuscular HGB Conc 33.2 g/dL (31.6-35.5); Mean Corpuscular Hemoglobin 32.9 pg (28.0-33.3); Mean Corpuscular Volume 99.2 fL (83.0-100.0); Mean Platelet Volume 9.3 fL (9.4-12.4); Monocytes # 0.6 K/mcL (0.0-1.3); Monocytes % 10.4 %; Neutrophils # 3.2 K/mcL (1.6-8.9); Platelet Count 141 K/mcL (140-400); Red Blood Count 2.46 M/mcL (3.82-4.97); Red Cell Distribution Width 14.4 % (11.5-14.5); Segmented Neutrophils % 54.6 %
[2016-12-21 04:14] LABS: BUN/Creatinine Ratio 21 (6-26); Blood Urea Nitrogen 9 mg/dL (7-20); Calcium 7.1 mg/dL (8.6-10.8); Carbon Dioxide 20 mEq/L (19-29); Chloride 109 mEq/L (98-109); Glucose 93 mg/dL (70-99); Magnesium 1.4 mg/dL (1.6-2.6); Osmolality,Calculated 276 (280-300); Sodium 134 mEq/L (136-145); eGFR For African Americans > 60 (> 60); eGFR For Non-African Americans > 60 (> 60)
[2016-12-21] MEDS: *HR* Heparin 5,000 UNIT/ML VIAL SQ SCH ×2 (05:04→17:12)
[2016-12-21] MEDS: Pantoprazole 40 MG VIAL IVP SCH ×2 (05:04→17:12)
[2016-12-21] MEDS: Amiodarone Premix 360 MG/200 ML BAG IVC SCH ×2 (05:04→17:12)
[2016-12-21] MEDS: Vancomycin 1,000 MG in D5% in Water 250 ML IVPB SCH (05:10)
[2016-12-21] MEDS: Magnesium Sulfate 2 GM in D5% in Water 100 ML IVPB PRN ×2 (06:25→14:43)
[2016-12-21] MEDS: Potassium Chloride 40 MEQ/200 ML BAG IVPB PRN ×2 (06:25→14:43)
[2016-12-21] MEDS: Magnesium Oxide 400 MG TABLET PO SCH ×2 (08:22→21:21)
[2016-12-21] MEDS: Folic Acid 1 MG TABLET PO SCH (08:23)
[2016-12-21] MEDS: Sucralfate 1 GM TABLET PO SCH ×2 (08:23→16:12)
[2016-12-21] MEDS: Furosemide 20 MG/2 ML VIAL IVP SCH (08:24)
[2016-12-21] MEDS: Meropenem 1,000 MG in 0.9 % Sodium Chloride Mini Bag 100 ML IVPB SCH ×2 (08:24→16:12)
--- NOTE | 2016-12-21 08:28 | Venous Imaging Report ---
LE Venous Duplex Patient Name:Mary Renee Order Number:[id number] Procedure Date:12/18/2016 Date:1955ge:61 yrs Gender:Female Location:[facility] Room #: IC08 Head Of Transport Logistics:Radha Gil, RDCS, RVT Referring MD:Juana Rosas DO Reading MD:Morales Levy MD Primary Indications:Swelling of limb Secondary Indications: Impressions: Bilateral lower extremity: normal superficial and deep exam. Recommendations: Preliminary given to pt RN. Findings Venous Duplex Results: Right: Venous imaging of the lower extremity reveals full patency and normal vessel compressibility of the right distal iliac, right common femoral, right superficial femoral, right popliteal, right posterior tibial, right peroneal, right great saphenous and right lesser saphenous. Doppler signals in the evaluated veins were normal. Left: Venous imaging of the lower extremity reveals full patency and normal vessel compressibility of the left distal iliac, left common femoral, left superficial femoral, left popliteal, left posterior tibial, left peroneal, left great saphenous and left lesser saphenous. Doppler signals in the evaluated veins were normal. Prior Study: No prior study available for comparison. Lower Extremity Venous Duplex Side Vein Compress Spontaneous Flow Augment Diameter (cm) Depth (cm) Right Distal Iliac Normal Yes Phasic Yes Right Common Femoral Normal Yes Phasic Yes Right Superficial Femoral Normal Yes Phasic Yes Right Popliteal Normal Yes Phasic Yes Right Posterior Tibial Normal Yes Phasic Yes Right Peroneal Normal Yes Phasic Yes Right Great Saphenous Normal Yes Phasic Yes Right Lesser Saphenous Normal Yes Phasic Yes Left Distal Iliac Normal Yes Phasic Yes Left Common Femoral Normal Yes Phasic Yes Left Superficial Femoral Normal Yes Phasic Yes Left Popliteal Normal Yes Phasic Yes Left Posterior Tibial Normal Yes Phasic Yes Left Peroneal Normal Yes Phasic Yes Left Great Saphenous Normal Yes Phasic Yes Left Lesser Saphenous Normal Yes Phasic Yes Updated by Morales Levy MD on 12/19/2016 4:21:58 PM electronically signed on 12/19/2016 4:22:10 PM with status of Final
--- NOTE | 2016-12-21 08:34 | Electrocardiograph Report ---
[place] [address] Test Date: 2016-12-16 Pat Name: Mary Renee Department: 110 Room: 2A42 Gender: F Clinical Advisor: : [id number] Requested By: Robert Cristobal Order Number: [id number] Reading MD: Zechariah Strickland DO Measurements Intervals [place] Rate: 145 P: 27 WI: 166 QRS: 91 QRSD: 77 T: 78 QT: 397 QTc: 481 Interpretive Statements Possibly 2:1 atrial flutter with rapid ventricular response Low QRS voltage ST-T changes probably due to rate Electronically Signed On 12-20-2016 9:26:12 EDT by Zechariah Strickland DO
[2016-12-21] MEDS ORDERED: Magnesium Sulfate 2 GM in D5% in Water 100 ML IVPB ONE (08:55)
--- NOTE | 2016-12-21 09:22 | Internal Med Progress Note ---
<Leandro Zhou - Last Filed: 12/21/16 14:38> Date of Encounter: 12/21/16 Time of Encounter: 09:20 - Assessment and plan (1) Osteomyelitis of coccyx Current Visit: Yes Status: Acute Assessment and plan: Patient has known osteomyelitis of the coccyx/sacrum with MRSA, pseudomonas, Enterobacter, Klebsiella grown and wound cultures from November 25. Patient's home medications included Bactrim DS and vancomycin. Plan: continue vancomycin and meropenem. (2) Afib Current Visit: Yes Status: Acute Assessment and plan: new onset Afib RVR overnight. Currently on amiodarone gtt Etiology likely secondary to sepsis. last echo 10/13/16 showed LVEF 55%, normal LV size and systolic funciton, indeterminate LV diastolic function, normal RV size and function, no significant valvular dysfunciton, no pulmonary HTN. Plan: continue amiodarone appreciate cardiology recs. Qualifiers: Atrial fibrillation type: unspecified Qualified Code(s): I48.91 - Unspecified atrial fibrillation (3) Anemia Current Visit: Yes Status: Acute Assessment and plan: Chronic normocytic anemia, likely secondary to acute blood loss anemia from hematemesis. We will continue to monitor hemoglobin daily and transfuse as needed. Qualifiers: Anemia type: other cause Other causes of anemia: acute posthemorrhagic Qualified Code(s): D62 - Acute posthemorrhagic anemia (4) Esophagitis, erosive Current Visit: Yes Status: Acute Assessment and plan: continue protonix and carafate. (5) Decubitus skin ulcer Current Visit: No Status: Chronic Assessment and plan: Continued wound care. Turning regimen. Qualifiers: Pressure ulcer location: sacral region Pressure ulcer stage: stage 2 Qualified Code(s): L89.152 - Pressure ulcer of sacral region, stage 2 (6) Hematemesis Current Visit: Yes Status: Acute Assessment and plan: Hematemesis likely secondary to severe erosive esophagitis per EGD report. EGD from 12/17/16 showed severe ischemic ulcerative esophagitis, black looking found near the lower third of the esophagus. plan as above Qualifiers: Nausea presence: with nausea Qualified Code(s): K92.0 - Hematemesis; R11.0 - Nausea (7) Obesities, morbid Current Visit: Yes Status: Chronic Assessment and plan: lifestyle modifications encouraged. (8) Generalized edema Current Visit: Yes Status: Acute Assessment and plan: Patient has significant edema of both upper and lower extremities. continue lasix 20mg IV daily (9) DVT prophylaxis Current Visit: Yes Status: Acute Assessment and plan: heparin SQ - Subjective Interval history: 61 year old female evaluated at bedside. she denies nausea, vomiting, diarrhea, fever, chills, chest pain, shortness of breath. she reports increased pain in her coccyx area. - Constitutional Vitals: Temp Pulse Resp BP Pulse Ox 97.6 F 112 12 95/66 100 12/21/16 07:20 12/21/16 04:00 12/21/16 04:00 12/21/16 04:00 12/21/16 04:00 General appearance: Present: mild distress (with pain), A&O X 3, morbidly obese , answers questions appropriately - Head Head exam: Present: atraumatic, normocephalic - Neck Neck exam general surgery: Present: supple, trachea midline - Respiratory Respiratory exam: Present: decreased breath sounds, wheezes - Cardiovascular Cardiovascular exam: Present: irregular rhythm, tachycardia - GI/Abdominal GI/Abdominal exam: Present: distended, hypoactive bowel sounds, soft, tenderness - Extremities Exam Extremities exam: Present: pedal edema (+2 bilateral pitting edema. ). Absent: cyanotic - Neurological Exam Neurological exam: Present: alert, oriented X3 - Psychiatric Psychiatric exam: Present: normal affect, normal mood Internal Medicine: Result - Labs CBC & Chem 7: 12/21/16 03:49 12/21/16 12:20 Labs: Short CBC 12/20/16 12/21/16 Range/Units 10:12 03:49 WBC 6.1 5.9 (4.3-11.1) K/mcL Hgb 8.3 L 8.1 L (11.5-15.4) g/dL Hct 25.5 L 24.4 L (35.3-44.9) % Plt Count 153 141 (140-400) K/mcL Neutrophils # 3.4 3.2 (1.6-8.9) K/mcL BMP 12/20/16 12/21/16 10:12 03:49 Sodium 134 L 134 L Potassium 3.2 L 3.0 L Chloride 111 H 109 Carbon Dioxide 19 20 BUN 10 9 Creatinine 0.47 L 0.43 L Glucose 86 93 Calcium 7.1 L 7.1 L - ABG Interpretation ABG results: PT/INR, D-dimer PT 18.1 Seconds (9.4-12.1) H 12/19/16 14:45 - VTE Documentation of Mechanical Device: Intermittent pneumatic compression device Consult Discharge Plan - Plan Referrals: Renard Spears DO [Primary Care Provider] - ([facility] NO [facility] APPOINTMENT NEEDED) <Robert Cristobal - Last Filed: 12/21/16 19:05> Date of Encounter: 12/21/16 - Assessment and plan (1) Decubitus skin ulcer Current Visit: No Status: Chronic Qualifiers: Pressure ulcer location: sacral region Pressure ulcer stage: stage 2 Qualified Code(s): L89.152 - Pressure ulcer of sacral region, stage 2 (2) Anemia Current Visit: Yes Status: Acute Qualifiers: Anemia type: other cause Other causes of anemia: acute posthemorrhagic Qualified Code(s): D62 - Acute posthemorrhagic anemia (3) Hematemesis Current Visit: Yes Status: Acute Qualifiers: Nausea presence: with nausea Qualified Code(s): K92.0 - Hematemesis; R11.0 - Nausea (4) Obesities, morbid Current Visit: Yes Status: Chronic (5) Esophagitis, erosive Current Visit: Yes Status: Acute (6) Osteomyelitis of coccyx Current Visit: Yes Status: Acute (7) DVT prophylaxis Current Visit: Yes Status: Acute (8) Generalized edema Current Visit: Yes Status: Acute - Constitutional Vitals: Temp Pulse Resp BP Pulse Ox 97.7 F 112 16 87/68 96 12/21/16 15:30 12/21/16 17:00 12/21/16 17:00 12/21/16 17:00 12/21/16 17:00 Internal Medicine: Result - Labs CBC & Chem 7: 12/21/16 03:49 12/21/16 12:20 Labs: Short CBC 12/21/16 Range/Units 03:49 WBC 5.9 (4.3-11.1) K/mcL Hgb 8.1 L (11.5-15.4) g/dL Hct 24.4 L (35.3-44.9) % Plt Count 141 (140-400) K/mcL Neutrophils # 3.2 (1.6-8.9) K/mcL BMP 12/21/16 12/21/16 12/21/16 03:49 12:20 12:20 Sodium 134 L 133 L Potassium 3.0 L 3.3 L 3.3 L Chloride 109 107 Carbon Dioxide 20 22 BUN 9 7 Creatinine 0.43 L 0.44 L Glucose 93 97 Calcium 7.1 L 7.0 L - ABG Interpretation ABG results: PT/INR, D-dimer PT 18.1 Seconds (9.4-12.1) H 12/19/16 14:45 - Attending Attestation I examined this patient and my medical decision-making was reviewed with the Resident Physician, Dr. Zhou. I agree with the documented findings, disposition and treatment plan as described except to the extent set forth below. My findings are summarized below: Patient's heart rate is tachycardic and regular. Abdomen is soft, nontender nondistended. Lung sounds are diminished at both bases. Plan: I have reviewed her telemetry and EKGs and I do not find any evidence of A. fib. Currently she is in sinus tachycardia after she was started on amiodarone drip. We will obtain an echocardiogram and consult cardiology.
[2016-12-21] MEDS: Budesonide/Formoterol 160/4.5 MDI IH SCH ×2 (10:00→20:04)
[2016-12-21] MEDS: *HR* HYDROcodone/Acet 5/325 mg TABLET PO PRN ×3 (13:23→21:32)
[2016-12-21 13:53] LABS: Magnesium 1.6 mg/dL (1.6-2.6); Potassium 3.3 mEq/L (3.5-4.5)
[2016-12-21 13:57] LABS: BUN/Creatinine Ratio 16 (6-26); Blood Urea Nitrogen 7 mg/dL (7-20); Carbon Dioxide 22 mEq/L (19-29); Chloride 107 mEq/L (98-109); Glucose 97 mg/dL (70-99); Osmolality,Calculated 274 (280-300); Potassium 3.3 mEq/L (3.5-4.5); Sodium 133 mEq/L (136-145); eGFR For African Americans > 60 (> 60); eGFR For Non-African Americans > 60 (> 60)
[2016-12-21] MEDS: *HR* Morphine 2 MG/ML SYRINGE IVP PRN (16:12)
--- NOTE | 2016-12-21 17:40 | Cardiothoracic Consult Note ---
Date of Encounter: 12/21/16 Time of Encounter: 17:31 Assessment and Plan (1) Transient atrial fibrillation Current Visit: Yes Status: Acute There was a reported episode of Atrial fibrillation over night. The patient was started on Amiodorone. Continue with amiodorone iv tonight and transition to oral medications tomorrow. After reviewing the EKG, rhythm strips, and monitor in the patient looks to currently be in sinus tachycardia. (2) Anemia Current Visit: Yes Status: Acute Patient appears to have some chronic anemia but did have an acute drop in her hemoglobin with her hematemsis and GI symptoms. EGD showed sever ischemic ulcerative esophagitis. The most recent hemoglobin was 8.1 this is currently being managed by the hospitalist. Qualifiers: Anemia type: other cause Other causes of anemia: acute posthemorrhagic Qualified Code(s): D62 - Acute posthemorrhagic anemia (3) Esophagitis, erosive Current Visit: Yes Status: Acute Patient had 4 episodes of hematemesis and had an EGD done on 12/17/16 this showed sever ischemic ulcerative esophagitis, black looking in lower 3rd of the esophagus. Patient is currently getting Protonix and Carafate. GI has been consulted on this patient. (4) Hematemesis Current Visit: Yes Status: Acute Patient had 4 episodes of hematemesis and had an EGD done on 12/17/16 this showed sever ischemic ulcerative esophagitis, black looking in lower 3rd of the esophagus. Patient is currently getting Protonix and Carafate. GI has been consulted on this patient. Qualifiers: Nausea presence: with nausea Qualified Code(s): K92.0 - Hematemesis; R11.0 - Nausea (5) Osteomyelitis of coccyx Current Visit: Yes Status: Acute Patient has known osteomyelitis of the coccyx/sacrum from a large ulcer. This is currently being treated with vancomycin and meropenem. The hospitalist is currently managing this. (6) Generalized edema Current Visit: Yes Status: Acute Patient has 2+ pitting edema in the upper and lower extremities. The upper and lower extremities are both weeping. The patient is currently receiving lasix. This currently being managed by the hospitalist. (7) Obesities, morbid Current Visit: Yes Status: Chronic The patient is significantly over weight and would benefit from weight loss and lifestyle modifications. (8) COPD (chronic obstructive pulmonary disease) Current Visit: No Status: Chronic Patient has a known history of COPD. It does not appear that this is an exacerbation of her COPD. This is currently being managed by the hospitalist. Qualifiers: COPD type: emphysema Emphysema type: unspecified Qualified Code(s): J43.9 - Emphysema, unspecified (9) DVT prophylaxis Current Visit: Yes Status: Acute Patient is getting herapin sub q for dvt prophylaxis. This is currently being managed by the hospitalist. - History of Present Illness Consult date: 12/21/16 Requesting physician: Leandro Zhou Consult reason: New onset Afib RVR Chief complaint: Tachycardia History of present illness: Ms. Renee is a 61 year old female that was admitted to the hospital for hematemesis. Patient states that she had back surgery in August and has been at [facility] for rehab. She states that she has been non ambulatory for over 100 days. On 12/15/16 she developed coffee ground emsis and abdominal pain and was brought to the hospital. On 12/17/16 an EGD was performed and show severe ischemic ulcerative esophagitis, black looking in the lowe 3rd of the esophagus. Cardiology was consulted for new onset atrial fibrillation. Patient denies any cardiac history, arrhythmia, chest pain, palpitations, shortness of breath, catheterization or stress tests. Pain does state that she is have pain all over her body and has significant swelling in her upper and lower extremities that are weeping. Patient states that she has developed a large ulcer on her bottom that is causing her a significant amount of pain. Past Med Surg Social Fam HX - Past Medical History Medical history: asthma, COPD, hyperlipidemia, hypertension, other Psychiatric history: no psych history - Past Surgical History Surgical History: knee replacement, orthopedic, other, other - Social History Smoking Status: Former smoker Smokeless Tobacco Status: No Alcohol use: none Drug use: none - Family History Mother Living Status: Hx Family Cardiac Disorders: Yes (VT) Hx Family Respiratory Disorders: Yes (COPD) Hx Family Cancer: No Hx Family GI Disorders: No Hx Family Endocrine Disorder: No Hx Family Neuromuscular Disorders: No Hx Family Neurologic Disorders: No Hx Family HEENT Disorders: No Hx Family Autoimmune Disorders: No Father Hx Family Cardiac Disorders: Yes (CAD) Medications and Allergies Albuterol Sulfate [Ventolin Hfa] 2 puff IH Q4H PRN 07/03/16 [History] Gabapentin [Neurontin] 300 mg PO HS 07/03/16 [History] Ipratropium/Albuterol Neb [Duoneb] 3 ml IH Q4H PRN 07/03/16 [History] Docusate [Colace] 100 mg PO BID 10/12/16 [History] Nystatin POWDER [Nystop] 1 appl TP DAILY PRN 10/12/16 [History] Polyethylene Glycol 3350 [Gavilax] 17 gm PO DAILY 10/12/16 [History] HYDROcodone/Acet 10/325 mg [[place] 10-325 mg] 1 tab PO Q4HR PRN #20 tab 10/16/16 [Rx] Fluticasone/Salmeterol [Advair 500-50 Diskus] 2 puff IH BID 11/20/16 [History] Folic Acid 1 mg PO DAILY 11/20/16 [History] Multivitamin with Minerals [Myvitalife] 1 each PO DAILY 11/20/16 [History] FentaNYL PATCH [Duragesic] 12 mcg TD Q72H #10 patch.td72 11/22/16 [Rx] Magnesium Oxide [Mag-Ox] 400 mg PO BID tab 11/22/16 [Rx] Amino Acids/Protein Hydrolys [Pro-Stat Awc Liquid Packet] 30 ml PO BID 12/16/16 [History] Guaifenesin [Mucinex] 600 mg PO BID 12/16/16 [History] Lactobacillus [Culturelle] 1 each PO BID 12/16/16 [History] Mag Hydrox/Al Hydrox/Simeth [Antacid Suspension] 15 ml PO Q4H PRN 12/16/16 [ History] Metoprolol [Lopressor] 25 mg PO BID 12/16/16 [History] Mirtazapine 7.5 mg PO DAILY 12/16/16 [History] Ondansetron HCl [Zofran] 4 mg PO Q4H PRN 12/16/16 [History] Ondansetron [Zofran] 4 mg IV Q4H PRN 12/16/16 [History] Sulfamethoxazole/Trimeth DS [Bactrim DS] 1 each PO BID 12/16/16 [History] Vancomycin HCl in Dextrose 5 % [Vancomycin 750 mg/250 ml-D5w] 750 mg IV Q12H [History] 3 Allergy/AdvReac Type Severity Reaction Status Date / Time meloxicam [From Mobic] Allergy Hives Verified 11/20/16 16:10 Oxycodone [From Percocet] Allergy Hives Verified 11/20/16 16:10 tramadol AdvReac See Verified 11/20/16 16:10 Comments All Systems Review: A 10-system review of systems was performed and is negative for pertinent findings except as documented above in the HPI. - Constitutional Constitutional: fatigue - Cardiovascular Cardiovascular: leg edema, no chest pain at rest, no chest pain with exertion, no diaphoresis, no dyspnea at rest, no irregular heart rhythm, no palpitations - Respiratory Respiratory: no dyspnea - Gastrointestinal Gastrointestinal: abdominal pain, hematemesis - Musculoskeletal Musculoskeletal: muscle weakness Physical Examination Vital Signs, Last 4 Hours Temp 12/21/16 15:30 97.7 F General: Conversant HEENT: Atraumatic, Normocephaly, Trachea midline Neck: No JVD Cardiac: Normal S1 and S2, Other (Regular but tachycardic ) Neuro: Alert and responsive, No focal deficits noted, Motor nerves intact, Sensory nerves intact Abdomen: Soft, Non-tender Skin: Other (Skin is weeping ) Extremities: No Clubbing, No Cyanosis, Normal Pulses, Other (2+ pitting edema in the upper and lower extremities ) Results 12/21/16 03:49 12/21/16 12:20 Lab Results, Last 24 hours 12/21/16 12/21/16 12/21/16 03:49 03:49 12:20 WBC 5.9 Hgb 8.1 L Hct 24.4 L Plt Count 141 Sodium 134 L 133 L Potassium 3.0 L 3.3 L Chloride 109 107 Carbon Dioxide 20 22 BUN 9 7 Creatinine 0.43 L 0.44 L Glucose 93 97 Calcium 7.1 L 7.0 L Magnesium 1.4 L 12/21/16 12:20 WBC Hgb Hct Plt Count Sodium Potassium 3.3 L Chloride Carbon Dioxide BUN Creatinine Glucose Calcium Magnesium 1.6 - Imaging Echo: report reviewed - EKG Interpretation EKG results: personally reviewed, other (Sinus tachycardia) Consult Discharge Plan - Plan Referrals: Renard Spears DO [Primary Care Provider] - (PATIENT IS FROM [facility] NO PCP APPOINTMENT NEEDED) - Attending Attestation Pt seen and examined independently, chart reviewed, discussed with pts at bedside and with ICU team, essentially agree with above, my evaluation as follows: CC: Vomiting coffee ground emesis HPI: Pt admitted with several episodes of hematemisis in ECF, associated with nausea and diaphoresis. Pt underwent urgent EGD, found to have erosive esohphagitis. Pt also complains of severe pain in tailbone, evaluation revealed large pressure ulcer with osteomyelitis of coccyx. She has been started on dual anitibiotic coverage. Last pm pt reporting low back and coccyxgeal pain, noted to have episodes of A fib with RVR and rapid SVT on tele , moved to unit for closer monitoring. An amiodarone drip was initiated with reversion to normal sinus rhythm and sinus tachycardia. She denies chest pain, pressure or shortness of breath. Tele demonstrates sinus tach in the low hundreds, she is completely symptomatic. PE: Agree with above. IMP/Plan 1. A fib with RVR reported, unable to locate tele from those hours yet, now in sinus tach, heart rates in low hundreds, asymptomatic. Appears needs sinus tach due to pain, anemia, ect, would not try to supress heart rate further at this point. Will obtain echo to eval for possible endocarditis with known osteomyelitis, LV Function and subsegmental wall motion abnormalities. Will continue IV amiodarone overnight, probably change to orals in AM pending above result. 2. Osteomyelitis of Coccyx, multiple organisms cultured, suspect at least mild sepsis, improving on dual antibiotic tx. 3. Acute on chronic anemia, secondary to acute blood loss from erosive esophagitis. 4. Decubitis ulcer of Coccyx, ICU team managing. 5. Cervical disc disease, with complaint of numbness and phantom limb pain post cervical neck surgery at [facility] last spring, continue supportive care.
[2016-12-21] MEDS ORDERED: *HR* FentaNYL (PF) 100 MCG/2 ML VIAL IVP PRN (18:42)
[2016-12-21] MEDS: Gabapentin 300 MG CAPSULE PO SCH (21:21)
[2016-12-22] MEDS: Meropenem 1,000 MG in 0.9 % Sodium Chloride Mini Bag 100 ML IVPB SCH ×3 (00:20→16:10)
[2016-12-22] MEDS: *HR* HYDROcodone/Acet 5/325 mg TABLET PO PRN ×3 (02:00→12:49)
[2016-12-22 03:00] LABS: Basophils % 0.3 %; Eosinophils # 0.3 K/mcL (0.0-0.6); Eosinophils % 4.1 %; Hematocrit 26.5 % (35.3-44.9); Hemoglobin 8.8 g/dL (11.5-15.4); Immature Granulocytes % 0.4 % (0-4); Lymphocytes # 2.7 K/mcL (0.6-4.6); Lymphocytes % 38.7 %; Mean Corpuscular HGB Conc 33.2 g/dL (31.6-35.5); Mean Corpuscular Volume 99.3 fL (83.0-100.0); Mean Platelet Volume 9.6 fL (9.4-12.4); Monocytes # 0.8 K/mcL (0.0-1.3); Monocytes % 11.3 %; Neutrophils # 3.1 K/mcL (1.6-8.9); Platelet Count 177 K/mcL (140-400); Red Blood Count 2.67 M/mcL (3.82-4.97); Red Cell Distribution Width 14.6 % (11.5-14.5); Segmented Neutrophils % 45.2 %
[2016-12-22 03:11] LABS: BUN/Creatinine Ratio 16 (6-26); Blood Urea Nitrogen 7 mg/dL (7-20); Carbon Dioxide 19 mEq/L (19-29); Chloride 108 mEq/L (98-109); Glucose 86 mg/dL (70-99); Magnesium 1.8 mg/dL (1.6-2.6); Osmolality,Calculated 275 (280-300); Potassium 3.8 mEq/L (3.5-4.5); Sodium 134 mEq/L (136-145); eGFR For African Americans > 60 (> 60); eGFR For Non-African Americans > 60 (> 60)
[2016-12-22] MEDS: Vancomycin 1,000 MG in D5% in Water 250 ML IVPB SCH (04:54)
[2016-12-22] MEDS: Pantoprazole 40 MG VIAL IVP SCH ×2 (04:55→17:44)
[2016-12-22] MEDS: *HR* Heparin 5,000 UNIT/ML VIAL SQ SCH ×2 (04:55→17:43)
[2016-12-22] MEDS: Amiodarone Premix 360 MG/200 ML BAG IVC SCH (05:20)
[2016-12-22] MEDS: Magnesium Sulfate 2 GM in D5% in Water 100 ML IVPB PRN ×2 (06:20→16:11)
[2016-12-22] MEDS: Potassium Chloride 40 MEQ/200 ML BAG IVPB PRN ×4 (07:55→17:30)
[2016-12-22] MEDS: Sucralfate 1 GM TABLET PO SCH ×2 (07:56→16:11)
[2016-12-22] MEDS: Budesonide/Formoterol 160/4.5 MDI IH SCH ×2 (08:14→21:49)
--- NOTE | 2016-12-22 08:57 | Internal Med Progress Note ---
<LarsusAnaroxanne - Last Filed: 12/22/16 13:15> Date of Encounter: 12/22/16 Time of Encounter: 08:55 - Assessment and plan (1) Osteomyelitis of coccyx Current Visit: Yes Status: Acute Assessment and plan: Patient has known osteomyelitis of the coccyx/sacrum with MRSA, pseudomonas, Enterobacter, Klebsiella grown and wound cultures from November 25. Patient's home medications included Bactrim DS and vancomycin. urine and blood cultures showed no growth. Plan: continue vancomycin and meropenem. (2) Afib Current Visit: Yes Status: Acute Assessment and plan: new onset Afib RVR overnight. Currently on amiodarone gtt Etiology likely secondary to sepsis. last echo 10/13/16 showed LVEF 55%, normal LV size and systolic funciton, indeterminate LV diastolic function, normal RV size and function, no significant valvular dysfunciton, no pulmonary HTN. Plan: continue amiodarone appreciate cardiology recs, likely plan to transition to oral some point today. have ordered EV echo to look for possible endocarditis in setting of osteomyelitis, per cardiology. Qualifiers: Atrial fibrillation type: unspecified Qualified Code(s): I48.91 - Unspecified atrial fibrillation (3) Anemia Current Visit: Yes Status: Acute Assessment and plan: Chronic normocytic anemia, likely secondary to acute blood loss anemia from hematemesis. We will continue to monitor hemoglobin daily and transfuse as needed. Qualifiers: Anemia type: other cause Other causes of anemia: acute posthemorrhagic Qualified Code(s): D62 - Acute posthemorrhagic anemia (4) Esophagitis, erosive Current Visit: Yes Status: Acute Assessment and plan: continue protonix and carafate. (5) Decubitus skin ulcer Current Visit: No Status: Chronic Assessment and plan: Continued wound care. Turning regimen. Qualifiers: Pressure ulcer location: sacral region Pressure ulcer stage: stage 2 Qualified Code(s): L89.152 - Pressure ulcer of sacral region, stage 2 (6) Hematemesis Current Visit: Yes Status: Acute Assessment and plan: Hematemesis likely secondary to severe erosive esophagitis per EGD report. EGD from 12/17/16 showed severe ischemic ulcerative esophagitis, black looking found near the lower third of the esophagus. plan as above Qualifiers: Nausea presence: with nausea Qualified Code(s): K92.0 - Hematemesis; R11.0 - Nausea (7) Obesities, morbid Current Visit: Yes Status: Chronic Assessment and plan: lifestyle modifications encouraged. (8) Generalized edema Current Visit: Yes Status: Acute Assessment and plan: Patient has significant edema of both upper and lower extremities. Plan: IV lasi 20mg BID with albumin (9) DVT prophylaxis Current Visit: Yes Status: Acute Assessment and plan: heparin SQ - Subjective Interval history: 61 year old female evaluated at bedside. she denies nausea, vomiting, diarrhea, fever, chills, chest pain, shortness of breath. she reports pain in her coccyx area. - Constitutional Vitals: Temp Pulse Resp BP Pulse Ox 97.5 F L 103 14 86/69 99 12/22/16 07:41 12/22/16 07:41 12/22/16 07:41 12/22/16 07:41 12/22/16 07:41 General appearance: Present: mild distress (with pain), A&O X 3, morbidly obese , answers questions appropriately - Head Head exam: Present: atraumatic, normocephalic - Neck Neck exam general surgery: Present: supple, trachea midline - Respiratory Respiratory exam: Present: rales - Cardiovascular Cardiovascular exam: Present: tachycardia - GI/Abdominal GI/Abdominal exam: Present: distended, normal bowel sounds. Absent: tenderness - Extremities Exam Extremities exam: Present: pedal edema. Absent: cyanotic Additional comments: +2 pitting edema on arms and both legs - Neurological Exam Neurological exam: Present: alert, oriented X3, no focal deficits. Absent: pronater drift, facial droop, speech deficit - Skin Additional comments: fluid coming out of edematous areas on arms and legs. Internal Medicine: Result - Labs CBC & Chem 7: 12/22/16 02:50 12/22/16 12:20 Labs: Short CBC 12/22/16 Range/Units 02:50 WBC 6.9 (4.3-11.1) K/mcL Hgb 8.8 L (11.5-15.4) g/dL Hct 26.5 L (35.3-44.9) % Plt Count 177 (140-400) K/mcL Neutrophils # 3.1 (1.6-8.9) K/mcL BMP 12/21/16 12/21/16 12/21/16 12:20 12:20 22:00 Sodium 133 L Potassium 3.3 L 3.3 L 3.9 Chloride 107 Carbon Dioxide 22 BUN 7 Creatinine 0.44 L Glucose 97 Calcium 7.0 L 12/22/16 02:50 Sodium 134 L Potassium 3.8 Chloride 108 Carbon Dioxide 19 BUN 7 Creatinine 0.45 L Glucose 86 Calcium 7.0 L - ABG Interpretation ABG results: PT/INR, D-dimer PT 18.1 Seconds (9.4-12.1) H 12/19/16 14:45 - Impressions Impressions Chest X-Ray 12/21/16 20:35 IMPRESSION: Growing, moderate, bilateral pleural effusions, right greater than left with associated airspace disease, which may reflect atelectasis or pneumonia. Continued imaging follow-up is recommended. D/ / Luis Billingsley / Luis Billingsley Interpreting Provider: Luis Billingsley - VTE Documentation of Mechanical Device: Intermittent pneumatic compression device Consult Discharge Plan - Plan Referrals: Renard Spears DO [Primary Care Provider] - (PATIENT IS FROM [facility] NO PCP APPOINTMENT NEEDED) <Robert Cristobal - Last Filed: 12/23/16 07:46> Date of Encounter: 12/22/16 - Assessment and plan (1) Decubitus skin ulcer Current Visit: No Status: Chronic Qualifiers: Pressure ulcer location: sacral region Pressure ulcer stage: stage 2 Qualified Code(s): L89.152 - Pressure ulcer of sacral region, stage 2 (2) Anemia Current Visit: Yes Status: Acute Qualifiers: Anemia type: other cause Other causes of anemia: acute posthemorrhagic Qualified Code(s): D62 - Acute posthemorrhagic anemia (3) Hematemesis Current Visit: Yes Status: Acute Qualifiers: Nausea presence: with nausea Qualified Code(s): K92.0 - Hematemesis; R11.0 - Nausea (4) Obesities, morbid Current Visit: Yes Status: Chronic (5) Esophagitis, erosive Current Visit: Yes Status: Acute (6) Osteomyelitis of coccyx Current Visit: Yes Status: Acute (7) DVT prophylaxis Current Visit: Yes Status: Acute (8) Generalized edema Current Visit: Yes Status: Acute - Constitutional Vitals: Temp Pulse Resp BP Pulse Ox 98.5 F 87 15 103/73 98 12/23/16 07:16 12/23/16 07:16 12/23/16 07:16 12/23/16 07:16 12/23/16 07:16 Internal Medicine: Result - Labs CBC & Chem 7: 12/23/16 04:00 12/23/16 04:00 Labs: Short CBC 12/23/16 Range/Units 04:00 WBC 3.6 L (4.3-11.1) K/mcL Hgb 6.7 L D (11.5-15.4) g/dL Hct 19.7 L (35.3-44.9) % Plt Count 126 L (140-400) K/mcL Neutrophils # 1.6 (1.6-8.9) K/mcL BMP 12/22/16 12/22/16 12/23/16 12:20 22:30 04:00 Sodium 133 L 135 L Potassium 3.9 3.4 L 3.1 L Chloride 105 106 Carbon Dioxide 21 22 BUN 7 5 L Creatinine 0.48 L 0.42 L Glucose 95 76 Calcium 7.5 L 7.5 L Urine 12/22/16 Range/Units 17:30 Urine Color Yellow (Yellow) Urine Clarity Clear (Clear) Urine pH 6.0 (5.0-8.0) pH Units Ur Specific Maxwell 1.018 (1.010-1.025) Urine Protein Negative (Neg-Trace) mg/dL Urine Glucose (UA) Normal (Normal) mg/dL - ABG Interpretation ABG results: PT/INR, D-dimer PT 18.1 Seconds (9.4-12.1) H 12/19/16 14:45 - Attending Attestation I examined this patient and my medical decision-making was reviewed with the Resident Physician, Dr. Zhou. I agree with the documented findings, disposition and treatment plan as described except to the extent set forth below. I have independently obtained history and examined the patient and my findings are summarized below: Patient is in no acute distress, asleep and easily arousable. Heart is tachycardic and regular S1 and S2. Lungs sounds are diminished. Abdomen is soft and nontender. Plan: Continue IV antibiotics. Obtain echocardiogram per cardiology. Consult ID. We will consult IR for bone biopsy per ID recommendations.
[2016-12-22] MEDS ORDERED: Furosemide 20 MG/2 ML VIAL IVP SCH (09:00)
[2016-12-22] MEDS: Folic Acid 1 MG TABLET PO SCH (09:52)
[2016-12-22] MEDS: Magnesium Oxide 400 MG TABLET PO SCH ×2 (09:53→21:24)
[2016-12-22] MEDS ORDERED: Albumin 25% 25gram/100mL 25 GM/100 ML IV.SOLN ONE (10:44)
[2016-12-22] MEDS: Albumin 25% 25gram/100mL 25 GM/100 ML IV.SOLN IVPB SCH (11:40)
[2016-12-22 12:41] LABS: Ionized Calcium 1.11 mmol/L (1.15-1.35)
[2016-12-22 12:51] LABS: BUN/Creatinine Ratio 15 (6-26); Blood Urea Nitrogen 7 mg/dL (7-20); Calcium 7.5 mg/dL (8.6-10.8); Carbon Dioxide 21 mEq/L (19-29); Chloride 105 mEq/L (98-109); Glucose 95 mg/dL (70-99); Magnesium 1.9 mg/dL (1.6-2.6); Osmolality,Calculated 274 (280-300); Phosphorous 1.4 mg/dL (2.3-4.7); Potassium 3.9 mEq/L (3.5-4.5); Sodium 133 mEq/L (136-145); eGFR For African Americans > 60 (> 60); eGFR For Non-African Americans > 60 (> 60)
--- NOTE | 2016-12-22 14:09 | Cardiology Progress Note ---
<Hiram Swain - Last Filed: 12/22/16 15:27> Date of Encounter: 12/22/16 Time of Encounter: 14:06 Assessment and Plan (1) Transient atrial fibrillation Current Visit: Yes Status: Acute There was a reported episode of atrial fibrillation two nights ago. The patient was then started on amiodorone yesterday. I was not able to find any rhythm strip or EKG that showed atrial fibrillation. The amiodorone can be discontinued at this time. The patient appeared to be in sinus rhythm on the monitor when she was examined. We are awaiting the results of the patients Echocardiogram for evaluation of possible endocarditis with known osteomyelitis and her LV function. (2) Atrial flutter Current Visit: Yes Status: Acute Patient had an episode of atrial flutter this morning around 0814. It is unclear exactly how long this lasted but after reviewing the telemetry strip it appears that the maximum time it could have lasted was 7 minutes. Qualifiers: Atrial flutter type: unspecified Qualified Code(s): I48.92 - Unspecified atrial flutter (3) Tachycardia Current Visit: No Status: Resolved The patient has remained in sinus tachycardia. This is likely due to the patient being in pain and her anemia. We will not try to suppress her rate any further at this time. (4) Anemia Current Visit: Yes Status: Acute Patient appears to have some chronic anemia but did have an acute drop in her hemoglobin likely related to her hematemesis and GI symptoms. Her hemaglobin has improve over night. The most recent hemoglobin was 8.8 up from 8.1. EGD showed severe ischemic ulcerative esophagitis. This is currently being managed by the hospitalist. Qualifiers: Anemia type: other cause Other causes of anemia: acute posthemorrhagic Qualified Code(s): D62 - Acute posthemorrhagic anemia (5) Esophagitis, erosive Current Visit: Yes Status: Acute Patient had 4 episodes of hematemesis and had an EGD done on 12/17/16 this showed severe ischemic ulcerative esophagitis, black looking in lower 3rd of esophagus. Patient is currently getting Protonix and Carafate. GI has been consulted on this patient. (6) Hematemesis Current Visit: Yes Status: Acute Patient had 4 episodes of hematemesis and had an EGD done on 12/17/16 this showed severe ischemic ulcerative esophagitis, black looking in lower 3rd of esophagus. Patient is currently getting Protonix and Carafate. GI has been consulted on this patient. Qualifiers: Nausea presence: with nausea Qualified Code(s): K92.0 - Hematemesis; R11.0 - Nausea (7) Osteomyelitis of coccyx Current Visit: Yes Status: Acute Patient has known osteomyelitis of the coccyx/sacrum from a large ulcer. This is currentl being treated with vancomycin and meropenem. This is currently being managed by the hospitalist. (8) Generalized edema Current Visit: Yes Status: Acute The patient has 2+ pitting edema in the upper and lower extremities bilaterally. The upper and lower extremities are both weeping. The patient is currently receiving lasix. The patient's I&O were net positive 358 yesterday and 590 so far today. The patients Cr is currently 0.48 so there is room to increase the patients diuretic. We will add on Zaroxyln 5mg daily for additional diueresis. (9) Obesities, morbid Current Visit: Yes Status: Chronic The patient is significantly over weight and would benefit from weight loss and lifestyle modifications. (10) COPD (chronic obstructive pulmonary disease) Current Visit: No Status: Chronic The patient has a known history of COPD. It does not appear that this is an exacerbation of her COPD. This is currently being managed by the hospitalist. Qualifiers: COPD type: emphysema Emphysema type: unspecified Qualified Code(s): J43.9 - Emphysema, unspecified (11) DVT prophylaxis Current Visit: Yes Status: Acute The patient is getting heparin sub q for dvt prophylaxis. This is currently being managed by the hospitalist. Discussion w patient/family: The assessment and plan as outlined above was discussed with the patient and/or family members who expressed understanding and agreement. All questions were answered. Thank you for involving us in the care of your patient. Please call with any questions. Subjective Principal diagnosis: Hypotension Interval history: Patient states that she is still having pain in her back where she has the large ulcer and osteomyelitits. She states that she feels like she needs more pain medications. Patient denies any chest pain, shortness of breath, palpitations last night or today. She states that she has no heart complaints at this time. Patient denies any abdominal pain at this time. Patient does state that she still has a lot of swelling in bilateral upper and lower extremities as well as a lot of soft stools. The main complaint for the patient is she is still having a lot of pain in her back. Objective Vital Signs, Last 4 Hours Temp Pulse Resp BP Pulse Ox 12/22/16 12:35 98.4 F 150 18 97/68 100 General: Conversant, No Apparent Distress HEENT: Atraumatic, Normocephaly Neck: No JVD, Normal carotid pulses Cardiac: Normal S1 and S2, No Murmur, Other (Tachycardic but regular.) Lungs: Normal Breath Sounds, No Wheeze, Rales, Rhonchi Neuro: Alert and responsive, No focal deficits noted Abdomen: Soft, Non-Tender Extremities: No Clubbing, No Cyanosis, Other (2+ edema in bilateral upper and lower extremities.) Results 12/22/16 02:50 12/22/16 12:20 Lab Results 12/21/16 12/22/16 12/22/16 22:00 02:50 02:50 WBC 6.9 Hgb 8.8 L Hct 26.5 L Plt Count 177 Sodium 134 L Potassium 3.9 3.8 Chloride 108 Carbon Dioxide 19 BUN 7 Creatinine 0.45 L Glucose 86 Calcium 7.0 L Magnesium 1.8 12/22/16 12:20 WBC Hgb Hct Plt Count Sodium 133 L Potassium 3.9 Chloride 105 Carbon Dioxide 21 BUN 7 Creatinine 0.48 L Glucose 95 Calcium 7.5 L Magnesium 1.9 - Imaging and Cardiology Chest Xray: report reviewed - EKG Interpretation EKG results cardiology: personally reviewed, other (sinus tachycardia) - VTE Documentation of Mechanical Device: Intermittent pneumatic compression device Consult Discharge Plan - Plan Referrals: Renard Spears DO [Primary Care Provider] - (PATIENT IS FROM [facility] NO PCP APPOINTMENT NEEDED) <Reid Canas - Last Filed: 12/24/16 14:06> Date of Encounter: 12/22/16 Time of Encounter: 16:15 (Pt seen and examined independently) Assessment and Plan (1) Transient atrial fibrillation Current Visit: Yes Status: Acute Transient A fib, with rapid ventricular response, started on Amiodarone, no reoccurrence of arrhythmia on tele, DC amiodarone. (2) Anemia Current Visit: Yes Status: Acute Acute on chronic anemia, acute blood loss due to GI bleed, with EGD demonstrating severe ischemic ulcerative esophagitis. Qualifiers: Anemia type: other cause Other causes of anemia: acute posthemorrhagic Qualified Code(s): D62 - Acute posthemorrhagic anemia (3) Esophagitis, erosive Current Visit: Yes Status: Acute Resolution on PPI and carafate, H&H stable (4) Hematemesis Current Visit: Yes Status: Acute Qualifiers: Nausea presence: with nausea Qualified Code(s): K92.0 - Hematemesis; R11.0 - Nausea (5) Osteomyelitis of coccyx Current Visit: Yes Status: Acute Severe low back/coccygeal pain due to osteomyelites, pain meds not controlling pain, will discuss with primary service. (6) Generalized edema Current Visit: Yes Status: Acute Continued diffuse edema, multifactorial, increase diuresis with Zarolyn 5 mg q d in addition to IV lasix, monitor I&O (7) Obesities, morbid Current Visit: Yes Status: Chronic (8) COPD (chronic obstructive pulmonary disease) Current Visit: No Status: Chronic Qualifiers: COPD type: emphysema Emphysema type: unspecified Qualified Code(s): J43.9 - Emphysema, unspecified (9) DVT prophylaxis Current Visit: Yes Status: Acute Discussion w patient/family: The assessment and plan as outlined above was discussed with the patient and/or family members who expressed understanding and agreement. All questions were answered. Thank you for involving us in the care of your patient. Please call with any questions. Objective Vital Signs, Last 4 Hours Temp Pulse Resp BP Pulse Ox 12/22/16 12:35 98.4 F 150 18 97/68 100 Results 12/24/16 05:44 12/24/16 05:44 Lab Results 12/21/16 12/22/16 12/22/16 22:00 02:50 02:50 WBC 6.9 Hgb 8.8 L Hct 26.5 L Plt Count 177 Sodium 134 L Potassium 3.9 3.8 Chloride 108 Carbon Dioxide 19 BUN 7 Creatinine 0.45 L Glucose 86 Calcium 7.0 L Magnesium 1.8 12/22/16 12:20 WBC Hgb Hct Plt Count Sodium 133 L Potassium 3.9 Chloride 105 Carbon Dioxide 21 BUN 7 Creatinine 0.48 L Glucose 95 Calcium 7.5 L Magnesium 1.9
[2016-12-22] MEDS: metOLazone 5 MG TABLET PO SCH (16:10)
[2016-12-22] MEDS: *HR* FentaNYL (PF) 100 MCG/2 ML VIAL IVP PRN (16:39)
[2016-12-22] MEDS: Sodium Phosphate 30 MMOL in D5% in Water 100 ML IVPB PRN (17:31)
[2016-12-22 18:06] LABS: Bilirubin,Urine Negative (Negative); Blood,Urine Moderate (Negative); Clarity,Urine Clear (Clear); Color,Urine Yellow (Yellow); Glucose,Urine (UA) Normal (Normal); Ketones,Urine Negative (Negative); Leukocyte Esterase,Urine Moderate (Negative); Nitrite,Urine Negative (Negative); Protein,Urine Negative (Neg-Trace); Specific Gravity,Urine 1.018 (1.010-1.025); Urobilinogen,Urine Normal (Normal)
[2016-12-22 18:09] LABS: Bacteria,Urine None Seen per hpf (None-Few); RBC,Urine 15-30 per hpf (0-3); Squamous Epithelial Cell,Urine Many per lpf (None-Few)
[2016-12-22 18:23] LABS: Hyaline Casts,Urine Few per lpf (None-Few)
[2016-12-22] MEDS: Gabapentin 300 MG CAPSULE PO SCH (21:24)
[2016-12-22] MEDS: *HR* HYDROcodone/Acet 10/325 mg TABLET PO PRN (21:32)
[2016-12-22 22:55] LABS: Magnesium 1.9 mg/dL (1.6-2.6); Potassium 3.4 mEq/L (3.5-4.5)
[2016-12-23] MEDS: Albumin 25% 25gram/100mL 25 GM/100 ML IV.SOLN IVPB SCH ×3 (00:43→19:30)
[2016-12-23] MEDS: Meropenem 1,000 MG in 0.9 % Sodium Chloride Mini Bag 100 ML IVPB SCH ×4 (00:44→23:25)
[2016-12-23] MEDS: *HR* FentaNYL (PF) 100 MCG/2 ML VIAL IVP PRN ×3 (00:44→15:03)
[2016-12-23] MEDS: Furosemide 20 MG/2 ML VIAL IVP SCH ×3 (03:01→20:46)
[2016-12-23 04:05] LABS: Basophils % 0.3 %; Eosinophils # 0.1 K/mcL (0.0-0.6); Eosinophils % 3.6 %; Hematocrit 19.7 % (35.3-44.9); Hemoglobin 6.7 g/dL (11.5-15.4); Immature Granulocytes % 0.3 % (0-4); Lymphocytes # 1.5 K/mcL (0.6-4.6); Lymphocytes % 42.6 %; Mean Platelet Volume 9.1 fL (9.4-12.4); Monocytes # 0.4 K/mcL (0.0-1.3); Monocytes % 10.1 %; Platelet Count 126 K/mcL (140-400); Red Blood Count 2.03 M/mcL (3.82-4.97); Red Cell Distribution Width 14.6 % (11.5-14.5); Segmented Neutrophils % 43.1 %
[2016-12-23 04:13] LABS: Neutrophils # 1.6 K/mcL (1.6-8.9)
[2016-12-23 04:23] LABS: BUN/Creatinine Ratio 12 (6-26); Calcium 7.5 mg/dL (8.6-10.8); Carbon Dioxide 22 mEq/L (19-29); Chloride 106 mEq/L (98-109); Glucose 76 mg/dL (70-99); Osmolality,Calculated 276 (280-300); Potassium 3.1 mEq/L (3.5-4.5); Sodium 135 mEq/L (136-145); eGFR For African Americans > 60 (> 60); eGFR For Non-African Americans > 60 (> 60)
[2016-12-23 04:26] LABS: Blood Urea Nitrogen 5 mg/dL (7-20); Phosphorous 2.9 mg/dL (2.3-4.7)
[2016-12-23 04:28] LABS: Platelet Estimate Normal (Normal); Reactive Lymphocytes Present (Not Present)
[2016-12-23 05:05] LABS: Ionized Calcium 1.08 mmol/L (1.15-1.35)
[2016-12-23] MEDS: Pantoprazole 40 MG VIAL IVP SCH ×2 (05:11→17:56)
[2016-12-23] MEDS: Magnesium Sulfate 2 GM in D5% in Water 100 ML IVPB PRN (05:11)
[2016-12-23] MEDS: Vancomycin 1,000 MG in D5% in Water 250 ML IVPB SCH (05:12)
[2016-12-23] MEDS: *HR* Heparin 5,000 UNIT/ML VIAL SQ SCH (05:21)
[2016-12-23] MEDS: Potassium Chloride 40 MEQ/200 ML BAG IVPB PRN ×3 (05:22→16:47)
[2016-12-23] MEDS: Sodium Phosphate 30 MMOL in D5% in Water 100 ML IVPB PRN (07:47)
[2016-12-23] MEDS: Budesonide/Formoterol 160/4.5 MDI IH SCH ×2 (08:16→19:36)
[2016-12-23] MEDS ORDERED: Calcium Gluconate 1,000 MG in D5% in Water 100 ML IVPB PRN (09:16)
[2016-12-23] MEDS ORDERED: *HR* Morphine 2 MG/ML SYRINGE IVP PRN (09:30)
--- NOTE | 2016-12-23 10:17 | Cardiology Progress Note ---
<Hiram Swain - Last Filed: 12/23/16 15:40> Date of Encounter: 12/23/16 Time of Encounter: 10:14 Assessment and Plan (1) Transient atrial fibrillation Current Visit: Yes Status: Acute There was a reported episode of atrial fibrillation three nights ago. The patient was then started on amiodorone but was discontinued yesterday. I was not able to find any rhythm strip or EKG that showed atrial fibrillation. The patient appeared to be in sinus rhythm on the monitor when she was examined. The telemetry strip today is difficult to read due to there being a lot of artifact. We are awaiting the results of the patients Echocardiogram for evaluation of possible endocarditis with known osteomyelitis and her LV function. (2) Atrial flutter Current Visit: Yes Status: Acute Patient had an episode of atrial flutter yesterday morning around 0814. It is unclear exactly how long this lasted but after reviewing the telemetry strip it appears that the maximum time it could have lasted was 7 minutes. The telemetry strip today is difficult to read due to there being a lot of artifact. Qualifiers: Atrial flutter type: unspecified Qualified Code(s): I48.92 - Unspecified atrial flutter (3) Tachycardia Current Visit: No Status: Resolved The patient has remained in sinus tachycardia. This is likely due to the patient being in pain and her anemia. We will not try to suppress her rate any further at this time. (4) Anemia Current Visit: Yes Status: Acute Patient appears to have some chronic anemia but did have an acute drop in her hemoglobin this was likely related to her hematemesis and GI symptoms. Her hemoglobin has decreased over night. The most recent hemoglobin was 6.7 down from 8.8. EGD showed severe ischemic ulcerative esophagitis. It looks like one unit of blood has been ordered for the patient. This is currently being managed by the hospitalist. Qualifiers: Anemia type: other cause Other causes of anemia: acute posthemorrhagic Qualified Code(s): D62 - Acute posthemorrhagic anemia (5) Esophagitis, erosive Current Visit: Yes Status: Acute Patient had 4 episodes of hematemesis and had an EGD done on 12/17/16 this showed severe ischemic ulcerative esophagitis, black looking in lower 3rd of esophagus. Patient is currently getting Protonix and Carafate. GI has been consulted on this patient. (6) Hematemesis Current Visit: Yes Status: Acute Patient had 4 episodes of hematemesis and had an EGD done on 12/17/16 this showed severe ischemic ulcerative esophagitis, black looking in lower 3rd of esophagus. Patient is currently getting Protonix and Carafate. GI has been consulted on this patient. Qualifiers: Nausea presence: with nausea Qualified Code(s): K92.0 - Hematemesis; R11.0 - Nausea (7) Osteomyelitis of coccyx Current Visit: Yes Status: Acute Patient has known osteomyelitis of the coccyx/sacrum from a large ulcer. This is currently being treated with vancomycin and meropenem. The patient currently has fentanyl and norco ordered for her pain associated with this. CT biposy of deep bone was ordered for today, per radiology report the patient has refused to have the biopsy done. Infectious disease has also been consulted. This is currently being managed by the hospitalist. (8) Generalized edema Current Visit: Yes Status: Acute The patient has 2+ pitting edema in the upper and lower extremities bilaterally. The upper and lower extremities are both weeping. The patient is currently receiving lasix. The patient's I&O were net positive 348 yesterday and -780 so far today. The patients Cr is currently 0.42. Continue Zaroxyln 5mg daily for additional diueresis. (9) Obesities, morbid Current Visit: Yes Status: Chronic The patient is significantly over weight and would benefit from weight loss and lifestyle modifications. (10) Hypokalemia Current Visit: Yes Status: Acute The patients most recent potassium was 3.1 which is down from 3.4 yesterday. The patient is currently on electrolyte protocol. This is currently being managed by the hospitalist. (11) COPD (chronic obstructive pulmonary disease) Current Visit: No Status: Chronic The patient has a known history of COPD. It does not appear that this is an exacerbation of her COPD. This is currently being managed by the hospitalist. Qualifiers: COPD type: emphysema Emphysema type: unspecified Qualified Code(s): J43.9 - Emphysema, unspecified (12) DVT prophylaxis Current Visit: Yes Status: Acute The patient sub q heparin has been discontinued and has been place on EPCD for DVT prophylaxis. This is currently being managed by the hospitalist. Discussion w patient/family: The assessment and plan as outlined above was discussed with the patient and/or family members who expressed understanding and agreement. All questions were answered. Thank you for involving us in the care of your patient. Please call with any questions. Subjective Principal diagnosis: Tachycardia Interval history: Patient states that she is still having pain in her back where she has the large ulcer and osteomyelitits. She states that it does feel a little bit better today because she was given some fentanyl. Patient denies any chest pain , shortness of breath, palpitations last night or today. She states that she has no heart complaints at this time. Patient denies any abdominal pain at this time. Patient does state that she still has a lot of swelling in bilateral upper and lower extremities as well as a lot of soft stools. The main complaint for this patient is that she is uncomfortable and still having back pain. Objective Vital Signs, Last 4 Hours Temp Pulse Resp BP Pulse Ox 12/23/16 07:16 98.5 F 87 15 103/73 98 General: Conversant, No Apparent Distress HEENT: Atraumatic, Normocephaly Neck: No JVD, Normal carotid pulses Cardiac: Normal S1 and S2, No Murmur, Other (Regular but tachycardic ) Lungs: Normal Breath Sounds, No Wheeze, Rales, Rhonchi Neuro: Alert and responsive, No focal deficits noted Abdomen: Soft, Non-Tender Skin: No rashes noted on visualized skin Extremities: No Clubbing, No Cyanosis, Other (2+ pitting edema in the upper and lower extremities with weeping) Results 12/23/16 04:00 12/23/16 04:00 Lab Results 12/22/16 12/22/16 12/23/16 12:20 22:30 04:00 WBC 3.6 L Hgb 6.7 L D Hct 19.7 L Plt Count 126 L Sodium 133 L Potassium 3.9 3.4 L Chloride 105 Carbon Dioxide 21 BUN 7 Creatinine 0.48 L Glucose 95 Calcium 7.5 L Magnesium 1.9 1.9 12/23/16 04:00 WBC Hgb Hct Plt Count Sodium 135 L Potassium 3.1 L Chloride 106 Carbon Dioxide 22 BUN 5 L Creatinine 0.42 L Glucose 76 Calcium 7.5 L Magnesium 2.0 - Imaging and Cardiology Chest Xray: report reviewed Echo: pending - EKG Interpretation EKG results cardiology: personally reviewed (Sinus tachycardia), other (Sinus Tachycardia) - VTE Documentation of Mechanical Device: Intermittent pneumatic compression device Consult Discharge Plan - Plan Referrals: Renard Spears DO [Primary Care Provider] - (PATIENT IS FROM [facility] NO PCP APPOINTMENT NEEDED) <Reid Canas - Last Filed: 12/24/16 14:09> Date of Encounter: 12/23/16 Time of Encounter: 15:05 (PT seen and examined, chart reviewed, essentially agree with findings, my evaluation below. ) Assessment and Plan (1) Transient atrial fibrillation Current Visit: Yes Status: Acute No reoccurrece of A fib off aminodarone, will continue to monitor (2) Anemia Current Visit: Yes Status: Acute Qualifiers: Anemia type: other cause Other causes of anemia: acute posthemorrhagic Qualified Code(s): D62 - Acute posthemorrhagic anemia (3) Esophagitis, erosive Current Visit: Yes Status: Acute (4) Hematemesis Current Visit: Yes Status: Acute Qualifiers: Nausea presence: with nausea Qualified Code(s): K92.0 - Hematemesis; R11.0 - Nausea (5) Osteomyelitis of coccyx Current Visit: Yes Status: Acute (6) Generalized edema Current Visit: Yes Status: Acute (7) Obesities, morbid Current Visit: Yes Status: Chronic (8) COPD (chronic obstructive pulmonary disease) Current Visit: No Status: Chronic Qualifiers: COPD type: emphysema Emphysema type: unspecified Qualified Code(s): J43.9 - Emphysema, unspecified (9) DVT prophylaxis Current Visit: Yes Status: Acute Discussion w patient/family: The assessment and plan as outlined above was discussed with the patient and/or family members who expressed understanding and agreement. All questions were answered. Thank you for involving us in the care of your patient. Please call with any questions. Objective Vital Signs, Last 4 Hours Temp Pulse Resp BP Pulse Ox 12/24/16 11:26 98.2 F 95 16 104/58 92 Results 12/24/16 05:44 12/24/16 05:44 Lab Results 12/23/16 12/23/16 12/24/16 15:15 20:40 05:44 WBC 4.6 Hgb 8.6 L D Hct 24.8 L Plt Count 134 L Sodium Potassium 3.0 L 2.9 L Chloride Carbon Dioxide BUN Creatinine Glucose Calcium 12/24/16 05:44 WBC Hgb Hct Plt Count Sodium 136 Potassium 3.1 L Chloride 101 Carbon Dioxide 27 BUN 3 L Creatinine 0.43 L Glucose 70 Calcium 8.0 L
--- NOTE | 2016-12-23 11:32 | Internal Med Progress Note ---
<LarsLeandro gardner - Last Filed: 12/23/16 11:29> Date of Encounter: 12/23/16 Time of Encounter: 11:30 - Assessment and plan (1) Osteomyelitis of coccyx Current Visit: Yes Status: Acute Assessment and plan: Patient has known osteomyelitis of the coccyx/sacrum with MRSA, pseudomonas, Enterobacter, Klebsiella grown and wound cultures from November 25. Patient's home medications included Bactrim DS and vancomycin. urine and blood cultures showed no growth. Plan: continue vancomycin and meropenem. consult to ID, kathi recs. patient has refused bone biopsy this morning. Have consulted palliative care to discuss extermination inspector goals of care. (2) Afib Current Visit: Yes Status: Acute Assessment and plan: transient Afib? amildarone gtt has been discontinued. Etiology likely secondary to sepsis. last echo 10/13/16 showed LVEF 55%, normal LV size and systolic funciton, indeterminate LV diastolic function, normal RV size and function, no significant valvular dysfunciton, no pulmonary HTN. Plan: appreciate cardiology rec echo still pending. Qualifiers: Atrial fibrillation type: unspecified Qualified Code(s): I48.91 - Unspecified atrial fibrillation (3) Anemia Current Visit: Yes Status: Acute Assessment and plan: Chronic normocytic anemia, likely secondary to acute blood loss anemia from hematemesis. Plan: Hg 6.7 this am transfusing one unit. will re check H/H Qualifiers: Anemia type: other cause Other causes of anemia: acute posthemorrhagic Qualified Code(s): D62 - Acute posthemorrhagic anemia (4) Esophagitis, erosive Current Visit: Yes Status: Acute Assessment and plan: continue protonix and carafate. (5) Decubitus skin ulcer Current Visit: No Status: Chronic Assessment and plan: Continued wound care. Turning regimen. Qualifiers: Pressure ulcer location: sacral region Pressure ulcer stage: stage 2 Qualified Code(s): L89.152 - Pressure ulcer of sacral region, stage 2 (6) Hematemesis Current Visit: Yes Status: Acute Assessment and plan: Hematemesis likely secondary to severe erosive esophagitis per EGD report. EGD from 12/17/16 showed severe ischemic ulcerative esophagitis, black looking found near the lower third of the esophagus. plan as above Qualifiers: Nausea presence: with nausea Qualified Code(s): K92.0 - Hematemesis; R11.0 - Nausea (7) Obesities, morbid Current Visit: Yes Status: Chronic Assessment and plan: lifestyle modifications encouraged. (8) Generalized edema Current Visit: Yes Status: Acute Assessment and plan: Patient has significant edema of both upper and lower extremities. Plan: IV lasix 20mg BID with albumin metolazone added by cardiology. (9) DVT prophylaxis Current Visit: Yes Status: Acute Assessment and plan: EPCDs - Subjective Interval history: 61 year old female evaluated at bedside. she denies nausea, vomiting, diarrhea, fever, chills, chest pain, shortness of breath. she reports pain in her coccyx area. - Constitutional Vitals: Temp Pulse Resp BP Pulse Ox 98.5 F 87 15 103/73 98 12/23/16 07:16 12/23/16 07:16 12/23/16 07:16 12/23/16 07:16 12/23/16 07:16 General appearance: Present: mild distress (with pain), A&O X 3, morbidly obese , answers questions appropriately - Head Head exam: Present: atraumatic, normocephalic - Neck Neck exam general surgery: Present: supple, trachea midline - Respiratory Respiratory exam: Present: rales, rhonchi - Cardiovascular Cardiovascular exam: Present: tachycardia - GI/Abdominal GI/Abdominal exam: Present: distended, normal bowel sounds, soft, tenderness - Extremities Exam Additional comments: +3 bilateral lower extremity pitting edema with seeping of fluid. +2 bilateral upper extremity pitting edema with seeping fluid. significant bilateral upper extremity pitting edema. - Neurological Exam Neurological exam: Present: alert, oriented X3, no focal deficits - Psychiatric Psychiatric exam: Present: normal affect, normal mood - Skin Additional comments: leaking fluid from edema. significant bruising noted on arms bilaterally. Internal Medicine: Result - Labs CBC & Chem 7: 12/23/16 04:00 12/23/16 04:00 Labs: Short CBC 12/23/16 Range/Units 04:00 WBC 3.6 L (4.3-11.1) K/mcL Hgb 6.7 L D (11.5-15.4) g/dL Hct 19.7 L (35.3-44.9) % Plt Count 126 L (140-400) K/mcL Neutrophils # 1.6 (1.6-8.9) K/mcL BMP 12/22/16 12/22/16 12/23/16 12:20 22:30 04:00 Sodium 133 L 135 L Potassium 3.9 3.4 L 3.1 L Chloride 105 106 Carbon Dioxide 21 22 BUN 7 5 L Creatinine 0.48 L 0.42 L Glucose 95 76 Calcium 7.5 L 7.5 L Urine 12/22/16 Range/Units 17:30 Urine Color Yellow (Yellow) Urine Clarity Clear (Clear) Urine pH 6.0 (5.0-8.0) pH Units Ur Specific [place] 1.018 (1.010-1.025) Urine Protein Negative (Neg-Trace) mg/dL Urine Glucose (UA) Normal (Normal) mg/dL - ABG Interpretation ABG results: PT/INR, D-dimer PT 18.1 Seconds (9.4-12.1) H 12/19/16 14:45 - VTE Documentation of Mechanical Device: Intermittent pneumatic compression device Consult Discharge Plan - Plan Referrals: Renard Spears DO [Primary Care Provider] - (PATIENT IS FROM [facility] NO PCP APPOINTMENT NEEDED) <Robert Cristobal - Last Filed: 12/23/16 18:00> Date of Encounter: 12/23/16 - Assessment and plan (1) Decubitus skin ulcer Current Visit: No Status: Chronic Qualifiers: Pressure ulcer location: sacral region Pressure ulcer stage: stage 2 Qualified Code(s): L89.152 - Pressure ulcer of sacral region, stage 2 (2) Anemia Current Visit: Yes Status: Acute Qualifiers: Anemia type: other cause Other causes of anemia: acute posthemorrhagic Qualified Code(s): D62 - Acute posthemorrhagic anemia (3) Hematemesis Current Visit: Yes Status: Acute Qualifiers: Nausea presence: with nausea Qualified Code(s): K92.0 - Hematemesis; R11.0 - Nausea (4) Obesities, morbid Current Visit: Yes Status: Chronic (5) Esophagitis, erosive Current Visit: Yes Status: Acute (6) Osteomyelitis of coccyx Current Visit: Yes Status: Acute (7) DVT prophylaxis Current Visit: Yes Status: Acute (8) Generalized edema Current Visit: Yes Status: Acute - Constitutional Vitals: Temp Pulse Resp BP Pulse Ox 99.1 F 112 16 126/76 100 09/27/17 17:02 12/23/16 17:02 12/23/16 17:02 12/23/16 17:02 12/23/16 17:02 Internal Medicine: Result - Labs CBC & Chem 7: 12/23/16 04:00 12/23/16 15:15 Labs: Short CBC 12/23/16 Range/Units 04:00 WBC 3.6 L (4.3-11.1) K/mcL Hgb 6.7 L D (11.5-15.4) g/dL Hct 19.7 L (35.3-44.9) % Plt Count 126 L (140-400) K/mcL Neutrophils # 1.6 (1.6-8.9) K/mcL BMP 12/22/16 12/23/16 12/23/16 22:30 04:00 15:15 Sodium 135 L Potassium 3.4 L 3.1 L 3.0 L Chloride 106 Carbon Dioxide 22 BUN 5 L Creatinine 0.42 L Glucose 76 Calcium 7.5 L Urine 12/22/16 Range/Units 17:30 Urine Color Yellow (Yellow) Urine Clarity Clear (Clear) Urine pH 6.0 (5.0-8.0) pH Units Ur Specific [place] 1.018 (1.010-1.025) Urine Protein Negative (Neg-Trace) mg/dL Urine Glucose (UA) Normal (Normal) mg/dL - ABG Interpretation ABG results: PT/INR, D-dimer PT 18.1 Seconds (9.4-12.1) H 12/19/16 14:45 - Impressions Impressions Echocardiogram 12/22/16 13:18 Impressions: LVEF 60-65%. Normal left ventricular size and systolic function. There is evidence of mild diastolic dysfunction of the left ventricle. Normal right ventricular size and function. No significant valvular dysfunction - not all valves were well visualized. Suboptimal TR gradient to estimate RVSP. Left Ventricular Wall Motion: Rest Echo Findings All wall segments showed normal motion. Findings: Study Quality * Technically challenging due to clinical status. ECG Findings * Sinus tachycardia, heart rate low 100s. Aorta * Normally sized aortic root. Left Ventricle * LVEF 60-65%. * Normal LV chamber size, wall thickness and function. * Mild left ventricular diastolic dysfunction. Aortic Valve * No aortic regurgitation. * No aortic stenosis. * Not well visualized. Mitral Valve * Normal mitral valve structure. * No mitral regurgitation. * No mitral stenosis. Tricuspid Valve * Normal tricuspid valve structure. * Trace tricuspid regurgitation. Pulmonic Valve * Pulmonic valve not well visualized. * Suboptimal Doppler signal. Pulmonary Artery * Pulmonary artery not well visualized. Right Ventricle * Normal right ventricular structure and function. Left Atrium * Normal left atrial size. Right Atrium * Normal right atrial size. Pericardium * There is no pericardial effusion present. Interatrial Septum * Interatrial septum not well evaluated. IVC * The IVC is not well evaluated. Bone Biopsy CT 12/23/16 00:00 IMPRESSION: Evidence of cellulitis with soft tissue thickening and induration as well as skin ulceration in the tissues posterior to the inferior coccyx. No obvious bony destructive changes. The patient refused a biopsy procedure. D/ / 12/23/2016 11:52:25 Antonia Arnold MD / [facility] Interpreting Provider: Antonia Arnold MD - Attending Attestation I examined this patient and my medical decision-making was reviewed with the Resident Physician, Dr. Zhou. I agree with the documented findings, disposition and treatment plan as described except to the extent set forth below. I have independently obtained history and examined the patient and my findings are summarized below: On exam she is in no distress awake alert oriented heart is tachycardic and regular S1-S2 lungs are generally clear. Skin exam reveals an unstageable 3 cm diameter sacral ulcer. There is minimal discharge and small amount of surrounding erythema.
[2016-12-23] MEDS: Folic Acid 1 MG TABLET PO SCH (11:42)
[2016-12-23] MEDS: metOLazone 5 MG TABLET PO SCH (11:42)
[2016-12-23] MEDS: Magnesium Oxide 400 MG TABLET PO SCH ×2 (11:42→20:45)
[2016-12-23] MEDS: *HR* HYDROcodone/Acet 10/325 mg TABLET PO PRN ×3 (11:45→23:30)
[2016-12-23] MEDS: Sucralfate 1 GM TABLET PO SCH ×2 (13:37→15:01)
--- NOTE | 2016-12-23 14:35 | Palliative - Consult Note ---
Date of Encounter: 12/23/16 Time of Encounter: 12:45 - Assessment and Plan (1) Pain Current Visit: Yes Status: Acute Assessment and plan: I feel this is due to her sacral ulcer. This is where the pain seems to be centered. The pain medications appear to be effective would not make changes in these final decisions made regarding the bone biopsy. You current medications. (2) Counseling regarding goals of care Current Visit: Yes Status: Acute Assessment and plan: After long discussion with patient CODE STATUS changed from full code to DNR CCA. Term intubation is okay no trach no pain. Artery and goals of care patient has been advanced directives is the medical part power of tax associate attorney. These are not on the chart but the family is bringing them in. In any case, patient does confirm that her is her medical power of tax associate attorney. Her overall goal is to be treated for the erosive esophagitis and get the bleeding stopped. Then she would like to have the venous ulcer and the probable infection in the sacrum treated. Like to continue with rehabilitation and she would like to walk again. She was interested in changing her CODE STATUS she is still interested in very aggressive care. Issue with regard to the bone to the bone biopsy was a miscommunication. Please see below. (3) Esophagitis, erosive Current Visit: Yes Status: Acute Assessment and plan: And per hospitalist team gastroenterology has seen the patient. Did an EGD please see the EGD results for I and things. (4) Osteomyelitis of coccyx Current Visit: Yes Status: Acute Assessment and plan: Probable osteomyelitis of the coccyx however the patient's ESR is only 14. As thus far all been negative and no wound cultures are recorded here. She follows with Dr. Reyes and BRANDON see who the family identifies as an infectious disease specialist. Infectious disease here recommended a bone marrow biopsy which the patient declined this morning. She felt that she had not been given enough information and therefore declined the test after further discussion the patient is okay with having that test done. For I have discussed the case at length with the treatment team, however they are not sure that the test is absolutely necessary. Therefore recommended to them not to get the test until they are absently certain it is necessary as this was the patient's primary concern. If the test is deemed truly necessary, she is willing to go through with it but would like to have some premedication. He concerned about how much is going to hurt. Again, she does not wish to have the test done unless it is deemed absolutely necessary. The plan for further consultation and discussion is left with the hospitalist team. Palliative-CN HPI - Data of Consult Patient: new to practice Requesting Physician: Robert Cristobal MD Primary Care Provider: Renard Spears, DO - Consult Narrative Palliative Care/Comfort Measures: Palliative care History of present illness: Ms. Renee is a 61 year old female With a history of back problems pain radiating down her legs that resulted in a urge redone at [facility] earlier this year. Just prior to the surgery the patient states that she had trouble with numbness from her feet up through her shoulders. After the surgery she was having a distinct difficulty with gripping and both hands. He was evaluated at [facility] by neurology as well as neurosurgery and no reason for this numbness and weakness in the hands was found. However with physical therapy according to the patient and family this has been getting better. She also developed a sacral ulcer and this became infected and now it is felt the patient has osteomyelitis of the sacrum. She has been on antibiotics and actually came in on vancomycin IV. This is being managed by a Dr. Reyes from [facility]. She describes the pain in her behind as a deep extremely achy pain in her up to a 10 over 10. It is worse with movement and better with rest. What actually brought her into the hospital however was while she was at [facility] for her rehabilitation and her IV antibiotics he started having trouble with vomiting of blood. She states that this happened the night prior to admission 3 times they did not check it according to the patient mother next morning they did check it saw that it was blood and sent her to the hospital. Patient was quite upset as she told them during the night that it was blood. She is being currently worked up for hematemesis and workup has resulted in doses of erosive esophagitis is felt to be secondary to ischemia on treatment now. There are watching H&H's. She has also had problems with tachycardia. She continues to be treated for his skin ulcer as well as possible osteomyelitis. Of note patient's ESR on admission was only 14... Internal medicine asked for a consult from infectious disease infectious disease requested a biopsy of the bone in the medical record there was discussion of a wound culture, however I do not find any results of that. Patient refused the biopsy this morning as she did not feel that she understood why it was being done. And therefore palliative care was consulted to discuss goals of care with the patient. Please see the assessment and plan. Patient's pain is being pretty well handled now with the fentanyl that she is getting, and the pain is primarily in the area of the ulcers. Is not radiating and is worse with movement better with rest. At its worse it to 10 over 10. CC: Robert Cristobal MD Hematemesis Past Med Surg Social Fam HX - Past Medical History Medical history: asthma, COPD, hyperlipidemia, hypertension, other Psychiatric history: no psych history - Past Surgical History Surgical History: knee replacement, orthopedic, other, other - Social History Smoking Status: Former smoker Smokeless Tobacco Status: No Alcohol use: none Drug use: none - Family History Mother Living Status: Hx Family Cardiac Disorders: Yes (NE) Hx Family Respiratory Disorders: Yes (COPD) Hx Family Cancer: No Hx Family GI Disorders: No Hx Family Endocrine Disorder: No Hx Family Neuromuscular Disorders: No Hx Family Neurologic Disorders: No Hx Family HEENT Disorders: No Hx Family Autoimmune Disorders: No Father Hx Family Cardiac Disorders: Yes (CAD) Medications and Allergies Albuterol Sulfate [Ventolin Hfa] 2 puff IH Q4H PRN 07/03/16 [History] Gabapentin [Neurontin] 300 mg PO HS 07/03/16 [History] Ipratropium/Albuterol Neb [Duoneb] 3 ml IH Q4H PRN 07/03/16 [History] Docusate [Colace] 100 mg PO BID 10/12/16 [History] Nystatin POWDER [Nystop] 1 appl TP DAILY PRN 10/12/16 [History] Polyethylene Glycol 3350 [Gavilax] 17 gm PO DAILY 10/12/16 [History] HYDROcodone/Acet 10/325 mg [[place] 10-325 mg] 1 tab PO Q4HR PRN #20 tab 10/16/16 [Rx] Fluticasone/Salmeterol [Advair 500-50 Diskus] 2 puff IH BID 11/20/16 [History] Folic Acid 1 mg PO DAILY 11/20/16 [History] Multivitamin with Minerals [Myvitalife] 1 each PO DAILY 11/20/16 [History] FentaNYL PATCH [Duragesic] 12 mcg TD Q72H #10 patch.td72 11/22/16 [Rx] Magnesium Oxide [Mag-Ox] 400 mg PO BID tab 11/22/16 [Rx] Amino Acids/Protein Hydrolys [Pro-Stat Awc Liquid Packet] 30 ml PO BID 12/16/16 [History] Guaifenesin [Mucinex] 600 mg PO BID 12/16/16 [History] Lactobacillus [Culturelle] 1 each PO BID 12/16/16 [History] Mag Hydrox/Al Hydrox/Simeth [Antacid Suspension] 15 ml PO Q4H PRN 12/16/16 [ History] Metoprolol [Lopressor] 25 mg PO BID 12/16/16 [History] Mirtazapine 7.5 mg PO DAILY 12/16/16 [History] Ondansetron HCl [Zofran] 4 mg PO Q4H PRN 12/16/16 [History] Ondansetron [Zofran] 4 mg IV Q4H PRN 12/16/16 [History] Sulfamethoxazole/Trimeth DS [Bactrim DS] 1 each PO BID 12/16/16 [History] Vancomycin HCl in Dextrose 5 % [Vancomycin 750 mg/250 ml-D5w] 750 mg IV Q12H [History] 3 Allergy/AdvReac Type Severity Reaction Status Date / Time meloxicam [From Mobic] Allergy Hives Verified 11/20/16 16:10 Oxycodone [From Percocet] Allergy Hives Verified 11/20/16 16:10 tramadol AdvReac See Verified 11/20/16 16:10 Comments - Constitutional Constitutional ROS PAL: decreased appetite (Slight), no chills, no fatigue - EENT Eyes: no discharge, no pain Ears: no ear discharge, no ear pain Ears, nose, mouth, throat: no facial pain, no hoarseness, no lip swelling - Cardiovascular Cardiovascular ROS: palpitations, no chest pain, no chest pain at rest, no chest pain with activity - Gastrointestinal Gastrointestinal: no constipation, no nausea, no vomiting - Genitourinary Palliative ROS female: no urinary frequency, no urinary hesitancy, no urinary incontinence - Musculoskeletal Musculoskeletal ROS IM: back pain, no muscle weakness - Integumentary ROS Integumentary: skin pain, skin ulcer, sores - Neurological Neurological ROS: focal weakness, numbness, weakness, no confusion, no convulsions - Psychiatric Psychiatric general PM: no anxiety, no depression, no difficulty concentrating, no homicidal ideation, no suicidal ideation - Endocrine Endocrine IM: other (No thyroid or diabetic problems.) Palliative Care-Exam - Constitutional Vitals: Temp Pulse Resp BP Pulse Ox 98.7 F 114 16 111/82 100 12/23/16 11:50 12/23/16 11:50 12/23/16 11:50 12/23/16 11:50 12/23/16 11:50 General appearance: Present: morbidly obese, no acute distress - Head Head Exam: Present: atraumatic, normal inspection - Eye Eye exam: Present: EOMI, normal appearance - ENT ENT exam: Present: mucous membranes moist, normal oropharynx - Neck Neck exam: Present: normal inspection - Respiratory Respiratory exam: Present: decreased breath sounds, rhonchi - Cardiovascular Cardiovascular exam: Present: irregular rhythm (Slightly irregular), tachycardia - GI/Abdominal Exam GI/Abdominal exam: Present: distended, normal bowel sounds, soft. Absent: tenderness - Catheter Type: Urethral (Evans) - Extremities Exam Extremities exam: Present: pedal edema (Weeping edema is noted in both upper and lower extremities.). Absent: normal inspection, tenderness - Neurological Exam Neurological exam: Present: alert, motor sensory deficit (Handgrips are somewhat weak but fairly symmetric, has focal difficulty with point discrimination in her feet, and feels circumferential pressure.), oriented X3. Absent: facial droop, speech deficit - Psychiatric Psychiatric exam: Present: normal affect, normal mood. Absent: agitated, anxious, flat affect, homicidal ideation, suicidal ideation - Skin Skin exam: Present: warm. Absent: dry (Weeping lesions are noted in both arms and legs.) Internal Medicine - CN: Reslt - Labs CBC & Chem 7: 12/23/16 04:00 12/23/16 04:00 Labs: Short CBC 12/23/16 Range/Units 04:00 WBC 3.6 L (4.3-11.1) K/mcL Hgb 6.7 L D (11.5-15.4) g/dL Hct 19.7 L (35.3-44.9) % Plt Count 126 L (140-400) K/mcL Neutrophils # 1.6 (1.6-8.9) K/mcL BMP 12/22/16 12/23/16 22:30 04:00 Sodium 135 L Potassium 3.4 L 3.1 L Chloride 106 Carbon Dioxide 22 BUN 5 L Creatinine 0.42 L Glucose 76 Calcium 7.5 L Urine 12/22/16 Range/Units 17:30 Urine Color Yellow (Yellow) Urine Clarity Clear (Clear) Urine pH 6.0 (5.0-8.0) pH Units Ur Specific [place] 1.018 (1.010-1.025) Urine Protein Negative (Neg-Trace) mg/dL Urine Glucose (UA) Normal (Normal) mg/dL - ABG Interpretation ABG results: PT/INR, D-dimer PT 18.1 Seconds (9.4-12.1) H 12/19/16 14:45 - Impressions Impressions Bone Biopsy CT 12/23/16 00:00 IMPRESSION: Evidence of cellulitis with soft tissue thickening and induration as well as skin ulceration in the tissues posterior to the inferior coccyx. No obvious bony destructive changes. The patient refused a biopsy procedure. D/ / 12/23/2016 11:52:25 Antonia Arnold MD / [facility] Interpreting Provider: Antonia Arnold MD Consult Discharge Plan - Plan Referrals: Renard Spears DO [Primary Care Provider] - ([facility] NO [facility]CP APPOINTMENT NEEDED) Palliative Quality Palliative Quality: Screen for Code Status: Yes, Screen for Goals of Care: Yes, Screen for Pain: Yes, If Pain Regimen Started, Initiate Bowel Regimen: Yes, Screen for Nausea/Vomitting: Yes Code Status: 12/16/16 16:14 Resuscitation Status: Active [RES] Routine Comment: Resuscitation Status: Full Code
[2016-12-23] MEDS ORDERED: 0.9 % Sodium Chloride 250 ML ONE (14:56)
[2016-12-23] MEDS: Gabapentin 300 MG CAPSULE PO SCH (20:45)
[2016-12-24] MEDS: Vancomycin 1,000 MG in D5% in Water 250 ML IVPB SCH (05:53)
[2016-12-24] MEDS: Albumin 25% 25gram/100mL 25 GM/100 ML IV.SOLN IVPB SCH ×2 (05:54→17:00)
[2016-12-24] MEDS: Pantoprazole 40 MG VIAL IVP SCH ×2 (05:54→17:00)
[2016-12-24 05:56] LABS: Basophils % 0.4 %; Eosinophils # 0.2 K/mcL (0.0-0.6); Eosinophils % 3.9 %; Hematocrit 24.8 % (35.3-44.9); Immature Granulocytes % 0.2 % (0-4); Lymphocytes # 2.2 K/mcL (0.6-4.6); Lymphocytes % 47.8 %; Mean Corpuscular HGB Conc 34.7 g/dL (31.6-35.5); Mean Corpuscular Hemoglobin 31.5 pg (28.0-33.3); Mean Platelet Volume 9.3 fL (9.4-12.4); Monocytes # 0.5 K/mcL (0.0-1.3); Monocytes % 10.7 %; Neutrophils # 1.7 K/mcL (1.6-8.9); Platelet Count 134 K/mcL (140-400); Red Blood Count 2.73 M/mcL (3.82-4.97); Red Cell Distribution Width 18.3 % (11.5-14.5)
[2016-12-24 05:58] LABS: Hemoglobin 8.6 g/dL (11.5-15.4); Mean Corpuscular Volume 90.8 fL (83.0-100.0)
[2016-12-24 06:07] LABS: BUN/Creatinine Ratio 7 (6-26); Blood Urea Nitrogen 3 mg/dL (7-20); Carbon Dioxide 27 mEq/L (19-29); Chloride 101 mEq/L (98-109); Glucose 70 mg/dL (70-99); Osmolality,Calculated 277 (280-300); Potassium 3.1 mEq/L (3.5-4.5); Sodium 136 mEq/L (136-145); eGFR For African Americans > 60 (> 60); eGFR For Non-African Americans > 60 (> 60)
[2016-12-24] MEDS: *HR* FentaNYL (PF) 100 MCG/2 ML VIAL IVP PRN ×2 (06:07→12:35)
[2016-12-24 06:27] LABS: Anisocytosis 1+ (Not Present); Platelet Estimate Slight Decrease (Normal); Reactive Lymphocytes Present (Not Present)
[2016-12-24] MEDS ORDERED: Potassium Chloride Elixir 20 MEQ/15 ML UDC PO ONE (06:56)
[2016-12-24] MEDS: Budesonide/Formoterol 160/4.5 MDI IH SCH ×2 (07:57→22:19)
[2016-12-24] MEDS: Meropenem 1,000 MG in 0.9 % Sodium Chloride Mini Bag 100 ML IVPB SCH ×2 (08:15→15:00)
[2016-12-24] MEDS: Furosemide 20 MG/2 ML VIAL IVP SCH ×2 (08:16→17:00)
[2016-12-24] MEDS: *HR* HYDROcodone/Acet 10/325 mg TABLET PO PRN ×2 (08:16→15:59)
[2016-12-24] MEDS: Folic Acid 1 MG TABLET PO SCH (08:16)
[2016-12-24] MEDS: Sucralfate 1 GM TABLET PO SCH ×2 (08:16→15:59)
[2016-12-24] MEDS: metOLazone 5 MG TABLET PO SCH (08:16)
[2016-12-24] MEDS: Magnesium Oxide 400 MG TABLET PO SCH ×2 (08:16→21:05)
--- NOTE | 2016-12-24 08:57 | Internal Med Progress Note ---
<Leandro Zhou - Last Filed: 12/24/16 09:56> Date of Encounter: 12/24/16 Time of Encounter: 08:55 - Assessment and plan (1) Osteomyelitis of coccyx Status: Acute Assessment and plan: Patient has known osteomyelitis of the coccyx/sacrum with MRSA, pseudomonas, Enterobacter, Klebsiella grown and wound cultures from November 25. Patient's home medications included Bactrim DS and vancomycin. urine and blood cultures showed no growth. Plan: continue vancomycin and meropenem. Pending discharge planning. will attempt to get patient to select senior care in [place] (2) Afib Status: Acute Assessment and plan: transient Afib/Aflutter amildarone gtt has been discontinued. Etiology likely secondary to sepsis. echo from 12/22/16 shoewd LVEF 60-65%, normal LV size and systolic funciton, mild diastolic dysfunction in LV, normal right ventricular size and function, no significant valvular dysfunction, not all valves wer well visualized. currently in sinus tach, with HR improving. Qualifiers: Atrial fibrillation type: unspecified Qualified Code(s): I48.91 - Unspecified atrial fibrillation (3) Anemia Status: Acute Assessment and plan: Chronic normocytic anemia, likely secondary to acute blood loss anemia from hematemesis. Plan: s/p transfusion of 1 unit. continue to monitor. Qualifiers: Anemia type: other cause Other causes of anemia: acute posthemorrhagic Qualified Code(s): D62 - Acute posthemorrhagic anemia (4) Esophagitis, erosive Status: Acute Assessment and plan: continue protonix and carafate. (5) Decubitus skin ulcer Status: Chronic Assessment and plan: Continued wound care. Turning regimen. Qualifiers: Pressure ulcer location: sacral region Pressure ulcer stage: stage 2 Qualified Code(s): L89.152 - Pressure ulcer of sacral region, stage 2 (6) Hematemesis Status: Acute Assessment and plan: Hematemesis likely secondary to severe erosive esophagitis per EGD report. EGD from 12/17/16 showed severe ischemic ulcerative esophagitis, black looking found near the lower third of the esophagus. plan as above Qualifiers: Nausea presence: with nausea Qualified Code(s): K92.0 - Hematemesis (7) Obesities, morbid Status: Chronic Assessment and plan: lifestyle modifications encouraged. (8) Generalized edema Status: Acute Assessment and plan: Patient has significant edema of both upper and lower extremities. Plan: IV lasix 20mg BID metolazone D/c today to prevent over diuresis. (9) DVT prophylaxis Status: Acute Assessment and plan: EPCDs - Subjective Interval history: 61 year old female evaluated at bedside. she denies nausea, vomiting, diarrhea, fever, chills, chest pain, shortness of breath. she states she feels slightly better today. Patient is refusing to take her oral potassium today and wants to know if she can take her capsules from home. - Constitutional Vitals: Temp Pulse Resp BP Pulse Ox 98.4 F 97 15 108/79 97 12/24/16 05:20 12/24/16 07:46 12/24/16 07:46 12/24/16 07:46 12/24/16 07:46 General appearance: Present: mild distress (with pain), A&O X 3, morbidly obese , no acute distress, answers questions appropriately - Head Head exam: Present: atraumatic, normocephalic - Neck Neck exam general surgery: Present: supple, trachea midline - Respiratory Additional comments: rales and wheezing present. - Cardiovascular Cardiovascular exam: Present: tachycardia - GI/Abdominal GI/Abdominal exam: Present: distended, soft, tenderness - Extremities Exam Extremities exam: Present: pedal edema (+2 bilateral pedal edema. edema in bilateral upper extremities significantly improved. ). Absent: cyanotic - Neurological Exam Neurological exam: Present: alert, oriented X3, no focal deficits - Psychiatric Psychiatric exam: Present: depressed, normal mood - Skin Additional comments: bruising present in bilateral upper extremities. seeping of fluid no longer present. Internal Medicine: Result - Labs CBC & Chem 7: 12/24/16 05:44 12/24/16 05:44 Labs: Short CBC 12/24/16 Range/Units 05:44 WBC 4.6 (4.3-11.1) K/mcL Hgb 8.6 L D (11.5-15.4) g/dL Hct 24.8 L (35.3-44.9) % Plt Count 134 L (140-400) K/mcL Neutrophils # 1.7 (1.6-8.9) K/mcL BMP 09/27/17 09/27/17 09/28/17 15:15 20:40 05:44 Sodium 136 Potassium 3.0 L 2.9 L 3.1 L Chloride 101 Carbon Dioxide 27 BUN 3 L Creatinine 0.43 L Glucose 70 Calcium 8.0 L - ABG Interpretation ABG results: PT/INR, D-dimer PT 18.1 Seconds (9.4-12.1) H 12/19/16 14:45 - Impressions Impressions Echocardiogram 12/22/16 13:18 Impressions: LVEF 60-65%. Normal left ventricular size and systolic function. There is evidence of mild diastolic dysfunction of the left ventricle. Normal right ventricular size and function. No significant valvular dysfunction - not all valves were well visualized. Suboptimal TR gradient to estimate RVSP. Left Ventricular Wall Motion: Rest Echo Findings All wall segments showed normal motion. Findings: Study Quality * Technically challenging due to clinical status. ECG Findings * Sinus tachycardia, heart rate low 100s. Aorta * Normally sized aortic root. Left Ventricle * LVEF 60-65%. * Normal LV chamber size, wall thickness and function. * Mild left ventricular diastolic dysfunction. Aortic Valve * No aortic regurgitation. * No aortic stenosis. * Not well visualized. Mitral Valve * Normal mitral valve structure. * No mitral regurgitation. * No mitral stenosis. Tricuspid Valve * Normal tricuspid valve structure. * Trace tricuspid regurgitation. Pulmonic Valve * Pulmonic valve not well visualized. * Suboptimal Doppler signal. Pulmonary Artery * Pulmonary artery not well visualized. Right Ventricle * Normal right ventricular structure and function. Left Atrium * Normal left atrial size. Right Atrium * Normal right atrial size. Pericardium * There is no pericardial effusion present. Interatrial Septum * Interatrial septum not well evaluated. IVC * The IVC is not well evaluated. Bone Biopsy CT 12/23/16 00:00 IMPRESSION: Evidence of cellulitis with soft tissue thickening and induration as well as skin ulceration in the tissues posterior to the inferior coccyx. No obvious bony destructive changes. The patient refused a biopsy procedure. D/ / 12/23/2016 11:52:25 Antonia Arnold MD / earnold Interpreting Provider: Antonia Arnold MD - VTE Documentation of Mechanical Device: Graduated compression elastic hosiery Consult Discharge Plan - Plan Instructions: Sepsis (DC) Referrals: Regan,Renard E, DO [Primary Care Provider] - (PATIENT IS FROM [facility] NO PCP APPOINTMENT NEEDED) Prescriptions: Furosemide [Lasix] 20 mg IV DAILY PRN #3 vial PRN Reason: Edema <Robert Cristobal - Last Filed: 12/27/16 18:45> Date of Encounter: 12/24/16 - Assessment and plan (1) Decubitus skin ulcer Status: Chronic Qualifiers: Pressure ulcer location: sacral region Pressure ulcer stage: stage 2 Qualified Code(s): L89.152 - Pressure ulcer of sacral region, stage 2 (2) Anemia Status: Acute Qualifiers: Other causes of anemia: acute posthemorrhagic (3) Hematemesis Status: Acute Qualifiers: Nausea presence: with nausea Qualified Code(s): K92.0 - Hematemesis (4) Obesities, morbid Status: Chronic (5) Esophagitis, erosive Status: Acute (6) Osteomyelitis of coccyx Status: Acute (7) DVT prophylaxis Status: Acute (8) Generalized edema Status: Acute - Constitutional Vitals: Temp Pulse Resp BP Pulse Ox 99.0 F 94 16 86/62 94 12/25/16 16:53 12/25/16 16:53 12/25/16 16:53 12/25/16 16:53 12/25/16 16:53 Internal Medicine: Result - Labs CBC & Chem 7: 12/25/16 04:30 12/25/16 10:45 - ABG Interpretation ABG results: PT/INR, D-dimer PT 18.1 Seconds (9.4-12.1) H 12/19/16 14:45 - Attending Attestation I examined this patient and my medical decision-making was reviewed with the Resident Physician, Dr. Zhou. I agree with the documented findings, disposition and treatment plan as described except to the extent set forth below. My findings are summarized below: On examination I find a 2 cm wide sacral decubitus ulcer that tracks deep under the skin, I cannot probe to bone but I also cannot clearly visualize the deepest part of the ulcer. I personally reviewed the CAT scan of her back which shows some soft tissue edema surrounding a coccygeal ulcer which appears to be deep possibly close the bone. Per radiology there is no imaging findings suggesting osteomyelitis. Assessment: Unstageable coccygeal decubitus ulcer with surrounding cellulitis. Plan: Continue broad-spectrum IV antibiotics, diligent skin care. Plan for discharge to long-term acute care hospital for further inpatient care.
--- NOTE | 2016-12-24 09:20 | Cardiology Progress Note ---
<Hiram Swain - Last Filed: 12/24/16 12:04> Date of Encounter: 12/24/16 Time of Encounter: 09:18 Assessment and Plan (1) Transient atrial fibrillation Current Visit: Yes Status: Acute There was a reported episode of atrial fibrillation three nights ago. The patient was then started on amiodorone but was discontinued yesterday. I was not able to find any rhythm strip or EKG that showed atrial fibrillation. The patient appeared to be in sinus rhythm on the monitor when she was examined. Echocardiogram showed LVEF of 60-65% with normal LV size and systolic fucntion, evidence of mild diastolic dysfucntion of LV, normal RV size and function, no significant valvular dysfunction not all valves well visualized, suboptimal TR gradient to estimate RVSP. (2) Atrial flutter Current Visit: Yes Status: Acute Patient had an episode of atrial flutter two days ago around 0814. It is unclear exactly how long this lasted but after reviewing the telemetry strip it appears that the maximum time it could have lasted was 7 minutes. Qualifiers: Atrial flutter type: unspecified Qualified Code(s): I48.92 - Unspecified atrial flutter (3) Tachycardia Current Visit: No Status: Resolved The patient has remained in sinus tachycardia. This is likely due to the patient being in pain and her anemia. We will not try to suppress her rate any further at this time. (4) Anemia Current Visit: Yes Status: Acute Patient appears to have some chronic anemia but did have an acute drop in her hemoglobin this was likely related to her hematemesis and GI symptoms. Her hemoglobin has increased over night. The most recent hemoglobin was 8.6 up from 6.7. EGD showed severe ischemic ulcerative esophagitis. Patient required trandfusion of 1 unit of blood yesterday. This is currently being managed by the hospitalist. Qualifiers: Anemia type: other cause Other causes of anemia: acute posthemorrhagic Qualified Code(s): D62 - Acute posthemorrhagic anemia (5) Esophagitis, erosive Current Visit: Yes Status: Acute Patient had 4 episodes of hematemesis and had an EGD done on 12/17/16 this showed severe ischemic ulcerative esophagitis, black looking in lower 3rd of esophagus. Patient is currently getting Protonix and Carafate. GI has been consulted on this patient. (6) Hematemesis Current Visit: Yes Status: Acute Patient had 4 episodes of hematemesis and had an EGD done on 12/17/16 this showed severe ischemic ulcerative esophagitis, black looking in lower 3rd of esophagus. Patient is currently getting Protonix and Carafate. GI has been consulted on this patient. Qualifiers: Nausea presence: with nausea Qualified Code(s): K92.0 - Hematemesis; R11.0 - Nausea (7) Osteomyelitis of coccyx Current Visit: Yes Status: Acute Patient has known osteomyelitis of the coccyx/sacrum from a large ulcer. This is currently being treated with vancomycin and meropenem. The patient currently has fentanyl and norco ordered for her pain associated with this. CT biposy of deep bone was ordered yesterday, per radiology report the patient had refused to have the biopsy done. Infectious disease has also been consulted. This is currently being managed by the hospitalist. (8) Generalized edema Current Visit: Yes Status: Acute The patient has 2+ pitting edema in the lower extremities bilaterally. There has been significant improvement in the upper extremity edema. There is currently minimal edema in the patients upper extremities. The upper and lower extremities both have small amounts of weeping. The patient is currently receiving lasix. The patient's I&O were -[phone] yesterday and -[phone] so far today. The patients Cr is currently 0.43. This is currently being managed by the hospitalist. (9) Obesities, morbid Current Visit: Yes Status: Chronic The patient is significantly over weight and would benefit from weight loss and lifestyle modifications. (10) Hypokalemia Current Visit: Yes Status: Acute The patients most recent potassium was 3.1 which is the same as yesterday. The patient is currently on electrolyte protocol. This is currently being managed by the hospitalist. (11) COPD (chronic obstructive pulmonary disease) Current Visit: No Status: Chronic The patient has a known history of COPD. It does not appear that this is an exacerbation of her COPD. This is currently being managed by the hospitalist. Qualifiers: COPD type: emphysema Emphysema type: unspecified Qualified Code(s): J43.9 - Emphysema, unspecified (12) DVT prophylaxis Current Visit: Yes Status: Acute The patient sub q heparin has been discontinued and EPCD have been ordered for DVT prophylaxis. This is currently being managed by the hospitalist. Discussion w patient/family: The assessment and plan as outlined above was discussed with the patient and/or family members who expressed understanding and agreement. All questions were answered. Thank you for involving us in the care of your patient. Please call with any questions. Subjective Principal diagnosis: Tachycardia Interval history: Patient states that she is still having pain in her back where she has the large ulcer and osteomyelitits. She states that it does feel a little bit better today because she was given some fentanyl. The patient and her both state that her upper extremity swelling has improved a lot. Patient denies any chest pain, shortness of breath, palpitations last night or today. She states that she has no heart complaints at this time. Patient denies any abdominal pain at this time. Patient does state that she is still having swelling in the lower extremities but has had significant improvement of the upper extremity swelling. The main complaint for this patient is that she is uncomfortable and still having back pain. Objective Vital Signs, Last 4 Hours Temp Pulse Resp BP Pulse Ox 12/24/16 08:30 98.4 F 97 15 108/79 97 12/24/16 07:46 97 15 108/79 97 12/24/16 06:30 95 12/24/16 05:20 98.4 F 95 18 109/79 97 General: Conversant, No Apparent Distress HEENT: Atraumatic, Normocephaly Neck: No JVD, Normal carotid pulses Cardiac: Normal S1 and S2, No Murmur, Other (Regular but tachycardic ) Lungs: Normal Breath Sounds, No Wheeze, Rales, Rhonchi Neuro: Alert and responsive Abdomen: Soft, Non-Tender Skin: No rashes noted on visualized skin Extremities: No Clubbing, No Cyanosis, Normal Pulses, Other (2+pitting edema in bilateral lower extremities. Minimal edema in bilateral upper extremities. Small amount of weeping in upper and lower extremities) Results 12/24/16 05:44 12/24/16 05:44 Lab Results 12/23/16 12/23/16 12/24/16 15:15 20:40 05:44 WBC 4.6 Hgb 8.6 L D Hct 24.8 L Plt Count 134 L Sodium Potassium 3.0 L 2.9 L Chloride Carbon Dioxide BUN Creatinine Glucose Calcium 12/24/16 05:44 WBC Hgb Hct Plt Count Sodium 136 Potassium 3.1 L Chloride 101 Carbon Dioxide 27 BUN 3 L Creatinine 0.43 L Glucose 70 Calcium 8.0 L - Imaging and Cardiology Echo: report reviewed - EKG Interpretation EKG results cardiology: personally reviewed (Sinus Tachycardia) - VTE Documentation of Mechanical Device: Graduated compression elastic hosiery Consult Discharge Plan - Plan Referrals: Renard Spears DO [Primary Care Provider] - ([facility] APPOINTMENT NEEDED) <Reid Canas - Last Filed: 12/24/16 19:43> Date of Encounter: 12/24/16 Time of Encounter: 11:15 Assessment and Plan (1) Transient atrial fibrillation Current Visit: Yes Status: Acute Pt seen and examined independently, chart reviewed, reviewed and discussed with house staff, essentially agree with documented findings. (2) Anemia Current Visit: Yes Status: Acute Qualifiers: Anemia type: other cause Other causes of anemia: acute posthemorrhagic Qualified Code(s): D62 - Acute posthemorrhagic anemia (3) Esophagitis, erosive Current Visit: Yes Status: Acute (4) Hematemesis Current Visit: Yes Status: Acute Qualifiers: Nausea presence: with nausea Qualified Code(s): K92.0 - Hematemesis; R11.0 - Nausea (5) Osteomyelitis of coccyx Current Visit: Yes Status: Acute (6) Generalized edema Current Visit: Yes Status: Acute (7) Obesities, morbid Current Visit: Yes Status: Chronic (8) COPD (chronic obstructive pulmonary disease) Current Visit: No Status: Chronic Qualifiers: COPD type: emphysema Emphysema type: unspecified Qualified Code(s): J43.9 - Emphysema, unspecified (9) DVT prophylaxis Current Visit: Yes Status: Acute Discussion w patient/family: The assessment and plan as outlined above was discussed with the patient and/or family members who expressed understanding and agreement. All questions were answered. Thank you for involving us in the care of your patient. Please call with any questions. Objective Vital Signs, Last 4 Hours Temp Pulse Resp BP Pulse Ox 12/24/16 18:36 99.9 F H 108 15 120/80 96 12/24/16 16:35 100.6 F H 99 16 86/50 99 12/24/16 15:51 100.6 F H 99 16 86/50 99 Results 12/24/16 05:44 12/24/16 05:44 Lab Results 12/23/16 12/24/16 12/24/16 20:40 05:44 05:44 WBC 4.6 Hgb 8.6 L D Hct 24.8 L Plt Count 134 L Sodium 136 Potassium 2.9 L 3.1 L Chloride 101 Carbon Dioxide 27 BUN 3 L Creatinine 0.43 L Glucose 70 Calcium 8.0 L
--- NOTE | 2016-12-24 09:48 | Palliative Progress Note ---
Date of Encounter: 12/24/16 Time of Encounter: 07:20 - Assessment and plan (1) Pain Current Visit: Yes Status: Acute Assessment and plan: Slowly getting better. Continue current meds. (2) Counseling regarding goals of care Current Visit: Yes Status: Acute Assessment and plan: Patient now DNR CCA, this is per her request yesterday. Goals of care are to continue her rehabilitation after the bleeding is stopped and try to get her decubitus ulcer healed. Palliative care was consulted regarding goals of care and CODE STATUS. 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 At this point there is little for palliative care to offer we will follow from a distance. (3) Esophagitis, erosive Current Visit: Yes Status: Acute Assessment and plan: Plan for hospitalist team GI is involved. Patient did require transfusion yesterday. (4) Osteomyelitis of coccyx Current Visit: Yes Status: Acute Assessment and plan: Plan per hospitalist team. The is the ESR is in normal limits. She is being followed at Dr. Eric Correa for this. - Time Spent With Patient Total time spent is greater than 50% in coordination of care (as documented) at patient's floor/unit and/or counseling patient: - Constitutional Vitals: Abnormal lab results RBC 2.73 M/mcL (3.82-4.97) L 12/24/16 05:44 Hgb 8.6 g/dL (11.5-15.4) L D 12/24/16 05:44 Hct 24.8 % (35.3-44.9) L 12/24/16 05:44 RDW 18.3 % (11.5-14.5) H 12/24/16 05:44 Plt Count 134 K/mcL (140-400) L 12/24/16 05:44 MPV 9.3 fL (9.4-12.4) L 12/24/16 05:44 Nucleated RBCs/100 WBC 0.1 /100 WBC (0) H 12/18/16 03:32 Reactive Lymphocytes Present (Not Present) A 12/24/16 05:44 Platelet Estimate Slight Decrease (Normal) L 12/24/16 05:44 Anisocytosis 1+ (Not Present) A 12/24/16 05:44 PT 18.1 Seconds (9.4-12.1) H 12/19/16 14:45 Potassium 3.1 mEq/L (3.5-4.5) L 12/24/16 05:44 BUN 3 mg/dL (7-20) L 12/24/16 05:44 Creatinine 0.43 mg/dL (0.57-1.11) L 12/24/16 05:44 Calculated Osmolality 277 (280-300) L 12/24/16 05:44 Calcium 8.0 mg/dL (8.6-10.8) L 12/24/16 05:44 Ionized Calcium 1.13 mmol/L (1.15-1.35) L 12/23/16 20:40 C-Reactive Protein 50 mg/L (Less than 5) H 12/18/16 03:32 Serum Total Protein 3.8 g/dL (6.0-8.3) L 12/18/16 04:00 Albumin 1.0 g/dL (3.5-5.0) L 12/18/16 04:00 Albumin/Globulin Ratio 0.4 (1.1-2.2) L 12/18/16 04:00 Urine Blood Moderate (Negative) H 12/22/16 17:30 Ur Leukocyte Esterase Moderate (Negative) H 12/22/16 17:30 Urine Microscopic RBC 15-30 per hpf (0-3) H 12/22/16 17:30 Urine Microscopic WBC 5-15 per hpf (0-3) H 12/22/16 17:30 Ur Squamous Epith Cells Many per lpf (None-Few) H 12/22/16 17:30 Ur Culture Indicated? YES (NO) A 12/22/16 17:30 Palliative Quality Palliative Quality: Screen for Code Status: Yes, Screen for Goals of Care: Yes, Screen for Pain: Yes, If Pain Regimen Started, Initiate Bowel Regimen: Yes, Screen for Nausea/Vomitting: Yes Code Status: 12/16/16 16:14 Resuscitation Status: Active [RES] Routine Comment: Resuscitation Status: Full Code Resuscitation Status: Active [RES] Routine Comment: Resuscitation Status: DNR-Comfort Care-Arrest - Labs CBC & Chem 7: 12/24/16 05:44 12/24/16 05:44 Labs: Laboratory Results - last 24 hr 0912/23/16 12/23/16 05:47 09:20 15:15 WBC RBC Hgb Hct MCV MCH MCHC RDW Plt Count MPV Immature Gran % Seg Neutrophils % Lymphocytes % Monocytes % Eosinophils % Basophils % Neutrophils # Lymphocytes # Monocytes # Eosinophils # Basophils # Reactive Lymphocytes Platelet Estimate Anisocytosis Sodium Potassium 3.0 L Chloride Carbon Dioxide BUN Creatinine Est GFR ( Amer) Est GFR (Non-Af Amer) BUN/Creatinine Ratio Glucose POC Glucose 88 Calculated Osmolality Calcium Ionized Calcium Blood Type O POSITIVE Antibody Screen NEGATIVE Crossmatch See Detail 12/23/16 12/23/16 12/24/16 20:40 20:40 05:44 WBC 4.6 RBC 2.73 L Hgb 8.6 L D Hct 24.8 L MCV 90.8 D MCH 31.5 MCHC 34.7 RDW 18.3 H Plt Count 134 L MPV 9.3 L Immature Gran % 0.2 Seg Neutrophils % 37.0 Lymphocytes % 47.8 Monocytes % 10.7 Eosinophils % 3.9 Basophils % 0.4 Neutrophils # 1.7 Lymphocytes # 2.2 Monocytes # 0.5 Eosinophils # 0.2 Basophils # 0.0 Reactive Lymphocytes Present A Platelet Estimate Slight Decrease L Anisocytosis 1+ A Sodium Potassium 2.9 L Chloride Carbon Dioxide BUN Creatinine Est GFR ( Amer) Est GFR (Non-Af Amer) BUN/Creatinine Ratio Glucose POC Glucose Calculated Osmolality Calcium Ionized Calcium 1.13 L Blood Type Antibody Screen Crossmatch 12/24/16 05:44 WBC RBC Hgb Hct MCV MCH MCHC RDW Plt Count MPV Immature Gran % Seg Neutrophils % Lymphocytes % Monocytes % Eosinophils % Basophils % Neutrophils # Lymphocytes # Monocytes # Eosinophils # Basophils # Reactive Lymphocytes Platelet Estimate Anisocytosis Sodium 136 Potassium 3.1 L Chloride 101 Carbon Dioxide 27 BUN 3 L Creatinine 0.43 L Est GFR ( Amer) > 60 Est GFR (Non-Af Amer) > 60 BUN/Creatinine Ratio 7 Glucose 70 POC Glucose Calculated Osmolality 277 L Calcium 8.0 L Ionized Calcium Blood Type Antibody Screen Crossmatch - Impressions Impressions Echocardiogram 12/22/16 13:18 Impressions: LVEF 60-65%. Normal left ventricular size and systolic function. There is evidence of mild diastolic dysfunction of the left ventricle. Normal right ventricular size and function. No significant valvular dysfunction - not all valves were well visualized. Suboptimal TR gradient to estimate RVSP. Left Ventricular Wall Motion: Rest Echo Findings All wall segments showed normal motion. Findings: Study Quality * Technically challenging due to clinical status. ECG Findings * Sinus tachycardia, heart rate low 100s. Aorta * Normally sized aortic root. Left Ventricle * LVEF 60-65%. * Normal LV chamber size, wall thickness and function. * Mild left ventricular diastolic dysfunction. Aortic Valve * No aortic regurgitation. * No aortic stenosis. * Not well visualized. Mitral Valve * Normal mitral valve structure. * No mitral regurgitation. * No mitral stenosis. Tricuspid Valve * Normal tricuspid valve structure. * Trace tricuspid regurgitation. Pulmonic Valve * Pulmonic valve not well visualized. * Suboptimal Doppler signal. Pulmonary Artery * Pulmonary artery not well visualized. Right Ventricle * Normal right ventricular structure and function. Left Atrium * Normal left atrial size. Right Atrium * Normal right atrial size. Pericardium * There is no pericardial effusion present. Interatrial Septum * Interatrial septum not well evaluated. IVC * The IVC is not well evaluated. Bone Biopsy CT 12/23/16 00:00 IMPRESSION: Evidence of cellulitis with soft tissue thickening and induration as well as skin ulceration in the tissues posterior to the inferior coccyx. No obvious bony destructive changes. The patient refused a biopsy procedure. D/ / 12/23/2016 11:52:25 Antonia Arnold MD / [facility] Interpreting Provider: Antonia Arnold MD - ABG Interpretation ABG results: PT/INR, D-dimer PT 18.1 Seconds (9.4-12.1) H 12/19/16 14:45 Consult Discharge Plan - Plan Referrals: Renard Spears DO [Primary Care Provider] - (PATIENT IS FROM [facility] NO PCP APPOINTMENT NEEDED)
[2016-12-24] MEDS: Potassium Chloride 40 MEQ/200 ML BAG IVPB PRN ×2 (15:00→17:02)
[2016-12-24] MEDS: Psyllium 1 PACKET POWD.PACK PO SCH ×2 (15:00→20:58)
[2016-12-24] MEDS ORDERED: *HR* Morphine 2 MG/ML SYRINGE IVP SCH (21:00)
[2016-12-24] MEDS: Gabapentin 300 MG CAPSULE PO SCH (21:06)
[2016-12-25] MEDS: Meropenem 1,000 MG in 0.9 % Sodium Chloride Mini Bag 100 ML IVPB SCH ×3 (00:20→16:34)
[2016-12-25] MEDS: *HR* HYDROcodone/Acet 10/325 mg TABLET PO PRN (04:15)
[2016-12-25] MEDS: Pantoprazole 40 MG VIAL IVP SCH ×2 (04:16→16:35)
[2016-12-25] MEDS: Vancomycin 1,000 MG in D5% in Water 250 ML IVPB SCH (04:16)
[2016-12-25 04:59] LABS: Basophils % 0.5 %; Eosinophils # 0.2 K/mcL (0.0-0.6); Eosinophils % 3.7 %; Hematocrit 27.7 % (35.3-44.9); Hemoglobin 9.3 g/dL (11.5-15.4); Immature Granulocytes % 0.3 % (0-4); Lymphocytes # 2.9 K/mcL (0.6-4.6); Lymphocytes % 43.7 %; Mean Corpuscular HGB Conc 33.6 g/dL (31.6-35.5); Mean Corpuscular Hemoglobin 30.3 pg (28.0-33.3); Mean Corpuscular Volume 90.2 fL (83.0-100.0); Mean Platelet Volume 9.7 fL (9.4-12.4); Monocytes # 0.6 K/mcL (0.0-1.3); Monocytes % 8.7 %; Neutrophils # 2.8 K/mcL (1.6-8.9); Nucleated Red Blood Cells 0.3 /100 WBC (0); Platelet Count 152 K/mcL (140-400); Red Blood Count 3.07 M/mcL (3.82-4.97); Red Cell Distribution Width 17.7 % (11.5-14.5); Segmented Neutrophils % 43.1 %
[2016-12-25 05:06] LABS: Magnesium 1.3 mg/dL (1.6-2.6)
[2016-12-25 05:12] LABS: BUN/Creatinine Ratio 4 (6-26); Calcium 8.3 mg/dL (8.6-10.8); Carbon Dioxide 32 mEq/L (19-29); Chloride 95 mEq/L (98-109); Glucose 76 mg/dL (70-99); Ionized Calcium 1.1 mmol/L (1.15-1.35); Osmolality,Calculated 275 (280-300); Potassium 2.7 mEq/L (3.5-4.5); Sodium 135 mEq/L (136-145); eGFR For African Americans > 60 (> 60); eGFR For Non-African Americans > 60 (> 60)
[2016-12-25 05:17] LABS: Blood Urea Nitrogen 2 mg/dL (7-20)
[2016-12-25 05:40] LABS: Platelet Estimate Normal (Normal)
[2016-12-25] MEDS: Magnesium Sulfate 2 GM in D5% in Water 100 ML IVPB PRN ×2 (05:55→13:58)
[2016-12-25] MEDS: Budesonide/Formoterol 160/4.5 MDI IH SCH (08:11)
[2016-12-25] MEDS: Furosemide 20 MG/2 ML VIAL IVP SCH (08:34)
[2016-12-25] MEDS: Sucralfate 1 GM TABLET PO SCH ×2 (08:34→16:35)
[2016-12-25] MEDS: Folic Acid 1 MG TABLET PO SCH (08:35)
[2016-12-25] MEDS: Magnesium Oxide 400 MG TABLET PO SCH (08:35)
[2016-12-25] MEDS: Psyllium 1 PACKET POWD.PACK PO SCH ×2 (08:35→15:14)
--- NOTE | 2016-12-25 10:00 | Cardiology Progress Note ---
<Hiram Swain - Last Filed: 12/25/16 12:48> Date of Encounter: 12/25/16 Time of Encounter: 09:58 Assessment and Plan (1) Transient atrial fibrillation Current Visit: Yes Status: Acute There was a reported episode of atrial fibrillation four nights ago. The patient was then started on amiodorone but has been discontinued. I was not able to find any rhythm strip or EKG that showed atrial fibrillation. The patient appeared to be in sinus rhythm on the monitor when she was examined. Echocardiogram showed LVEF of 60-65% with normal LV size and systolic fucntion, evidence of mild diastolic dysfucntion of LV, normal RV size and function, no significant valvular dysfunction not all valves well visualized, suboptimal TR gradient to estimate RVSP. We will sign off on this case today. Patient states that she does not wish to have a follow up appointment scheduled at this time. She states that everytime she has to come back to the hospital she has to come via squad and has to pay out of pocket for it. The patient stated that she would call for a follow up if she felt like she needed to be seen. The patient was encouraged to follow up with cardiology but decline to have an appointment scheduled at this time. (2) Atrial flutter Current Visit: Yes Status: Acute Patient had an episode of atrial flutter three days ago around 0814. It is unclear exactly how long this lasted but after reviewing the telemetry strip it appears that the maximum time it could have lasted was 7 minutes. Qualifiers: Atrial flutter type: unspecified Qualified Code(s): I48.92 - Unspecified atrial flutter (3) Tachycardia Current Visit: No Status: Resolved The patient has remained in sinus tachycardia. This is likely due to the patient being in pain and her anemia. We will not try to suppress her rate any further at this time. Current heart rate was 101. (4) Anemia Current Visit: Yes Status: Acute Acute on chronic anemia, acute blood loss due to GI bleed, with EGD demonstrating severe ischemic ulcerative esophagitis. Patient required transfusion of one unit blood on 12/23/16. Currently being managed by the hospitalist. Qualifiers: Anemia type: other cause Other causes of anemia: acute posthemorrhagic Qualified Code(s): D62 - Acute posthemorrhagic anemia (5) Esophagitis, erosive Current Visit: Yes Status: Acute Resolution on PPI and carafate, H&H stable. Most recent hemoglobin is 9.3 up from 8.6 yesterday. GI has been consulted. (6) Hematemesis Current Visit: Yes Status: Acute Patient had 4 episodes of hematemesis and had an EGD done on 12/17/16 this showed severe ischemic ulcerative esophagitis, black looking in lower 3rd of esophagus. Patient is currently getting Protonix and Carafate. GI has been consulted on this patient. Qualifiers: Nausea presence: with nausea Qualified Code(s): K92.0 - Hematemesis; R11.0 - Nausea (7) Osteomyelitis of coccyx Current Visit: Yes Status: Acute Severe low back/coccygeal pain due to osteomyelites. Patient stated that he pain has improved some from yesterday. Currently being treated with vancomycin and meropenem. Currently being managed by the hospitalist. (8) Generalized edema Current Visit: Yes Status: Acute Continued diffuse edema, improvement of upper extremity edema, multifactorial, increase diuresis with Zarolyn 5 mg q d in addition to IV lasix, monitor I&O (9) Obesities, morbid Current Visit: Yes Status: Chronic The patient is significantly over weight and would benefit from weight loss and lifestyle modifications. (10) Hypokalemia Current Visit: Yes Status: Acute The patients most recent potassium was 2.7 which is down from yesterday of 3.1. The patient is currently on electrolyte protocol. This is currently being managed by the hospitalist. (11) COPD (chronic obstructive pulmonary disease) Current Visit: No Status: Chronic The patient has a known history of COPD. It does not appear that this is an exacerbation of her COPD. This is currently being managed by the hospitalist. Qualifiers: COPD type: emphysema Emphysema type: unspecified Qualified Code(s): J43.9 - Emphysema, unspecified (12) DVT prophylaxis Current Visit: Yes Status: Acute EPCD have been ordered for DVT prophylaxis. This is currently being managed by the hospitalist. Discussion w patient/family: The assessment and plan as outlined above was discussed with the patient and/or family members who expressed understanding and agreement. All questions were answered. Thank you for involving us in the care of your patient. Please call with any questions. Subjective Principal diagnosis: Tachycardia Interval history: Patient states that she is still having pain in her back where she has the large ulcer and osteomyelitits. She states that it does feel somewhat better today. The patient states that she still feels that her upper extremity swelling has improved a lot. Patient denies any chest pain, shortness of breath , palpitations last night or today. She states that she has no heart complaints at this time. Patient denies any abdominal pain at this time. Patient does state that she is still having swelling in the lower extremities but has had significant improvement of the upper extremity swelling. The patient states she still has back pain but it is not as uncomfortable as what it was yesterday. She states that she is feeling tired this morning. Objective Vital Signs, Last 4 Hours Temp Pulse Resp BP Pulse Ox 12/25/16 07:12 98.5 F 102 14 106/79 95 General: Conversant, No Apparent Distress HEENT: Atraumatic, Normocephaly Neck: No JVD, Normal carotid pulses Cardiac: Normal S1 and S2, No Murmur, Other (Regular but tachycardic ) Lungs: Normal Breath Sounds, No Wheeze, Rales, Rhonchi Neuro: Alert and responsive, No focal deficits noted Abdomen: Soft, Non-Tender Skin: No rashes noted on visualized skin Extremities: No Clubbing, No Cyanosis, Normal Pulses, Other (2+ edema in bilateral lower extremities. Minimal edema in upper extremities bilaterally. ) Results 12/25/16 04:30 12/25/16 10:45 Lab Results 12/25/16 12/25/16 12/25/16 04:30 04:30 04:30 WBC 6.6 Hgb 9.3 L Hct 27.7 L Plt Count 152 Sodium 135 L Potassium 2.7 L Chloride 95 L Carbon Dioxide 32 H BUN 2 L Creatinine 0.45 L Glucose 76 Calcium 8.3 L Magnesium 1.3 L - Imaging and Cardiology Chest Xray: report reviewed Echo: report reviewed - EKG Interpretation EKG results cardiology: personally reviewed, other (Sinus tachycardia) - VTE Documentation of Mechanical Device: Intermittent pneumatic compression device Consult Discharge Plan - Plan Instructions: Sepsis (DC) Referrals: Renard Spears DO [Primary Care Provider] - (PATIENT IS FROM [facility] NO PCP APPOINTMENT NEEDED) Prescriptions: Furosemide [Lasix] 20 mg IV DAILY PRN #3 vial PRN Reason: Edema <Reid Canas - Last Filed: 12/25/16 17:46> Date of Encounter: 12/25/16 Time of Encounter: 10:05 Assessment and Plan (1) Transient atrial fibrillation Current Visit: Yes Status: Acute (2) Anemia Current Visit: Yes Status: Acute Acute blood loss anemia, received one unit PRBCs, continue to monitor. Qualifiers: Anemia type: other cause Other causes of anemia: acute posthemorrhagic Qualified Code(s): D62 - Acute posthemorrhagic anemia (3) Esophagitis, erosive Current Visit: Yes Status: Acute (4) Hematemesis Current Visit: Yes Status: Acute Qualifiers: Nausea presence: with nausea Qualified Code(s): K92.0 - Hematemesis; R11.0 - Nausea (5) Osteomyelitis of coccyx Current Visit: Yes Status: Acute (6) Generalized edema Current Visit: Yes Status: Acute (7) Obesities, morbid Current Visit: Yes Status: Chronic (8) COPD (chronic obstructive pulmonary disease) Current Visit: No Status: Chronic Qualifiers: COPD type: emphysema Emphysema type: unspecified Qualified Code(s): J43.9 - Emphysema, unspecified (9) DVT prophylaxis Current Visit: Yes Status: Acute Discussion w patient/family: The assessment and plan as outlined above was discussed with the patient and/or family members who expressed understanding and agreement. All questions were answered. Thank you for involving us in the care of your patient. Please call with any questions. Subjective Interval history: Pt reports heart racing and skipping has resolved. She continues to have difficulty with pain, low back and midline, mostly controlled on current pain meds. Objective Vital Signs, Last 4 Hours Temp Pulse Resp BP Pulse Ox 12/25/16 16:53 99.0 F 94 16 86/62 94 Results 12/25/16 04:30 12/25/16 10:45 Lab Results 12/25/16 12/25/16 12/25/16 04:30 04:30 04:30 WBC 6.6 Hgb 9.3 L Hct 27.7 L Plt Count 152 Sodium 135 L Potassium 2.7 L Chloride 95 L Carbon Dioxide 32 H BUN 2 L Creatinine 0.45 L Glucose 76 Calcium 8.3 L Magnesium 1.3 L 12/25/16 10:45 WBC Hgb Hct Plt Count Sodium Potassium 2.9 L Chloride Carbon Dioxide BUN Creatinine Glucose Calcium Magnesium 1.8
[2016-12-25] MEDS: *HR* FentaNYL (PF) 100 MCG/2 ML VIAL IVP PRN (10:19)
[2016-12-25 11:27] LABS: Magnesium 1.8 mg/dL (1.6-2.6); Phosphorous 2.7 mg/dL (2.3-4.7); Potassium 2.9 mEq/L (3.5-4.5)
[2016-12-25] MEDS ORDERED: Potassium Phosphate 44 MEQ in 0.9 % Sodium Chloride 250 ML IVPB PRN (12:34)
[2016-12-25] MEDS: Potassium Chloride 40 MEQ/200 ML BAG IVPB PRN ×2 (12:49→15:13)
--- NOTE | 2016-12-25 13:18 | Event Note ---
Date of Encounter: 12/25/16 Time of Encounter: 13:16 CODE STATUS DNR CCA, care have been discussed and patient is interested in continuing rehabilitation after the bleeding has stopped, and her ulcer is better healed. Palliative care was consulted regarding CODE STATUS and goals of care, is have been worked out as above, and his dad advanced directives and copies are on the chart. At this point palliative we will sign off please feel free to reconsult if needed.
--- NOTE | 2016-12-25 13:57 | Internal Med Progress Note ---
Date of Encounter: 12/25/16 Time of Encounter: 11:00 - Assessment and plan (1) Osteomyelitis of coccyx Status: Acute Assessment and plan: Patient has known osteomyelitis of the coccyx/sacrum with MRSA, pseudomonas, Enterobacter, Klebsiella grown and wound cultures from November 25. Patient's home medications included Bactrim DS and vancomycin. urine and blood cultures showed no growth. Plan: continue vancomycin and meropenem. Most likely home today (2) Decubitus ulcer, stage 4 Status: Acute Qualifiers: Pressure ulcer location: unspecified location Qualified Code(s): L89.94 - Pressure ulcer of unspecified site, stage 4 (3) Esophagitis, erosive Status: Acute Assessment and plan: continue protonix and carafate. (4) Generalized edema Status: Acute (5) Anemia due to blood loss Status: Acute Assessment and plan: from erosive esophagitis. Continue ppi and carafate. - Subjective Interval history: no complaints, no acute events - Constitutional Vitals: Temp Pulse Resp BP Pulse Ox 98.8 F 93 14 84/61 93 12/25/16 11:57 12/25/16 11:57 12/25/16 11:57 12/25/16 11:57 12/25/16 11:57 General appearance: Present: mild distress (with pain), A&O X 3, morbidly obese , no acute distress, answers questions appropriately Exam: - Head Head exam: Present: atraumatic, normocephalic - Neck Neck exam general surgery: Present: supple, trachea midline - Respiratory Additional comments: rales and wheezing present. - Cardiovascular Cardiovascular exam: Present: tachycardia - GI/Abdominal GI/Abdominal exam: Present: distended, soft, tenderness - Extremities Exam Extremities exam: Present: pedal edema (+2 bilateral pedal edema. edema in bilateral upper extremities significantly improved. ). Absent: cyanotic - Neurological Exam Neurological exam: Present: alert, oriented X3, no focal deficits - Psychiatric Psychiatric exam: Present: depressed, normal mood - Skin Additional comments: bruising present in bilateral upper extremities. seeping of fluid no longer present. Internal Medicine: Result - Labs CBC & Chem 7: 12/25/16 04:30 12/25/16 10:45 Labs: Short CBC 12/25/16 Range/Units 04:30 WBC 6.6 (4.3-11.1) K/mcL Hgb 9.3 L (11.5-15.4) g/dL Hct 27.7 L (35.3-44.9) % Plt Count 152 (140-400) K/mcL Neutrophils # 2.8 (1.6-8.9) K/mcL BMP 12/25/16 12/25/16 04:30 10:45 Sodium 135 L Potassium 2.7 L 2.9 L Chloride 95 L Carbon Dioxide 32 H BUN 2 L Creatinine 0.45 L Glucose 76 Calcium 8.3 L - ABG Interpretation ABG results: PT/INR, D-dimer PT 18.1 Seconds (9.4-12.1) H 12/19/16 14:45 - VTE Documentation of Mechanical Device: Intermittent pneumatic compression device Consult Discharge Plan - Plan Instructions: Sepsis (DC) Referrals: Renard Spears DO [Primary Care Provider] - (PATIENT IS FROM [facility] NO PCP APPOINTMENT NEEDED) Prescriptions: Furosemide [Lasix] 20 mg IV DAILY PRN #3 vial PRN Reason: Edema
--- NOTE | 2016-12-25 15:32 | Discharge Summary ---
Date of Encounter: 12/25/16 Time of Encounter: 15:30 - Discharge Diagnosis (1) Osteomyelitis of coccyx Priority: Primary Status: Acute (2) Sepsis Priority: Secondary Status: Acute Qualifiers: Sepsis type: sepsis due to unspecified organism Qualified Code(s): A41.9 - Sepsis, unspecified organism (3) Afib Priority: Secondary Status: Acute Qualifiers: Atrial fibrillation type: unspecified Qualified Code(s): I48.91 - Unspecified atrial fibrillation (4) Atrial flutter Priority: Secondary Status: Acute Qualifiers: Atrial flutter type: unspecified Qualified Code(s): I48.92 - Unspecified atrial flutter (5) Anemia Priority: Secondary Status: Acute Qualifiers: Anemia type: other cause Other causes of anemia: acute posthemorrhagic Qualified Code(s): D62 - Acute posthemorrhagic anemia (6) Esophagitis, erosive Priority: Secondary Status: Acute - Discharge Medications Home Medications: Albuterol Sulfate [Ventolin Hfa] 2 puff IH Q4H PRN 07/03/16 [History] Gabapentin [Neurontin] 300 mg PO HS 07/03/16 [History] Ipratropium/Albuterol Neb [Duoneb] 3 ml IH Q4H PRN 07/03/16 [History] Docusate [Colace] 100 mg PO BID 10/12/16 [History] Nystatin POWDER [Nystop] 1 appl TP DAILY PRN 10/12/16 [History] Fluticasone/Salmeterol [Advair 500-50 Diskus] 2 puff IH BID 11/20/16 [History] Folic Acid 1 mg PO DAILY 11/20/16 [History] Multivitamin with Minerals [Myvitalife] 1 each PO DAILY 11/20/16 [History] FentaNYL PATCH [Duragesic] 12 mcg TD Q72H #10 patch.td72 11/22/16 [Rx] Magnesium Oxide [Mag-Ox] 400 mg PO BID tab 11/22/16 [Rx] Amino Acids/Protein Hydrolys [Pro-Stat Awc Liquid Packet] 30 ml PO BID 12/16/16 [History] Guaifenesin [Mucinex] 600 mg PO BID 12/16/16 [History] Lactobacillus [Culturelle] 1 each PO BID 12/16/16 [History] Mag Hydrox/Al Hydrox/Simeth [Antacid Suspension] 15 ml PO Q4H PRN 12/16/16 [ History] Metoprolol [Lopressor] 25 mg PO BID 12/16/16 [History] Mirtazapine 7.5 mg PO DAILY 12/16/16 [History] Vancomycin HCl in Dextrose 5 % [Vancomycin 750 mg/250 ml-D5w] 750 mg IV Q12H [History] Acetaminophen [Tylenol] 650 mg PO Q6HR PRN tablet 12/25/16 [Rx] Albuterol Sulfate [Albuterol Inhaler] 2 puff IH [id number] PRN inhaler 12/25/16 [ Rx] Budesonide/Formoterol 160/4.5 [Symbicort 160/4.5] 2 puff IH BIDR inhaler [Rx] HYDROcodone/Acet 10/325 mg [[place] 10-325 mg] 1 each PO Q6H PRN tablet 12/25/16 [Rx] Ipratropium/Albuterol Neb [Duoneb] 3 ml IH [id number] PRN inhsol 12/25/16 [Rx] Morphine [Morphine Sulfate] 2 mg IVP HS syringe 12/25/16 [Rx] Naloxone [Narcan] 0.4 mg IVP Q2MIN PRN inj 12/25/16 [Rx] Ondansetron [Zofran] 4 mg IVP Q6HR PRN vial 12/25/16 [Rx] Promethazine [Phenergan] 12.5 mg IVP Q6HR PRN vial 12/25/16 [Rx] Psyllium [Metamucil Fiber Singles Packet] 1 packet PO TID powd.pack 12/25/16 [ Rx] Sucralfate [Carafate] 1 gm PO 0730,1630 tablet 12/25/16 [Rx] Allergies/Adverse Reactions: 3 Allergy/AdvReac Type Severity Reaction Status Date / Time meloxicam [From Mobic] Allergy Hives Verified 11/20/16 16:10 Oxycodone [From Percocet] Allergy Hives Verified 11/20/16 16:10 tramadol AdvReac See Verified 11/20/16 16:10 Comments Procedures/tests Complete & Pending: Procedures Performed prior 72 hours Category Date Time Status CT biopsy bone deep [CT] Routine Cat Scan 12/23/16 Completed Date of admission: 12/16/16 16:14 Primary care physician: Renard Spears DO Consults: 12/16/16 16:45 Consult to Gastroenterology [CONS] Routine Consulting Provider: Gastroenterology A[facility] Reason for Consult: Hematemesis Call Completed: Yes 12/17/16 09:49 Consult to Physical Therapy [CONS] Routine Comment: Evaluate, develop and implement POC Reason for Consult: Eval and treat 12/17/16 09:50 Consult to Occupational Therapy [CONS] Routine Comment: Evaluate, develop and implement POC Reason for Consult: Eval and treat 12/18/16 03:12 Consult to Wound Care [CONS] Routine Reason for Consult: wound to coccyx Call Completed: No 12/21/16 09:17 Consult to Cardiology [CONS] Routine Comment: Consulting Provider: Cardiology [place] Reason for Consult: new onset Afib RVR Call Completed: Yes 12/22/16 15:47 Consult to Interventional Radiology [CONS] Routine Consulting Provider: Radiology Interventional [facility] Reason for Consult: patient with known osteomyelitis of coccyx, bone biopsy requested per ID Call Completed: Yes 12/22/16 15:49 Consult to Infectious Diseases [CONS] Routine Consulting Provider: Infectious Disease A[facility] Reason for Consult: osteomyelitis of coccyx Call Completed: Yes 12/23/16 11:07 Consult to Palliative Care [CONS] Routine Comment: Consulting Provider: Palliative Care [place] Reason for Consult: discuss code status and goals of care. Call Completed: Yes 12/24/16 10:42 Consult to Wound Care [CONS] Stat Reason for Consult: sacral decub Call Completed: No - Patient Status Disposition: Transfer LTC Condition: Fair - Discharge Instructions Follow Up With: Renard Spears DO [Primary Care Provider] - (PATIENT IS FROM [facility] NO PCP APPOINTMENT NEEDED) - Diet and Activity Activity: as per physical therapy Diet: low fat, low cholesterol, low salt diet Hospital course: Ms. Renee is a 61 year old female - Time Spent with Patient Total time spent providing and/or coordinating discharge services: - Constitutional Vitals: Temp Pulse Resp BP Pulse Ox 98.8 F 93 14 84/61 93 12/25/16 11:57 12/25/16 11:57 12/25/16 11:57 12/25/16 11:57 12/25/16 11:57 General appearance: Present: mild distress (with pain), A&O X 3, morbidly obese , no acute distress, answers questions appropriately - VTE Documentation of Mechanical Device: Intermittent pneumatic compression device
--- NOTE | 2016-12-25 15:42 | Physician Discharge Referral ---
ExtendedCare Referral Info Transfer To: [facility] Provider in Charge after Transfer: PCP Institutional Level of Care: Skilled (LTAC) - Diagnosis (1) Osteomyelitis of coccyx Priority: Primary Status: Acute (2) Sepsis Priority: Secondary Status: Acute (3) Afib Priority: Secondary Status: Acute (4) Atrial flutter Priority: Secondary Status: Acute (5) Anemia Priority: Secondary Status: Acute (6) Esophagitis, erosive Priority: Secondary Status: Acute - Transfer Medications Home Medications: Albuterol Sulfate [Ventolin Hfa] 2 puff IH Q4H PRN 07/03/16 [History] Gabapentin [Neurontin] 300 mg PO HS 07/03/16 [History] Ipratropium/Albuterol Neb [Duoneb] 3 ml IH Q4H PRN 07/03/16 [History] Docusate [Colace] 100 mg PO BID 10/12/16 [History] Nystatin POWDER [Nystop] 1 appl TP DAILY PRN 10/12/16 [History] Fluticasone/Salmeterol [Advair 500-50 Diskus] 2 puff IH BID 11/20/16 [History] Folic Acid 1 mg PO DAILY 11/20/16 [History] Multivitamin with Minerals [Myvitalife] 1 each PO DAILY 11/20/16 [History] FentaNYL PATCH [Duragesic] 12 mcg TD Q72H #10 patch.td72 11/22/16 [Rx] Magnesium Oxide [Mag-Ox] 400 mg PO BID tab 11/22/16 [Rx] Amino Acids/Protein Hydrolys [Pro-Stat Awc Liquid Packet] 30 ml PO BID 12/16/16 [History] Guaifenesin [Mucinex] 600 mg PO BID 12/16/16 [History] Lactobacillus [Culturelle] 1 each PO BID 12/16/16 [History] Mag Hydrox/Al Hydrox/Simeth [Antacid Suspension] 15 ml PO Q4H PRN 12/16/16 [ History] Metoprolol [Lopressor] 25 mg PO BID 12/16/16 [History] Mirtazapine 7.5 mg PO DAILY 12/16/16 [History] Vancomycin HCl in Dextrose 5 % [Vancomycin 750 mg/250 ml-D5w] 750 mg IV Q12H [History] Acetaminophen [Tylenol] 650 mg PO Q6HR PRN tablet 12/25/16 [Rx] Albuterol Sulfate [Albuterol Inhaler] 2 puff IH [id number] PRN inhaler 12/25/16 [ Rx] Budesonide/Formoterol 160/4.5 [Symbicort 160/4.5] 2 puff IH BIDR inhaler [Rx] HYDROcodone/Acet 10/325 mg [[place] 10-325 mg] 1 each PO Q6H PRN tablet 12/25/16 [Rx] Ipratropium/Albuterol Neb [Duoneb] 3 ml IH [id number] PRN inhsol 12/25/16 [Rx] Morphine [Morphine Sulfate] 2 mg IVP HS syringe 12/25/16 [Rx] Naloxone [Narcan] 0.4 mg IVP Q2MIN PRN inj 12/25/16 [Rx] Ondansetron [Zofran] 4 mg IVP Q6HR PRN vial 12/25/16 [Rx] Promethazine [Phenergan] 12.5 mg IVP Q6HR PRN vial 12/25/16 [Rx] Psyllium [Metamucil Fiber Singles Packet] 1 packet PO TID powd.pack 12/25/16 [ Rx] Sucralfate [Carafate] 1 gm PO 0730,1630 tablet 12/25/16 [Rx] Allergies/Adverse Reactions: 3 Allergy/AdvReac Type Severity Reaction Status Date / Time meloxicam [From Mobic] Allergy Hives Verified 11/20/16 16:10 Oxycodone [From Percocet] Allergy Hives Verified 11/20/16 16:10 tramadol AdvReac See Verified 11/20/16 16:10 Comments - Respiratory Orders None Smoking Cessation: Smoking cessation has been advised. For more information, call the [place] Tobacco Quit Line at 7-948-DVPK-NOW. - Ancillary Orders May use pressure relief devices daily prn - Mobility Orders Bedrest - Rehabiliation Orders Rehab Potential: Fair Rehab Orders: Evaluation for Physical Therapy, Evaluation for Occupational Therapy - Treatments Skin tear care topically daily PRN per policy, May check for fecal impaction rectally daily PRN - Diet Orders No Added Salt (LISA) CERTIFICATION: I certify that the transfer of the above named patient to an Extended Care Facility is necessary for the continuing treatment of the diagnosis listed. The above information is true and accurate reflection of patient's current condition. Confidential - Redisclosure prohibited without a patient's written consent.
[2016-12-25 17:06] VITALS: BP 86/62
[2016-12-25] MEDS ORDERED: FLUARIX QUAD 2017-18 36MOS UP/PF 0.5 ML SYRINGE IM ONE (17:35)
[2016-12-25] MEDS ORDERED: Aminoglycoside Consult 1 EACH MC ONE (19:09)
== END 2016-12-25 19:10 | DRG 871 ==
LOC: 2NNU → SUATTDRO 16:14 → ICNU 12-17 18:55 → 2ANU 12-19 12:10 → ICNU 12-20 23:11 → 2NNU 12-21 20:37
PROVIDERS: ADMIT Family Medicine; ATTEND Internal Medicine